=== PATIENT | male | born 2000 | race Caucasian/White ===

== ENCOUNTER 2022-07-02 13:23 | Observation (INO) | payer BC, SELFPAY ==
[2022-07-02] VITALS (14 sets, daily range): BP systolic 94–128; BP diastolic 52–85; PULSE 69–90; RESP 12–16; TEMP 36–36.9; O2SAT 96–100; BMI 18.7; BMI 18.4
[2022-07-02 14:16] LABS: Bedside Glucose 455 mg/dL (74-106)
--- NOTE | 2022-07-02 14:21 | EDS_ITS ---
HPI <TERRELL Villalba - Last Filed: 07/02/22 15:34> History of Present Illness Chief Complaint: Hyperglycemia Narrative Narrative: 21-year-old male with history of type 1 diabetes, anxiety, depression, ADHD who is now currently homeless presents to the emergency department for elevated blood sugar, abdominal pain, nausea and vomiting. Patient states that for several years he is not taking care of his blood sugar properly, he states that he only thing of 1 thing at a time and usually does not take care of his blood sugars. He denies any fevers or chills, denies any blood in his stool or his vomit. He has had admissions for DKA in the past, patient denies any chest pain or shortness of breath. [facility] <TERRELL Villalba - Last Filed: 07/02/22 15:34> [facility] Medical History (Updated 07/02/22 @ 15:34 by TERRELL Villalba) MCAD deficiency Type 1 diabetes Allergy/AdvReac Type Severity Reaction Status Date / Time No Known Allergies Allergy Verified 07/02/22 13:28 Surgical History (Updated 07/02/22 @ 13:55 by Rusty Brown RN) History of hernia surgery Social History Smoking Status: Current every day smoker tobacco type: e-cigarettes ROS <TERRELL Villalba - Last Filed: 07/02/22 15:34> ROS ED ROS Narrative Constitutional: Negative for fever, chills, weight loss, weakness Eyes: Negative for vision loss, vision change, double vision ENT: Negative for any sore throat, ear pain, congestion Cardiovascular: Negative for any chest pain, tightness, palpitations Respiratory: Negative for any cough, sputum production, hemoptysis, dyspnea, dyspnea on exertion, orthopnea Gastrointestinal: Negative for any diarrhea, constipation, blood in stool, blood in vomit. Positive for abdominal pain, nausea, vomiting, elevated blood sugar : Negative for any dysuria, retention, blood in urine. Positive for urinary frequency Muscle skeletal: Negative for any muscle joint pain, stiffness, myalgias, arthralgias, neck pain, back pain Neurological: Negative for any headache, syncope, numbness or tingling, dizziness Skin: Negative for any rashes, lumps, itching, abrasions, lacerations Psychiatric: Negative for any depression, anxiety, stress, suicidal ideation, homicidal ideation Hematologic: Negative for any easy bruising, excessive bruising, easy bleeding Allergies: Negative for any eczema, hives, rash EXAM <TERRELL Villalba - Last Filed: 07/02/22 15:34> Physical Exam Narrative Exam Narrative: Vital signs reviewed. Patient's blood sugar was in the mid 400s on initial glucose test. HEET: Head normocephalic atraumatic, TMs clear bilaterally. Posterior pharynx is clear, moist mucous membranes. Nares clear bilaterally. Slight smell of ketones in the patient's breath Neck: Supple with no lymphadenopathy or tenderness. No signs of meningismus, negative jolt sign. Cardiac: Regular rate and rhythm no murmurs gallops or rubs, equal peripheral pulses bilaterally. Respiratory: Lungs clear to auscultation bilaterally. No chest tenderness. Abdomen: Soft, nontender, nondistended. No abdominal bruit or pulsatile masses. No hepatosplenomegaly Extremities: No peripheral edema, no signs of gross trauma or deformity. Active full range of motion of all extremities. Neuro: Cranial nerves II through XII intact, no focal neurological deficits. Skin: Clean dry and intact with no rash, purpura, petechiae, vesicles or pustules. Backs/flank: No CVA tenderness, no midline spinal tenderness, no deformity. Psych: Normal mood and affect. No SI, HI or acute psychosis. Const Vital Signs: 07/02/22 13:24 07/02/22 13:53 Temperature 96.8 F L 96.8 F L Temperature Source Temporal Temporal Pulse Rate 84 84 Respiratory Rate 16 16 Blood Pressure 122/84 H 122/84 H Blood Pressure Mean 96 96 Pulse Ox 100 100 Oxygen Delivery Method Room Air Room Air Positive well nourished and well developed General Appearance ED: well developed <Dr. Maikol Hines, DO - Last Filed: 07/02/22 15:28> Physical Exam Const Vital Signs: 07/02/22 13:24 07/02/22 13:53 Temperature 96.8 F L 96.8 F L Temperature Source Temporal Temporal Pulse Rate 84 84 Respiratory Rate 16 16 Blood Pressure 122/84 H 122/84 H Blood Pressure Mean 96 96 Pulse Ox 100 100 Oxygen Delivery Method Room Air Room Air MDM <TERRELL Villalba - Last Filed: 07/02/22 15:34> MDM Lab Data Labs: Laboratory Results - last 24 hr 07/02/22 07/02/22 07/02/22 13:52 14:30 14:30 WBC 10.7 RBC 5.02 Hgb 14.9 Hct 44.9 MCV 89.4 MCH 29.7 MCHC 33.2 RDW Std Deviation 42.1 RDW Coeff of Violeta 12.8 Plt Count 307 MPV 9.0 Immature Gran % (Auto) 0.400 Neut % (Auto) 80.0 H Lymph % (Auto) 14.8 L [place] % (Auto) 3.5 Eos % (Auto) 0.9 Baso % (Auto) 0.4 Absolute Neuts (auto) 8.6 H Absolute Lymphs (auto) 1.59 Nucleated RBC % 0 Sodium 132 L Potassium 4.6 Chloride 99 Carbon Dioxide 15.0 L Anion Gap 18 H BUN 15 Creatinine 0.98 Estim Creat Clear Calc 95.68 Est GFR (MDRD) Af Amer 126 Est GFR (MDRD) Non-Af 104 BUN/Creatinine Ratio 15.3 Glucose 263 H Calcium 9.6 Total Bilirubin 1.00 AST 121 H ALT 243 H Alkaline Phosphatase 121 H Total Protein 7.7 Albumin 4.0 Globulin 3.7 Albumin/Globulin Ratio 1.1 Lipase 42 L Urine Color Urine Clarity Urine pH Ur Specific [place] Urine Protein Urine Glucose (UA) Urine Ketones Urine Occult Blood Urine Nitrite Urine Bilirubin Urine Urobilinogen Ur Leukocyte Esterase Acetone Level POC Glucose 455 H* 07/02/22 07/02/22 14:30 14:30 WBC RBC Hgb Hct MCV MCH MCHC RDW Std Deviation RDW Coeff of Violeta Plt Count MPV Immature Gran % (Auto) Neut % (Auto) Lymph % (Auto) [place] % (Auto) Eos % (Auto) Baso % (Auto) Absolute Neuts (auto) Absolute Lymphs (auto) Nucleated RBC % Sodium Potassium Chloride Carbon Dioxide Anion Gap BUN Creatinine Estim Creat Clear Calc Est GFR (MDRD) Af Amer Est GFR (MDRD) Non-Af BUN/Creatinine Ratio Glucose Calcium Total Bilirubin AST ALT Alkaline Phosphatase Total Protein Albumin Globulin Albumin/Globulin Ratio Lipase Urine Color Straw Urine Clarity Clear Urine pH 6.0 Ur Specific [place] 1.020 Urine Protein Negative Urine Glucose (UA) 1000 H Urine Ketones 150 A* Urine Occult Blood Negative Urine Nitrite Negative Urine Bilirubin Negative Urine Urobilinogen Normal Ur Leukocyte Esterase Negative Acetone Level SMALL H POC Glucose ABG Data ABG results: ABG 07/02/22 14:52 Specimen Type INESSA VBG pH 7.37 VBG pO2 35 VBG HCO3 19 L VBG Total CO2 21 L VBG O2 Sat (Calc) 66 VBG Base Excess -6 L POC Mix VBG pCO2 Pt Tmp 34.0 L Treatment and Re-Evaluation Narrative: Patient appears well, patient appears nontoxic, vital signs are stable. Patient presents the emergency department for uncontrolled blood sugars. Patient is currently homeless, does not have any of his medication, does not check his blood sugar regularly. Patient did receive a DKA work-up.Patient was given IV fluids. Patient's CBC was unremarkable, patient's chemistries show hyponatremia, blood glucose of 263, elevated liver enzymes with elevated AST of 121, ALT of 243 with alkaline phos 121. Patient's acetone level is small, patient's anion gap is 18 VBG was unremarkable. Patient's does meet criteria for diabetic ketoacidosis. Patient was given another liter of normal saline, started on D5 half-normal saline, as well as a insulin drip. Patient be admi tted to the hospital for observation under ICU. Patient is stable. <Dr. Maikol Hines, DO - Last Filed: 07/02/22 15:28> [facility] Narrative Medical decision making narrative: I have personally performed a face to face assessment of the patient and have reviewed the JITENDRA Note. I performed a substantive portion of the visit including all aspects of the following. My otero findings include: History: Patient presents with elevated blood sugars that were noticed today. Patient admits to some mild abdominal pain. Patient also admits to some urinary frequency. Patient denies any nausea or vomiting. Patient denies any chest pain or shortness of breath. Patient is insulin-dependent diabetic. Exam: Vital signs are stable. Patient is afebrile. Patient is in no acute distress. Oral mucosa is pink and moist. Neck is supple. Trachea is midline. There is no JVD. Heart was regular rate and rhythm. Lungs are clear and equal bilaterally. Abdomen is soft. Bowel sounds are normal. There is minimal tenderness. There is no rebound or guarding noted. Cranial nerves II through XII are intact. There are no focal motor or sensory deficits. Medical Decision Making: Patient was given IV fluids, Zofran, and Toradol. CBC was within normal limits. Comprehensive metabolic profile showed an elevated glucose of 263, anion gap was elevated at 18, CO2 was low at 15, sodium was slightly low at 132. Urinalysis shows ketones of 150. Serum acetone was small. Patient started on insulin drip. Patient was started on D5 half-normal saline. Case was discussed with the hospitalist. She will admit the patient to ICU. Patient understood and was agreeable with the plan. All questions were answered. Lab Data Attestation: I reviewed the patient's lab results. Labs: Laboratory Results - last 24 hr 07/02/22 07/02/22 07/02/22 13:52 14:30 14:30 WBC 10.7 RBC 5.02 Hgb 14.9 Hct 44.9 MCV 89.4 MCH 29.7 MCHC 33.2 RDW Std Deviation 42.1 RDW Coeff of Violeta 12.8 Plt Count 307 MPV 9.0 Immature Gran % (Auto) 0.400 Neut % (Auto) 80.0 H Lymph % (Auto) 14.8 L [place] % (Auto) 3.5 Eos % (Auto) 0.9 Baso % (Auto) 0.4 Absolute Neuts (auto) 8.6 H Absolute Lymphs (auto) 1.59 Nucleated RBC % 0 Sodium 132 L Potassium 4.6 Chloride 99 Carbon Dioxide 15.0 L Anion Gap 18 H BUN 15 Creatinine 0.98 Estim Creat Clear Calc 95.68 Est GFR (MDRD) Af Amer 126 Est GFR (MDRD) Non-Af 104 BUN/Creatinine Ratio 15.3 Glucose 263 H Calcium 9.6 Total Bilirubin 1.00 AST 121 H ALT 243 H Alkaline Phosphatase 121 H Total Protein 7.7 Albumin 4.0 Globulin 3.7 Albumin/Globulin Ratio 1.1 Lipase 42 L Urine Color Urine Clarity Urine pH Ur Specific [place] Urine Protein Urine Glucose (UA) Urine Ketones Urine Occult Blood Urine Nitrite Urine Bilirubin Urine Urobilinogen Ur Leukocyte Esterase Acetone Level POC Glucose 455 H* 07/02/22 07/02/22 14:30 14:30 WBC RBC Hgb Hct MCV MCH MCHC RDW Std Deviation RDW Coeff of Violeta Plt Count MPV Immature Gran % (Auto) Neut % (Auto) Lymph % (Auto) [place] % (Auto) Eos % (Auto) Baso % (Auto) Absolute Neuts (auto) Absolute Lymphs (auto) Nucleated RBC % Sodium Potassium Chloride Carbon Dioxide Anion Gap BUN Creatinine Estim Creat Clear Calc Est GFR (MDRD) Af Amer Est GFR (MDRD) Non-Af BUN/Creatinine Ratio Glucose Calcium Total Bilirubin AST ALT Alkaline Phosphatase Total Protein Albumin Globulin Albumin/Globulin Ratio Lipase Urine Color Straw Urine Clarity Clear Urine pH 6.0 Ur Specific [place] 1.020 Urine Protein Negative Urine Glucose (UA) 1000 H Urine Ketones 150 A* Urine Occult Blood Negative Urine Nitrite Negative Urine Bilirubin Negative Urine Urobilinogen Normal Ur Leukocyte Esterase Negative Acetone Level SMALL H POC Glucose ABG Data ABG results: ABG 07/02/22 14:52 Specimen Type INESSA VBG pH 7.37 VBG pO2 35 VBG HCO3 19 L VBG Total CO2 21 L VBG O2 Sat (Calc) 66 VBG Base Excess -6 L POC Mix VBG pCO2 Pt Tmp 34.0 L <Dr. Maikol Hines, DO - Last Filed: 07/02/22 15:28> Critical Care Time Critical Care Time: Yes Critical care time (excluding procedures): 30-74 minutes (32), Including time spent:, Discussing w/Patient &/or Family/Outsole Leveler, Discussing w/Consultants, Arranging Admission or Transfer and Performing Direct Patient Care at Bedside Discharge Plan Dx/Rx/DC Orders Clinical Impression: Diabetic ketoacidosis, Hyperglycemia, H/O medication noncompliance Disposition Disposition: [facility]
[2022-07-02 14:42] LABS: Absolute Lymphocyte Count 1.59 X10^3/uL (0.83-4.51); Absolute Neutrophil Count 8.6 X10^3/uL (2.0-7.7); Basophil# 0.04 X10^3/uL; Basophil% 0.4 % (0-1); Eosinophils% 0.9 % (0-5); Hematocrit 44.9 % (40-54); Hemoglobin 14.9 g/dL (13.0-16.5); Lymphocyte # 1.59 X10^3/ul (0.83-4.51); Lymphocyte % 14.8 % (19-41); Mean Corp Hgb Conc 33.2 g/dL (32-36); Mean Corpuscular Hgb 29.7 pg (27.0-32.0); Mean Corpuscular Volume 89.4 fL (80-94); Monocyte# 0.38 X10^3/uL; Monocyte% 3.5 % (0-10); NRBC Flagged by Analyzer 0 % (0-5); Neutrophil # 8.59 X10^3/uL (2.7-7.7); Platelet Count 307 K/mm3 (150-450); RBC Distribution Width CV 12.8 % (11.6-14.6); RBC Distribution Width SD 42.1 fl (35.1-43.9); Red Blood Count 5.02 M/mm3 (4.6-6.2); White Blood Count 10.7 K/mm3 (4.4-11.0)
[2022-07-02] MEDS: Ondansetron 4 MG/2 ML Vial IV (14:47)
[2022-07-02] MEDS: Ketorolac 15 MG/ML Vial IV (14:47)
[2022-07-02] MEDS: 0.9% Normal Saline 1,000 ML 1000 ML IV (14:48)
[2022-07-02 14:51] LABS: Bacteria 0 SEEN /hpf (None Seen); Mucous, Urine 0 SEEN /hpf (<or=2+); Red Blood Cells-Urine 0 SEEN /hpf (0-5); Squamous Epithelial Cells - UA 0 SEEN /hpf (0-5); White Blood Cells 0 SEEN /hpf (0-5)
[2022-07-02 15:00] LABS: ALB/GLOB Ratio 1.1 RATIO (0.9-2.4); AST(SGOT) 121 U/L (15-37); Alanine Aminotransfer ALT/SGPT 243 U/L (16-61); Alkaline Phosphatase 121 U/L (45-117); Anion Gap 18 (5-15); BUN 15 mg/dL (7-18); BUN/Creat Ratio 15.3 RATIO (10-20); Calcium,Total 9.6 mg/dL (8.5-10.1); Chloride 99 mmol/L (98-107); Creatinine, Serum 0.98 mg/dL (0.70-1.30); EST Glomerular Filtration Rate 104 mL/min (>60); Est Glom Filt Rate - Afr Amer 126 mL/min (>60); Estimated Creatinine Clearance 95.68 ml/min; Globulin 3.7 g/dL (2.2-4.2); Glucose 263 mg/dL (74-106); Lipase 42 U/L (73-393); Potassium 4.6 mmol/L (3.5-5.1); Protein, Total 7.7 g/dL (6.4-8.2); Sodium Level 132 mmol/L (136-145)
[2022-07-02 15:01] LABS: Blood Gas Specimen Type VEN; VBG BASE EXCESS -6 mmol/L (-1.0-3.5); VBG Bicarbonate 19 mmol/L (22-26); VBG PO2 35 mmHg (25-40); VBG SO2 66 % (50-70); VBG TCO2 21 mmol/L (23-33); VBG pH 7.37 (7.32-7.42)
[2022-07-02 15:01] LABS: Color, Urine Straw (Yellow); Glucose, Dipstick 1000 mg/dl (Normal); Leukocyte Esterase-Dipstick Negative /ul (Negative); Nitrite-Dipstick Negative (Negative); Occult Blood-Urine Negative /ul (Negative); Protein-Dipstick Negative (Negative); Urine Bilirubin Dipstick Negative (Negative); Urine Clarity Clear (Clear); Urine Urobilinogen Normal (Normal)
[2022-07-02 15:06] LABS: Ketone-Dipstick 150 mg/dl (Negative)
--- NOTE | 2022-07-02 15:14 | PCM.HP.STD ---
HPI - General General Date of Admission: 07/02/22 Date of Service: 07/02/22 Chief Complaint: Abdominal pain, nausea, emesis, no recent evaluation of his BS, history of DM Type I, homeless. 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 ED on 07/02/22 with history of 24 hours of progressively worsening fatigue, malaise, nausea without emesis, abdominal cramping, polyuria and polydipsia with elevated BS prompting ED evaluation. He notes having similar shorter duration episodes x 5 this month with elevated BS. He has been moving around a lot and currently staying with his father who has recently remarried. He notes he does take his insulin but has a poor diet. He does not have a PCP. He is currently not employed but him and his fiancee are both noting intention to stay local and get jobs. Work-up in the ED included T96.8, heart rate 84, BP 122/84, respiratory rate 16, 100% on room air, CBC with WC 10.7, hemoglobin 14.9, platelets 307 with left shift, VBG with bicarb 19, CO2 21, pH 7.3, CMP with sodium 132, CO2 15, and a gap 18, BUN/creatinine 15/0.98, glucose 263, total bilirubin 1.0, AST/ALT 121/243, alk phos 121, lipase 42, urinalysis with evidence of dehydration with specific IV 1.020, negative protein, glucose 1000, ketones 150, negative nitrite, negative leukocyte Estrace, small acetone. In the ED patient ministered 1 L normal saline. Discussed with ED staff and requested additional 1 L be administered and patient be initiated on insulin drip. [facility] Medical History (Updated 07/02/22 @ 16:[address] Rosalia Webb MD) History of cigarette smoking MCAD deficiency Nicotine vapor product user Type 1 diabetes Allergy/AdvReac Type Severity Reaction Status Date / Time No Known Allergies Allergy Verified 07/02/22 13:28 Family History (Updated 07/02/22 @ 16:[address] Rosalia Webb MD) Mother Anxiety and depression Father Anxiety and depression Surgical History (Updated 07/02/22 @ 16:[address] Rosalia Webb MD) S/P left inguinal hernia repair Social History (Updated 07/02/22 @ 16:[address] Rosalia Webb MD) household members: other details: Currently living with his father with also financee, reporting moving alot. Smoking Status: Current every day smoker tobacco type: e-cigarettes Smokeless tobacco user: other Electronic Cigarette Use: with nicotine how long ago did patient quit smoking: Used cigarette tobacco 14-16 yrs old, 1/2 ppd until transitioned to vaping. 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 ROS ROS Narrative Admission Review of Systems: CONSTITUTIONAL: No weight loss, fever, chills, + weakness or fatigue. HEENT: Eyes: No visual loss, blurred vision, double vision or yellow sclerae. Ears, Nose, Throat: No hearing loss, sneezing, congestion, runny nose or sore throat. SKIN: No rash or itching, lesions, wounds. CARDIOVASCULAR: No chest pain, chest pressure or chest discomfort, palpitations, edema, orthopnea, syncopal events. RESPIRATORY: No shortness of breath, cough or sputum, wheezing, hemoptysis. GASTROINTESTINAL: + anorexia, nausea, abdominal cramping, occasional, No diarrhea, melena, BRBPR. GENITOURINARY: + Frequency, No dysuria, urgency or retention. NEUROLOGICAL: No headache, dizziness, syncope, paralysis, ataxia, numbness or tingling in the extremities, focal weakness, change in bowel or bladder control, seizure. MUSCULOSKELETAL: + muscle, back pain, joint pain or stiffness. HEMATOLOGIC: No anemia, bleeding or bruising. LYMPHATICS: No enlarged nodes. No history of splenectomy. PSYCHIATRIC: + history of depression or anxiety. ENDOCRINOLOGIC: No reports of sweating, cold or heat intolerance. + polyuria or polydipsia. ALLERGIES: No history of asthma, hives, eczema or rhinitis. Vital Signs Vital Signs Vital Signs: 07/02/22 13:24 07/02/22 13:53 Temperature 96.8 F L 96.8 F L Temperature Source Temporal Temporal Pulse Rate 84 84 Respiratory Rate 16 16 Blood Pressure 122/84 H 122/84 H Blood Pressure Mean 96 96 Pulse Ox 100 100 Oxygen Delivery Method Room Air Room Air Weight Weight: 123 lb Body Mass Index (BMI) 18.7 Physical Exam Narrative Physical Examination: General: Awake, alert, oriented x 3 and cooperative, laying in the ED bed, fatigued, notes abdominal cramping and nausea somewhat improved, somewhat tearful following discussions. Skin: Normal color, normal turgor, no icterus, no cyanosis. HEENT: AT/NC, EOMI, PERRLA, dry MM, no carotid bruits or JVD noted. Lungs: Mildly diminished, greater bases, appropriate effort, no rales, ronchi or wheezing. Heart: Currently regular rate and rhythm; no gallop, rub audible. Abdomen: Soft, mild generalized discomfort with palpation but no rebound or guarding, ND, hyperactive BS, no HSM. Extremities: No cyanosis, clubbing, or edema. Neurological: Patient awake, alert, oriented as noted, cognitive function intact; pupils equally reactive to light and accommodation, cranial nerves II-XII grossly normal, moving all 4 extremities, no focal deficits, strength mildly to moderately global decrease secondary to acute presentation. Psychiatric: Affect appears fatigued, mildly ill-appearing, tearful with some discussions, does have underlying depression and anxiety likely. Results Lab / Micro Data Result Diagrams: 07/02/22 14:30 07/02/22 14:30 Labs: Laboratory Results - last 24 hr 07/02/22 13:52: POC Glucose 455 H* 07/02/22 14:30: WBC 10.7, RBC 5.02, Hgb 14.9, Hct 44.9, MCV 89.4, MCH 29.7, MCHC 33.2, RDW Std Deviation 42.1, RDW Coeff of Violeta 12.8, Plt Count 307, MPV 9.0, Immature Gran % (Auto) 0.400, Neut % (Auto) 80.0 H, Lymph % (Auto) 14.8 L, [place] % (Auto) 3.5, Eos % (Auto) 0.9, Baso % (Auto) 0.4, Absolute Neuts (auto) 8.6 H, Absolute Lymphs (auto) 1.59, Nucleated RBC % 0 07/02/22 14:30: Sodium 132 L, Potassium 4.6, Chloride 99, Carbon Dioxide 15.0 L, Anion Gap 18 H, BUN 15, Creatinine 0.98, Estim Creat Clear Calc 95.68, Est GFR (MDRD) Af Amer 126, Est GFR (MDRD) Non-Af 104, BUN/Creatinine Ratio 15.3, Glucose 263 H, Calcium 9.6, Total Bilirubin 1.00, AST 121 H, ALT 243 H, Alkaline Phosphatase 121 H, Total Protein 7.7, Albumin 4.0, Globulin 3.7, Albumin/Globulin Ratio 1.1, Lipase 42 L 07/02/22 14:30: Acetone Level SMALL H 07/02/22 14:30: Urine Color Straw, Urine Clarity Clear, Urine pH 6.0, Ur Specific [place] 1.020, Urine Protein Negative, Urine Glucose (UA) 1000 H, Urine Ketones 150 A*, Urine Occult Blood Negative, Urine Nitrite Negative, Urine Bilirubin Negative, Urine Urobilinogen Normal, Ur Leukocyte Esterase Negative ABG Data ABG results: ABG 07/02/22 14:52 Specimen Type INESSA VBG pH 7.37 VBG pO2 35 VBG HCO3 19 L VBG Total CO2 21 L VBG O2 Sat (Calc) 66 VBG Base Excess -6 L POC Mix VBG pCO2 Pt Tmp 34.0 L Assessment & Plan Assessment/Plan (1) Diabetic ketoacidosis: PLAN: Plan The patient is a 21 y/o M w/ PMHx: MCAD deficiency, Diabetes mellitus type I, Tobacco use (Cigarette->Vaping), Prior Hx Substance abuse (Vivance, Acid, 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 ED on 07/02/22 with history of 24 hours of progressively worsening fatigue, malaise, nausea without emesis, abdominal cramping, polyuria and polydipsia with elevated BS prompting ED evaluation. #1. DKA w/ Diabetes mellitus type I: In the ED and started on an insulin drip and administered 2L NS. Will admit to the ICU, continue on insulin drip, check serial K+, glucose w/ IVF changes pending these levels, serial chemistry, obtain mag, phos daily w/ repletion as needed, transition to home SC regimen when gap closed w/ overlap on drip with likely alterations pending HgBA1c, nutrition consultation. Encouraged diet and insulin regimen compliance. Patient in the ED given PCP list and requested he decide on follow-up care in order to establish and have good follow-up. #2. MCAD Deficiency with elevated LFTs, likely chronic: Admission CMP w/ T bili 1.0, AST/LT 121/243, alk phos 121, likely chronic and secondary to underlying MCAD disease. Currently patient does appear stable. To be cautious will also obtain ammonia level to have a baseline. Strongly encouraged aggressive outpatient follow-up with PCP establishment to closely monitor. To be cautious will obtain hepatitis panel given substance abuse although primarily seems as it has been ingested and will also obtain liver ultrasound for baseline. #3. Former cigarette tobacco use, transition to nicotine vaping: Encouraged continued cigarette tobacco cessation but also advised strongly against nicotine vaping, nicotine replacement offered. #4. History of polysubstance abuse, primarily ingested psychedelics: Strongly encouraged avoidance of substance abuse, UDS as requested and pending. Likely liver function elevation secondary to #2 however to be cautious hepatitis panel has been requested. #5. DVT prophylaxis: SCDs, heparin. Charges/Coding Visit Charges OBSV E&M: 99448 Initial observation care L3
[2022-07-02 15:47] LABS: Magnesium 2.2 mg/dL (1.6-2.6)
--- NOTE | 2022-07-02 15:52 | CM.ED ---
DULCE MARIA and met with patient and reviewed the importance of having a PCP. Patient was given [facility] Healthcare Provider Directory and advised to secure an provider MOJGAN. No other issues or concerned voice. DULCE MARIA remains available if needs arise Rosario LUEVANO
[2022-07-02] MEDS: 0.9% Normal Saline 1,000 ML 999 ML IV (15:56)
[2022-07-02 15:57] LABS: Hemoglobin A1c 9.1 % (3.8-5.6)
--- NOTE | 2022-07-02 16:10 | ED.RN ---
Spoke with Dr Webb regarding fluids, pt's current blood sugar, IV insulin drip. Dr Webb would like to hold off on insulin drip & d5 fluids and finish the ns 2nd liter and pt to get up to ICU for the rest of the orders.
--- NOTE | 2022-07-02 16:21 | NURSING ---
ICU OBS WHITE DKA
[2022-07-02 16:25] LABS: Bedside Glucose 127 mg/dL (74-106)
--- NOTE | 2022-07-02 16:42 | NURSING ---
CV ICU 201
--- NOTE | 2022-07-02 16:48 | ED.RN ---
Report called to Irlanda in ICU. Aware of orders from Dr Webb.
--- NOTE | 2022-07-02 17:04 | US_ITS ---
STUDY: ABDOMINAL ULTRASOUND - RIGHT UPPER QUADRANT REASON FOR VISIT: Male, 21 years old Elevated LFTs TECHNIQUE: Ultrasound evaluation of the right upper quadrant was performed with real-time and static lockhart-scale imaging. TECHNICAL QUALITY: Adequate. COMPARISON: None. FINDINGS: LIVER: Length 20.3 cm. Increased echogenicity. Main portal vein patent. GALLBLADDER Size: Distended. Stones: None. Wall thickness: Not thickened. 1 mm. Pericholecystic fluid: None. Sonographic Aguero sign: Negative. EXTRAHEPATIC BILE DUCTS: Common bile duct 2.5 mm not dilated. PANCREAS: Unremarkable. RIGHT KIDNEY: No hydronephrosis. ASCITES: None. US/Liver IMPRESSION: Hepatomegaly with fatty infiltration. Electronically Signed: Ilene Cheema MD at 2:27 EDT ,
[2022-07-02] MEDS: Dext 5%-0.45% NS 1,000 ML 150 ML IV (17:34)
[2022-07-02 17:35] LABS: Bedside Glucose 115 mg/dL (74-106)
[2022-07-02] MEDS: 0.9% Saline Lock 10 ML Syringe IV (17:35)
[2022-07-02 17:36] LABS: Amphetamine Urine VISTA NEGATIVE (<1000 ng/mL); Barbiturate Urine VISTA NEGATIVE (< 200 ng/mL); Benzodiazepine Urine VISTA NEGATIVE (< 200 ng/mL); Cocaine Urine VISTA NEGATIVE (< 300 ng/mL); Ecstacy Urine VISTA NEGATIVE (< 500 ng/mL); Methadone Urine VISTA NEGATIVE (< 300 ng/mL); PCP Urine VISTA NEGATIVE (< 25 ng/mL); THC Urine VISTA POSITIVE (< 50 ng/mL); Vista UDS pH Range 5
[2022-07-02 18:11] LABS: Anion Gap 11 (5-15); BUN 13 mg/dL (7-18); BUN/Creat Ratio 17.3 RATIO (10-20); Calcium,Total 8.5 mg/dL (8.5-10.1); Chloride 106 mmol/L (98-107); Creatinine, Serum 0.75 mg/dL (0.70-1.30); EST Glomerular Filtration Rate 141 mL/min (>60); Est Glom Filt Rate - Afr Amer 171 mL/min (>60); Estimated Creatinine Clearance 123.24 ml/min; Glucose 117 mg/dL (74-106); Potassium 3.8 mmol/L (3.5-5.1); Sodium Level 138 mmol/L (136-145)
[2022-07-02] MEDS: Famotidine 20 MG Tablet PO (18:50)
--- NOTE | 2022-07-02 19:33 | CPS ---
cont. pulse oximeter on via nursing
--- NOTE | 2022-07-02 20:00 | NURSING ---
Pt states he feels so much better and would like to be discharged. Notified Dr. Webb who insisted that he stay til morning. Message relayed to pt, informed pt of the importance of checking his labwork and making sure he doesn't go back into DKA. Pt verbalized understanding, but said he would still like to leave. Notified [facility] hospitalist Dr. Watson of pt leaving AMA. AMA paperwork provided to pt. Pt read and signed AMA papers, verbalizing understanding. Copy given to pt. IV removed.
--- NOTE | 2022-07-03 06:47 | DS.PCM_ITS ---
Providers Date of Admission: 07/02/22 Date of Discharge: 07/02/22 Primary Care Physician: No Primary Care Phys Reason For Visit: DKA Diagnosis Discharge Diagnosis (1) Diabetic ketoacidosis: Status: Acute Code(s): E11.10 - Type 2 diabetes mellitus with ketoacidosis without coma Plan The patient is a 21 y/o M w/ PMHx: MCAD deficiency, Diabetes mellitus type I, Tobacco use (Cigarette->Vaping), Prior Hx Substance abuse (Vivance, Acid, Mushrooms but has been clean x 1-2 years) who presents to the [facility] ED on 07/02/22 with history of 24 hours of progressively worsening fatigue, malaise, nausea without emesis, abdominal cramping, polyuria and polydipsia with elevated BS prompting ED evaluation. #1. DKA w/ Diabetes mellitus type I: In the ED and started on an insulin drip and administered 2L NS. Will admit to the ICU, continue on insulin drip, check serial K+, glucose w/ IVF changes pending these levels, serial chemistry, obtain mag, phos daily w/ repletion as needed, transition to home SC regimen when gap closed w/ overlap on drip with likely alterations pending HgBA1c, nutrition consultation. Encouraged diet and insulin regimen compliance. Patient in the ED given PCP list and requested he decide on follow-up care in order to establish and have good follow-up. #2. MCAD Deficiency with elevated LFTs, likely chronic: Admission CMP w/ T bili 1.0, AST/LT 121/243, alk phos 121, likely chronic and secondary to underlying MCAD disease. Currently patient does appear stable. To be cautious will also obtain ammonia level to have a baseline. Strongly encouraged aggressive outpatient follow-up with PCP establishment to closely monitor. To be cautious will obtain hepatitis panel given substance abuse although primarily seems as it has been ingested and will also obtain liver ultrasound for baseline. #3. Former cigarette tobacco use, transition to nicotine vaping: Encouraged continued cigarette tobacco cessation but also advised strongly against nicotine vaping, nicotine replacement offered. #4. History of polysubstance abuse, primarily ingested psychedelics: Strongly encouraged avoidance of substance abuse, UDS as requested and pending. Likely liver function elevation secondary to #2 however to be cautious hepatitis panel has been requested. #5. DVT prophylaxis: SCDs, heparin. Medications at Discharge Home Medications insulin aspart U-100 100 unit/mL (3 mL) subcutaneous pen (Novolog Flexpen U-100 Insulin aspart) 15 unit subcut ACHS DM 07/02/22 insulin glargine 100 unit/mL (3 mL) subcutaneous pen (Lantus Solostar U-100 Insulin) 22 unit subcut DAILY DM 07/02/22 Hospital Course Operations None Procedures None Summary of Care Provided Minutes Spent on Discharge: 25 Hospital Course: The patient is a 21 y/o M w/ PMHx: MCAD deficiency, Diabetes mellitus type I, Tobacco use (Cigarette->Vaping), Prior Hx Substance abuse (Vivance, Acid, Mu shrooms but has been clean x 1-2 years) who presented to the [facility] ED on 07/02/22 with history of 24 hours of progressively worsening fatigue, malaise, nausea without emesis, abdominal cramping, polyuria and polydipsia with elevated BS prompting ED evaluation. He notes having similar shorter duration episodes x 5 this month with elevated BS. He has been moving around a lot and currently staying with his father who has recently remarried. He notes he does take his insulin but has a poor diet. He does not have a PCP. He is currently not employed but him and his fiancee are both noting intention to stay local and get jobs. Work-up in the ED included T96.8, heart rate 84, BP 122/84, respiratory rate 16, 100% on room air, CBC with WC 10.7, hemoglobin 14.9, platelets 307 with left shift, VBG with bicarb 19, CO2 21, pH 7.3, CMP with sodium 132, CO2 15, and a gap 18, BUN/creatinine 15/0.98, glucose 263, total bilirubin 1.0, AST/ALT 121/243, alk phos 121, lipase 42, urinalysis with evidence of dehydration with specific IV 1.020, negative protein, glucose 1000, ketones 150, negative nitrite, negative leukocyte Estrace, small acetone.? In the ED patient ministered 1 L normal saline.? Discussed with ED staff and requested additional 1 L be administered and patient be initiated on insulin drip. Patient was admitted to the ICU, he completed the additional IVFs and plan was to initiate on insulin drip; however, repeat check BMP improved with closed gap thus started crossover with his home SC regimen with planned repeat BMP and if remained close to start diet and further alter IVFs. HgbA1c obtained and noted to be elevated 9.1%. Despite strong encouragement secondary to feeling improved, patient left AMA 07/02/22 evening prior even to his secondary repeat BMP. Weight / BMI Weight Weight: 121 lb 4.068 oz Body Mass Index (BMI) 18.4 ABG / Lab / Microbiology Data Result Diagrams: 07/02/22 14:30 07/02/22 17:15 Laboratory: Laboratory Results - last 24 hr 07/02/22 13:52: POC Glucose 455 H* 07/02/22 14:30: WBC 10.7, RBC 5.02, Hgb 14.9, Hct 44.9, MCV 89.4, MCH 29.7, MCHC 33.2, RDW Std Deviation 42.1, RDW Coeff of Violeta 12.8, Plt Count 307, MPV 9.0, Immature Gran % (Auto) 0.400, Neut % (Auto) 80.0 H, Lymph % (Auto) 14.8 L, [place] % (Auto) 3.5, Eos % (Auto) 0.9, Baso % (Auto) 0.4, Absolute Neuts (auto) 8.6 H, Absolute Lymphs (auto) 1.59, Nucleated RBC % 0 07/02/22 14:30: Sodium 132 L, Potassium 4.6, Chloride 99, Carbon Dioxide 15.0 L, Anion Gap 18 H, BUN 15, Creatinine 0.98, Estim Creat Clear Calc 95.68, Est GFR (MDRD) Af Amer 126, Est GFR (MDRD) Non-Af 104, BUN/Creatinine Ratio 15.3, Glucose 263 H, Calcium 9.6, Total Bilirubin 1.00, AST 121 H, ALT 243 H, Alkaline Phosphatase 121 H, Total Protein 7.7, Albumin 4.0, Globulin 3.7, Albumin/Globulin Ratio 1.1, Lipase 42 L 07/02/22 14:30: Acetone Level SMALL H 07/02/22 14:30: Urine Color Straw, Urine Clarity Clear, Urine pH 6.0, Ur Specific [place] 1.020, Urine Protein Negative, Urine Glucose (UA) 1000 H, Urine Ketones 150 A*, Urine Occult Blood Negative, Urine Nitrite Negative, Urine Bilirubin Negative, Urine Urobilinogen Normal, Ur Leukocyte Esterase Negative, Urine RBC 0 SEEN, Urine WBC 0 SEEN, Ur Squamous Epith Cells 0 SEEN, Urine Bacteria 0 SEEN, Urine Mucus 0 SEEN 07/02/22 14:30: Phosphorus 4.0, Magnesium 2.2 07/02/22 14:30: Hemoglobin A1c 9.1 H 07/02/22 14:30: Urine Opiates Screen NEGATIVE, Urine Methadone Screen NEGATIVE, Ur Barbiturates Screen NEGATIVE, Ur Phencyclidine Scrn NEGATIVE, Ur Amphetamines Screen NEGATIVE, MDMA (Ecstasy) Screen NEGATIVE, U Benzodiazepines Scrn NEGATIVE, Urine Cocaine Screen NEGATIVE, U Cannabinoids Screen POSITIVE H, Ur Drug Screen Comment 07/02/22 16:04: POC Glucose 127 H 07/02/22 17:14: POC Glucose 115 H 07/02/22 17:15: Ammonia 29.0 07/02/22 17:15: Sodium 138, Potassium 3.8, Chloride 106, Carbon Dioxide 21.0, Anion Gap 11, BUN 13, Creatinine 0.75, Estim Creat Clear Calc 123.24, Est GFR (MDRD) Af Amer 171, Est GFR (MDRD) Non-Af 141, BUN/Creatinine Ratio 17.3, Glucose 117 H, Calcium 8.5 ABG: ABG 07/02/22 14:52 Specimen Type INESSA VBG pH 7.37 VBG pO2 35 VBG HCO3 19 L VBG Total CO2 21 L VBG O2 Sat (Calc) 66 VBG Base Excess -6 L POC Mix VBG pCO2 Pt Tmp 34.0 L Radiography Diagnostic Testing: Radiology Impression Liver Ultrasound 07/02/22 17:04 IMPRESSION: Hepatomegaly with fatty infiltration. Electronically Signed: Ilene Cheema MD at 2:27 EDT , Meaningful Use Info Meaningful Use Diagnoses (Choose all that apply): None applicable Discharge Plan Admission Admit Date/Time: 07/02/22 15:18 Primary Reason for Your Visit: DKA, Poorly controlled Diabetes mellitus type I Attending Provider: Rosalia Webb Primary Care Provider: Care Physician,Na Primary Discharge Orders/Prescriptions Prescriptions: No Action insulin aspart U-100 [Novolog Flexpen U-100 Insulin] 100 unit/mL (3 mL) Insulin Pen 15 unit SUBCUT ACHS Label Comments: PT STATES IT IS A VIAL NOT SURE OF THE EXACT UNITS. HAS NOT HAD FILLED IN A WHILE HAD SOME VIALS AT HOME AND NEEDS A NEW RX. insulin glargine [Lantus Solostar U-100 Insulin] 100 unit/mL (3 mL) insulin pen 22 unit SUBCUT DAILY Label Comments: ADMINISTER 18 UNITS ONLY DAILY AT THE SAME TIME EACH DAY. DOSE CHANGES FREQUENTLY. Referrals / Follow Up: Care Physician,No Primary [Primary Care Provider] - NOT,DEFINED [Non-Staff] - Disposition Disposition (needs filled in before D/C Order can be placed): Against Medical Advice
== END 2022-07-02 20:03 | disposition left against medical advice (07) ==
LOC: ED 15:28 → ICU 16:45
PROVIDERS: Nurse Practitioner; Admitting Provider Family Medicine; Emergency Provider Emergency Medicine; Visit Provider Family Medicine
DX: E10.10 Type 1 diabetes mellitus with ketoacidosis without coma (principal); Z79.4 Long term (current) use of insulin; Z59.00 Homelessness unspecified; R35.0 Frequency of micturition; R11.2 Nausea with vomiting, unspecified; E86.0 Dehydration; F17.290 Nicotine dependence, other tobacco product, uncomplicated
CPT/HCPCS: 76705; 80048; 80053; 80307; 81001; 82009; 82140; 82803; 82962; 83036; 83690; 83735; 84100; 85025; 96361; 96374; 96375; 99218; 99283; 99406; J7030; A4216; G0378; J2405; J7799

== ENCOUNTER 2023-08-16 16:36 | Observation (INO) | payer BC, SELFPAY ==
[2023-08-16] VITALS (12 sets, daily range): BP systolic 111–134; BP diastolic 75–94; PULSE 62–110; RESP 14–20; TEMP 36.5–36.9; O2SAT 100; BMI 17.1; BMI 17.9
--- NOTE | 2023-08-16 17:08 | EX.ED.DYSGE1 ---
HPI History of Present Illness Chief Complaint: Cold Sx Informant: patient Associated Symptoms Associated Symptoms ED: cough Narrative Narrative: 3 to 4 days of worsening illness, fevers subjective, myalgias with pains in the legs and low back mostly, headaches, nausea, vomiting, a little bit of loose nonbloody diarrhea, no chest pain or abdominal pain but having a mild cough and some occasional shortness of breath. Significant malaise. He states after getting sick, all of his roommates now have it. PFSH PFSH Medical History Anxiety Depression H/O medication noncompliance History of cigarette smoking MCAD deficiency Nicotine vapor product user Type 1 diabetes Home Medications insulin aspart U-100 100 unit/mL (3 mL) subcutaneous pen (Novolog FlexPen U-100 Insulin aspart) 15 unit subcut ACHS DM 07/02/22 [History Last Taken 07/02/22 12:00] insulin glargine 100 unit/mL (3 mL) subcutaneous pen (Lantus Solostar U-100 Insulin) 22 unit subcut DAILY DM 07/02/22 [History Last Taken 07/02/22] Allergy/AdvReac Type Severity Reaction Status Date / Time No Known Allergies Allergy Verified 08/16/23 16:42 Family History (Updated 07/02/22 @ 16:[address] Rosalia Webb MD) Mother Anxiety and depression Father Anxiety and depression Surgical History S/P left inguinal hernia repair Social History household members: other details: Currently living with his father with also financee, reporting moving alot. Smoking Status: Current every day smoker tobacco type: e-cigarettes Smokeless tobacco user: other Electronic Cigarette Use: with nicotine how long ago did patient quit smoking: Used cigarette tobacco 14-16 yrs old, 1/2 ppd until transitioned to vaping. 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 ROS ROS ED Constitutional Constitutional ED: Reports body ache(s), chills, fatigue, fever(s), headache(s), malaise and subjective Eyes Eyes: Denies change in vision or diplopia ENT ENT ED: Denies ear pain, rhinorrhea or sore throat Cardiovascular Cardiovascular: Denies chest pain or palpitations Respiratory/Chest Respiratory/Chest: Reports cough and dyspnea; Denies sputum Gastrointestinal Gastrointestinal: Reports diarrhea, nausea and vomiting; Denies abdominal pain Genitourinary Genitourinary ED: Reports urinary frequency; Denies dysuria or hematuria Musculoskeletal Musculoskeletal: Reports back pain and myalgias; Denies neck pain Integumentary Denies abscess or rash Neurologic Neurologic: Reports headache(s); Denies paresthesias or weakness Psychiatric Psychiatric: Denies anxiety or suicidal thoughts EXAM Physical Exam Const Vital Signs: 08/16/23 16:40 08/16/23 17:24 08/16/23 17:40 Temperature 97.7 F L Temperature Source Oral Pulse Rate 62 81 Respiratory Rate 20 H 16 Respiratory Effort Normal Non-Labored Respiratory Pattern Normal Blood Pressure 117/85 H 134/79 H Blood Pressure Mean 95 97 Pulse Ox 100 100 Oxygen Delivery Method Room Air Room Air Positive well nourished and well developed Constitutional Narrative: Malaised-appearing, no distress General Appearance ED: well developed and NAD HEENT Reports moist mucous membranes normocephalic and atraumatic Eyes PERRL and EOMs intact bilaterally Neck full ROM and supple Chest Wall inspection of chest normal Resp normal respiratory effort and clear to auscultation bilaterally Effort and Inspection: Negative for retractions Cardio regular rate, regular rhythm and no murmurs Rate: Negative for tachycardic GI non-tender and non-distended Auscultation: normoactive bowel sounds Palpation: soft Back/Spine no CVA tenderness General Back: other FROM Extremity normal to inspection and no calf tenderness General Extremety ED: Negative for edema, pulses abnormal or tenderness General Extremity: Negative for edema or pulses abnormal Neuro oriented x3, CN's II-XII intact bilaterally and no sensory deficits noted Sensorium / Orientation: awake and alert Motor Exam: strength 5/5 throughout Psych Mood & Affect: anxious Skin no rashes or lesions noted and no wounds MDM MDM MDM Narrative Medical decision making narrative: Suspect possible DKA based on his symptoms, but he could also have gastroenteritis viral, pneumonia, worked him up for all of this. Work-up is consistent with DKA, chest x-ray 2 views of my interpretation negative for pneumonia radiology in agreement. His blood sugar is only 210 on the metabolic screen, so we will start him on insulin drip in addition to D5 half normal at 125 and admitted to the hospital. We will also administer IV potassium prior to the insulin. History & Record Review Additional record(s) reviewed:: Prior labs Lab Data Attestation: I reviewed the patient's lab results. Labs: Laboratory Results - last 24 hr 08/16/23 08/16/23 17:20 17:38 WBC 4.0 L RBC 4.11 L Hgb 12.2 L Hct 37.2 L MCV 90.5 MCH 29.7 MCHC 32.8 RDW Std Deviation 43.0 RDW Coeff of Violeta 12.9 Plt Count 228 MPV 8.8 Immature Gran % (Auto) 1.500 H Neut % (Auto) 51.9 Lymph % (Auto) 34.4 [place] % (Auto) 11.4 H Eos % (Auto) 0.3 Baso % (Auto) 0.5 Absolute Neuts (auto) 2.1 Absolute Lymphs (auto) 1.36 Nucleated RBC % 0 Sodium 134 L Potassium 3.3 L Chloride 101 Carbon Dioxide 16.0 L Anion Gap 17 H BUN 9 Creatinine 0.97 Est GFR (MDRD) Af Amer 126 Est GFR (MDRD) Non-Af 104 BUN/Creatinine Ratio 9.2 L Glucose 210 H Calcium 7.9 L Urine Color Yellow Urine Clarity Clear Urine pH 5.0 Ur Specific [place] 1.025 Urine Protein 15 H Urine Glucose (UA) 1000 H Urine Ketones 150 A* Urine Occult Blood Negative Urine Nitrite Negative Urine Bilirubin Negative Urine Urobilinogen Normal Ur Leukocyte Esterase Negative Urine RBC 0 SEEN Urine WBC 0 SEEN Ur Squamous Epith Cells 0 SEEN Urine Bacteria 0 SEEN Urine Mucus 0 SEEN Acetone Level LARGE H ABG Data ABG results: ABG 08/16/23 18:01 Specimen Type INESSA Sample Site Not entered VBG pH 7.37 VBG pO2 42 H VBG HCO3 14 L VBG Total CO2 15 L VBG O2 Sat (Calc) 78 H VBG Base Excess -11 L POC Mix VBG pCO2 Pt Tmp 24.3 L O2 Delivery Device Not entered Radiography Diagnostic Testing: Clinical Impression(s) from Imaging Studies Chest X-Ray 08/16/23 17:48 IMPRESSION: Normal x-ray examination of the chest. Electronically Signed: Adriana Yadav MD at 18:03 EDT , Management Discussion w/another healthcare provider: Hospitalist Critical Care Time Critical Care Time: Yes Critical care time (excluding procedures): 30-74 minutes (33 min), Including time spent:, Discussing w/Patient &/or Family/Citrus Picker, Discussing w/Consultants, Arranging Admission or Transfer and Performing Direct Patient Care at Bedside Discharge Plan Dx/Rx/DC Orders Clinical Impression: Nausea vomiting and diarrhea, DKA (diabetic ketoacidosis), Hypokalemia Disposition Disposition: Acute Care Hospital [facility]
[2023-08-16] MEDS: 0.9% Normal Saline (1000mL) 1,000 ML 1000 ML IV (17:26)
[2023-08-16] MEDS: Ketorolac 30 MG/ML Syringe IV (17:26)
[2023-08-16] MEDS: Metoclopramide 10 MG/2 ML Vial 5 MG IV (17:27)
[2023-08-16 17:48] LABS: Absolute Lymphocyte Count 1.36 X10^3/uL (0.83-4.51); Absolute Neutrophil Count 2.1 X10^3/uL (2.0-7.7); Basophil# 0.02 X10^3/uL; Basophil% 0.5 % (0-1); Eosinophil# 0.01 X10^3/uL; Eosinophils% 0.3 % (0-5); Hematocrit 37.2 % (40-54); Hemoglobin 12.2 g/dL (13.0-16.5); Lymphocyte # 1.36 X10^3/ul (0.83-4.51); Lymphocyte % 34.4 % (19-41); Mean Corp Hgb Conc 32.8 g/dL (32-36); Mean Corpuscular Hgb 29.7 pg (27.0-32.0); Mean Corpuscular Volume 90.5 fL (80-94); Mean Platelet Vol. 8.8 fl (6.2-12.0); Monocyte# 0.45 X10^3/uL; Monocyte% 11.4 % (0-10); NRBC Flagged by Analyzer 0 % (0-5); Neutrophil # 2.05 X10^3/uL (2.7-7.7); Neutrophil % 51.9 % (47-70); POSITIVE MORPHOLOGY YES; Platelet Count 228 K/mm3 (150-450); RBC Distribution Width CV 12.9 % (11.6-14.6); Red Blood Count 4.11 M/mm3 (4.6-6.2)
--- NOTE | 2023-08-16 17:48 | RAD_ITS ---
STUDY: X-RAY CHEST REASON FOR EXAM: Male, 22 years old. Cough sob TECHNIQUE: PA and lateral views of the chest. COMPARISON: None. FINDINGS: The lungs are clear and expanded. There is no demonstrated pleural abnormality. Normal size heart. Normal mediastinum and jossue. Normal visualized pulmonary arteries. Normal visualized aortic arch and descending thoracic aorta. Normal visualized thoracic spine. Normal visualized ribs, clavicles, and shoulders. There is no demonstrated abnormality of the visualized soft tissue structures of the upper abdomen. RAD/Chest PA and Lateral IMPRESSION: Normal x-ray examination of the chest. Electronically Signed: Adriana Yadav MD at 18:03 EDT ,
[2023-08-16 17:56] LABS: Differential Indicated SCAN CRITERIA MET
[2023-08-16 17:58] LABS: Anion Gap 17 (5-15); BUN 9 mg/dL (7-18); BUN/Creat Ratio 9.2 RATIO (10-20); Calcium,Total 7.9 mg/dL (8.5-10.1); Chloride 101 mmol/L (98-107); Creatinine, Serum 0.97 mg/dL (0.70-1.30); EST Glomerular Filtration Rate 104 mL/min (>60); Est Glom Filt Rate - Afr Amer 126 mL/min (>60); Glucose 210 mg/dL (74-106); Potassium 3.3 mmol/L (3.5-5.1); Sodium Level 134 mmol/L (136-145)
[2023-08-16 18:01] LABS: Bacteria 0 SEEN /hpf (None Seen); Mucous, Urine 0 SEEN /hpf (<or=2+); Red Blood Cells-Urine 0 SEEN /hpf (0-5); Squamous Epithelial Cells - UA 0 SEEN /hpf (0-5); White Blood Cells 0 SEEN /hpf (0-5)
[2023-08-16 18:04] LABS: Color, Urine Yellow (Yellow); Glucose, Dipstick 1000 mg/dl (Normal); Leukocyte Esterase-Dipstick Negative /ul (Negative); Nitrite-Dipstick Negative (Negative); Occult Blood-Urine Negative /ul (Negative); Protein-Dipstick 15 mg/dl (Negative); Specific Gravity, Urine 1.025 (1.002-1.030); Urine Bilirubin Dipstick Negative (Negative); Urine Clarity Clear (Clear); Urine Urobilinogen Normal (Normal)
[2023-08-16 18:04] LABS: Blood Gas Specimen Type VEN; O2 Delivery Device Not entered; SITE Not entered; VBG BASE EXCESS -11 mmol/L (-1.0-3.5); VBG Bicarbonate 14 mmol/L (22-26); VBG PO2 42 mmHg (25-40); VBG SO2 78 % (50-70); VBG TCO2 15 mmol/L (23-33); VBG pCO2 24.3 mmHg (41-51); VBG pH 7.37 (7.32-7.42)
[2023-08-16 18:17] LABS: Ketone-Dipstick 150 mg/dl (Negative)
--- NOTE | 2023-08-16 18:40 | PCM.HP.STD ---
HPI - General General Date of Admission: 08/16/23 Date of Service: 08/16/23 Chief Complaint: Nausea and vomiting HPI Narrative MACHELLE CALIX, is a 22 M who presented to the emergency department at [facility] on 08/16/2023 complaining of multiple somatic complaints including recent fevers, myalgias, headache, nausea, vomiting, and mild diarrhea. Patient denies any chest pain or abdominal pain but did report that he is now having a mild cough. He had significant malaise however he reported he started feeling better on Tuesday overall but then developed nausea and vomiting yesterday. All of his roommates are currently ill as well. He is a type I diabetic and sounds consistent with his insulin dosing. When asked him what his basal insulin dose was he was unable to tell me which was his basal insulin. He clearly needs some extensive education on diabetes and overall management. He was unable to tell me the last time he took his glargine and states he intermittently does not take it because he forgets. He also takes 15 units before meals of NovoLog however it sounds like he is inconsistent with this as well. Vital signs on presentation show a temperature of 97.7, heart rate 62, blood pressure 117/85, respiratory rate was 20 and oxygen saturations 100% on room air. His CBC shows mild leukopenia and anemia with a hemoglobin of 12.2. His differential shows a monocytosis. Chemistry panel shows mild hyponatremia with a sodium of 134, hypokalemia with potassium of 3.3, carbon dioxide of 16 and an anion gap of 17. Serum creatinine is normal. His blood glucose is 210. His UA shows large glucose and ketones at 150 and serum ketones show large acetone. A VBG was obtained and his pH was 7.37. All laboratory data points to mild DKA given his history. Chest x-ray was overall unremarkable. A COVID-19 rapid was performed and was negative. [facility] Medical History Anxiety Depression H/O medication noncompliance History of cigarette smoking MCAD deficiency Nicotine vapor product user Type 1 diabetes Home Medications insulin aspart U-100 100 unit/mL (3 mL) subcutaneous pen (Novolog FlexPen U-100 Insulin aspart) 15 unit subcut .BEFORE MEALS DM 07/02/22 [History Last Taken 07/02/22 12:00] insulin glargine 100 unit/mL (3 mL) subcutaneous pen (Lantus Solostar U-100 Insulin) 22 unit subcut .HS DM 07/02/22 [History Last Taken 07/02/22] dextroamphetamine-amphetamine ER 30 mg 24hr capsule,extend release 30 mg PO DAILY ASK PCP 08/16/23 [History Last Taken Unknown] Allergy/AdvReac Type Severity Reaction Status Date / Time No Known Allergies Allergy Verified 08/16/23 16:42 Family History Mother Anxiety and depression Father Anxiety and depression Surgical History S/P left inguinal hernia repair Social History household members: other details: Currently living with his father with also financee, reporting moving alot. Smoking Status: Current every day smoker tobacco type: e-cigarettes Smokeless tobacco user: other Electronic Cigarette Use: with nicotine how long ago did patient quit smoking: Used cigarette tobacco 16-16 yrs old, 1/2 ppd until transitioned to vaping. 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 ROS Constitutional Constitutional: Reports anorexia, chills, fatigue, fever(s), malaise and weakness; Denies change in weight, night sweats or other Eyes Eyes: Reports blurry vision; Denies change in eye color, change in vision, discharge from eye(s), double vision, erythema, eye pain, loss of vision or other ENT HEENT: Denies abnormal hearing, dysphagia, ear pain, epistaxis, headache(s), hearing loss, nasal congestion, nasal discharge, post nasal drip, sinus pressure, sore throat or other Cardiovascular Cardiovascular: Denies chest pain, claudication, dyspnea on exertion, edema, lightheadedness, orthopnea, palpitations, paroxysmal nocturnal dyspnea, rapid heart rate, syncope or other Respiratory/Chest Respiratory/Chest: Reports cough; Denies dyspnea, excessive phlegm production, hemoptysis, productive cough, shortness of breath at rest, shortness of breath with exertion, wheezing or other Gastrointestinal Gastrointestinal: Reports loose stools, nausea and vomiting; Denies abdominal pain, coffee ground emesis, constipation, diarrhea, dyspepsia, hematemesis, hematochezia, melena or other Genitourinary Genitourinary: Denies burning urination, difficulty urinating, dysuria, hematuria, nocturia, urinary frequency, urinary hesitancy, urinary incontinence, urinary urgency or other Musculoskeletal Musculoskeletal: Reports myalgias; Denies arthralgias, back pain, joint pain, joint stiffness, joint swelling, neck pain or other Neurologic Neurologic: Denies abnormal gait, abnormal speech, confusion, disequilibrium, dizziness, focal weakness, headache(s), numbness, paresthesias, seizure-like activity, seizures, syncope, tingling, tremor(s) or other Psychiatric Psychiatric: Reports anxiety and depression; Denies homicidal ideation, suicidal ideation or other Endocrine Endocrinology: Reports polydipsia; Denies change in body appearance, cold intolerance, excessive sweating, heat intolerance, polyuria or other Hematologic/Lymphatic Hematologic/Lymphatic: Denies anemia, easy bleeding, easy bruising, lymphadenopathy or other Allergic/Immunologic Allergic/Immunologic: Denies rhinitis, hives, eczemia, asthma or other Vital Signs Vital Signs Vital Signs: 08/16/23 16:40 08/16/23 17:24 08/16/23 17:40 Temperature 97.7 F L Temperature Source Oral Pulse Rate 62 81 Respiratory Rate 20 H 16 Respiratory Effort Normal Non-Labored Respiratory Pattern Normal Blood Pressure 117/85 H 134/79 H Blood Pressure Mean 95 97 Pulse Ox 100 100 Oxygen Delivery Method Room Air Room Air Weight Weight: 51.3 kg Body Mass Index (BMI) 17.1 Physical Exam Const alert, oriented x3, no apparent distress and well nourished Constitutional Narrative: Young, thin, white male, sitting up in bed, nursing at bedside, patient appears comfortable and nontoxic General Appearance: cooperative HEENT normocephalic, head/scalp atraumatic, hearing grossly normal bilaterally and moist oral mucous membranes HEENT Narrative: Mallampati 2, no thrush, dentition is good Eyes PERRL, EOMs intact bilaterally and conjunctivae normal Eyes Narrative: No scleral icterus Neck no lymphadenopathy and supple Neck Narrative: Trachea midline, no thyroid enlargement Resp normal respiratory effort, no retractions, no use of accessory muscles and clear to auscultation bilaterally Auscultation: Negative for rales, rhonchi or wheezes Cardio regular rate, regular rhythm, S1 normal heart sound, S2 normal heart sound, no murmurs, no rub, no gallops and no clicks GI normal to inspection, nondistended, normoactive bowel sounds and soft to palpation GI Narrative: Very minimal diffuse tenderness Extremity no clubbing, cyanosis or edema Extremity Narrative: Pedal pulses are 2+ Neuro oriented x3, moves all extremities and no focal motor deficits Speech: speech normal Psych affect normal Psych Narrative: Eye contact is good, patient interacts appropriately Results Lab / Micro Data 08/16/23 17:20 08/16/23 17:20 Labs: Laboratory Results - last 24 hr 08/16/23 17:20: WBC 4.0 L, RBC 4.11 L, Hgb 12.2 L, Hct 37.2 L, MCV 90.5, MCH 29.7, MCHC 32.8, RDW Std Deviation 43.0, RDW Coeff of Violeta 12.9, Plt Count 228, MPV 8.8, Immature Gran % (Auto) 1.500 H, Neut % (Auto) 51.9, Lymph % (Auto) 34.4, [place] % (Auto) 11.4 H, Eos % (Auto) 0.3, Baso % (Auto) 0.5, Absolute Neuts (auto) 2.1, Absolute Lymphs (auto) 1.36, Nucleated RBC % 0, Sodium 134 L, Potassium 3.3 L, Chloride 101, Carbon Dioxide 16.0 L, Anion Gap 17 H, BUN 9, Creatinine 0.97, Est GFR (MDRD) Af Amer 126, Est GFR (MDRD) Non-Af 104, BUN/Creatinine Ratio 9.2 L, Glucose 210 H, Calcium 7.9 L, Acetone Level LARGE H 08/16/23 17:38: Urine Color Yellow, Urine Clarity Clear, Urine pH 5.0, Ur Specific [place] 1.025, Urine Protein 15 H, Urine Glucose (UA) 1000 H, Urine Ketones 150 A*, Urine Occult Blood Negative, Urine Nitrite Negative, Urine Bilirubin Negative, Urine Urobilinogen Normal, Ur Leukocyte Esterase Negative, Urine RBC 0 SEEN, Urine WBC 0 SEEN, Ur Squamous Epith Cells 0 SEEN, Urine Bacteria 0 SEEN, Urine Mucus 0 SEEN Micro: Microbiology 08/16/23 17:20 Nasal Secretion SARS-CoV-2 & FLU Antigen (Rapid) - Final ABG Data ABG results: ABG 08/16/23 18:01 Specimen Type INESSA Sample Site Not entered VBG pH 7.37 VBG pO2 42 H VBG HCO3 14 L VBG Total CO2 15 L VBG O2 Sat (Calc) 78 H VBG Base Excess -11 L POC Mix VBG pCO2 Pt Tmp 24.3 L O2 Delivery Device Not entered Radiology Impression Chest X-Ray 08/16/23 17:48 IMPRESSION: Normal x-ray examination of the chest. Electronically Signed: Adriana Yadav MD at 18:03 EDT , Assessment & Plan Assessment/Plan (1) DKA (diabetic ketoacidosis): (2) Hypokalemia: (3) Nausea vomiting and diarrhea: (4) Acute viral syndrome: PLAN: Plan DKA-mild -Likely the etiology for his nausea and vomiting -Start insulin drip -IV fluids -DKA protocol initiated -Check serial BMPs -Check stat magnesium and phosphorus -Plan to transition off insulin drip once ketones have cleared and anion gap closes Hypokalemia -IV potassium ordered -Check serial BMPs as I do anticipate with insulin supplementation his potassium should drop further -Check magnesium and phosphorus level Acute viral syndrome -Check respiratory viral panel -COVID-19 rapid is negative -Likely etiology for his monocytosis and mild leukopenia -Trend CBC -Supportive care DM-1 -dietitian consultation for education -Patient has significant limited knowledge on his disease process and needs further education with regards to taking his insulin when he is ill -Check hemoglobin A1c ADHD -Continue home medication Nicotine abuse -Patient vapes at baseline -Denies need for nicotine replacement therapy -Monitor for withdrawal symptoms History of substance abuse -Patient states it is remote and no longer an issue DVT prophylaxis -Lovenox subcu CODE STATUS Full code Charges/Coding Visit Charges Inpatient E&M: 92529 Init Hosp L3
[2023-08-16] MEDS: Dext 5%-0.45% NS 1,000 ML 125 ML IV (18:41)
[2023-08-16] MEDS: Insulin Lispro 100 UNIT in 0.9% Normal Saline (100mL Bag) 99 ML 5.1 UNIT CONT INF (18:44)
[2023-08-16 18:49] LABS: Bedside Glucose 123 mg/dL (74-106)
[2023-08-16] MEDS: Potassium Chloride 10mEq/100mL 10 MEQ/100 ML IV.SOLN. 100 MEQ IV BOLUS (18:53)
--- NOTE | 2023-08-16 19:10 | ED.RN ---
ATTEMPTED TO CALL REPORT TO ICU.
[2023-08-16 19:11] LABS: Differential Comment SCANNED
[2023-08-16 19:58] LABS: Bedside Glucose 100 mg/dL (74-106)
[2023-08-16] MEDS: Insulin Lispro 100 UNIT in 0.9% Normal Saline (100mL Bag) 99 ML CONT INF (20:20)
[2023-08-16 20:35] LABS: Anion Gap 11 (5-15); BUN 10 mg/dL (7-18); BUN/Creat Ratio 10.3 RATIO (10-20); Chloride 104 mmol/L (98-107); Creatinine, Serum 0.97 mg/dL (0.70-1.30); EST Glomerular Filtration Rate 104 mL/min (>60); Est Glom Filt Rate - Afr Amer 126 mL/min (>60); Estimated Creatinine Clearance 89.35 ml/min; Glucose 83 mg/dL (74-106); Hemoglobin A1c 8.3 % (3.8-5.6); Potassium 3.4 mmol/L (3.5-5.1); Sodium Level 135 mmol/L (136-145)
[2023-08-16] MEDS: 0.9% Normal Saline (1000mL) 1,000 ML 999 ML IV (20:39)
[2023-08-16] MEDS: 0.9% Normal Saline (1000mL) 1,000 ML 500 ML IV (21:20)
[2023-08-16] MEDS: Dext 5%-0.45% NS 1,000 ML 150 ML IV (21:20)
[2023-08-16] MEDS: Dextrose 50%-Water 25 GM/50 ML DISP.SYRIN IV (21:26)
[2023-08-16 21:56] LABS: Magnesium 2.4 mg/dL (1.6-2.6)
[2023-08-16] MEDS: 0.9% Normal Saline (1000mL) 1,000 ML 250 ML IV (23:27)
[2023-08-16 23:42] LABS: Anion Gap 14 (5-15); BUN 7 mg/dL (7-18); BUN/Creat Ratio 8.4 RATIO (10-20); Calcium,Total 7.4 mg/dL (8.5-10.1); Chloride 107 mmol/L (98-107); Creatinine, Serum 0.84 mg/dL (0.70-1.30); EST Glomerular Filtration Rate 124 mL/min (>60); Est Glom Filt Rate - Afr Amer 150 mL/min (>60); Estimated Creatinine Clearance 103.17 ml/min; Glucose 196 mg/dL (74-106); Potassium 3.6 mmol/L (3.5-5.1); Sodium Level 137 mmol/L (136-145)
[2023-08-17] VITALS (11 sets, daily range): BP systolic 99–120; BP diastolic 51–80; PULSE 78–121; RESP 13–20; TEMP 36.3–36.4; O2SAT 98–100; BMI 19.1
[2023-08-17] MEDS: Insulin Glargine-YFGN 100 UNIT/ML Pen 22 UNIT SC (01:09)
[2023-08-17] MEDS: Ondansetron 4 MG/2 ML Vial IV (01:14)
[2023-08-17 02:26] LABS: Bedside Glucose 263 mg/dL (74-106)
[2023-08-17 02:26] LABS: Bedside Glucose 150 mg/dL (74-106)
[2023-08-17 02:26] LABS: Bedside Glucose 71 mg/dL (74-106)
[2023-08-17 02:26] LABS: Bedside Glucose 159 mg/dL (74-106)
[2023-08-17 02:26] LABS: Bedside Glucose 59 mg/dL (74-106)
[2023-08-17 02:26] LABS: Bedside Glucose 196 mg/dL (74-106)
[2023-08-17 02:26] LABS: Bedside Glucose 286 mg/dL (74-106)
[2023-08-17] MEDS: Insulin Lispro 100 UNIT/ML INSULN.PEN SC ×2 (02:27→08:21)
[2023-08-17] MEDS: 0.9% Normal Saline (1000mL) 1,000 ML 250 ML IV (03:30)
[2023-08-17] MEDS: CLARIFY ORDER 1 EACH NOTE (03:31)
[2023-08-17] MEDS: 0.9% Normal Saline (1000mL) 1,000 ML 125 ML IV (03:37)
[2023-08-17 03:44] LABS: Bedside Glucose 253 mg/dL (74-106)
[2023-08-17 04:29] LABS: Absolute Lymphocyte Count 1.69 X10^3/uL (0.83-4.51); Basophil# 0.03 X10^3/uL; Basophil% 0.6 % (0-1); Eosinophil# 0.01 X10^3/uL; Eosinophils% 0.2 % (0-5); Hematocrit 33.3 % (40-54); Hemoglobin 10.8 g/dL (13.0-16.5); Lymphocyte # 1.69 X10^3/ul (0.83-4.51); Mean Corp Hgb Conc 32.4 g/dL (32-36); Mean Corpuscular Hgb 29.7 pg (27.0-32.0); Mean Corpuscular Volume 91.5 fL (80-94); Mean Platelet Vol. 8.5 fl (6.2-12.0); Monocyte# 0.45 X10^3/uL; Monocyte% 8.5 % (0-10); NRBC Flagged by Analyzer 0 % (0-5); Neutrophil # 3.04 X10^3/uL (2.7-7.7); Neutrophil % 57.6 % (47-70); POSITIVE MORPHOLOGY YES; Platelet Count 170 K/mm3 (150-450); RBC Distribution Width CV 13.1 % (11.6-14.6); RBC Distribution Width SD 43.8 fl (35.1-43.9); Red Blood Count 3.64 M/mm3 (4.6-6.2); White Blood Count 5.3 K/mm3 (4.4-11.0)
[2023-08-17 04:42] LABS: Differential Indicated SCAN CRITERIA MET
[2023-08-17 04:54] LABS: ALB/GLOB Ratio 0.9 RATIO (0.9-2.4); AST(SGOT) 336 U/L (15-37); Alanine Aminotransfer ALT/SGPT 385 U/L (16-61); Albumin, Serum 2.6 g/dL (3.2-5.0); Alkaline Phosphatase 135 U/L (45-117); Anion Gap 13 (5-15); BUN 8 mg/dL (7-18); BUN/Creat Ratio 8.7 RATIO (10-20); Calcium,Total 7.4 mg/dL (8.5-10.1); Chloride 108 mmol/L (98-107); Creatinine, Serum 0.92 mg/dL (0.70-1.30); EST Glomerular Filtration Rate 111 mL/min (>60); Est Glom Filt Rate - Afr Amer 134 mL/min (>60); Globulin 2.9 g/dL (2.2-4.2); Glucose 237 mg/dL (74-106); Magnesium 1.8 mg/dL (1.6-2.6); Phosphorus 2.4 mg/dL (2.5-4.9); Potassium 3.9 mmol/L (3.5-5.1); Protein, Total 5.5 g/dL (6.4-8.2); Sodium Level 137 mmol/L (136-145); Thyroid Stim Hormone (TSH) 0.41 uIU/mL (0.358-3.74)
[2023-08-17 05:04] LABS: Atypical Lymphocyte 1+ %; Differential Comment SCANNED
[2023-08-17] MEDS: Morphine 2 MG/ML Syringe IV (07:08)
--- NOTE | 2023-08-17 07:08 | PN.HOSP_ITS ---
Subjective Subjective Has some nausea. Has not eaten yet. Objective Data Objective Data Vital Signs: Vital Signs Temp Pulse Resp BP Pulse Ox O2 Del Method 36.4 C L 112 H 18 119/80 100 Room Air 08/17/23 00:00 08/17/23 07:00 08/17/23 07:00 08/17/23 07:00 08/17/23 07:00 08/17/23 07:00 Oxygen Delivery Method Room Air Weight: 55.3 kg Body Mass Index (BMI) 19.1 Intake & Output: Intake and Output for Last 24 Hours 08/15/23 08/16/23 08/17/23 23:59 23:59 23:59 Intake Total 3440.69 / 3440.69 1704.17 / 1704.17 Output Total 0 / 0 0 / 0 Balance 3440.69 / 3440.69 1704.17 / 1704.17 Lab / Micro Data 08/17/23 04:20 08/17/23 04:20 Labs: Laboratory Results - last 24 hr 08/16/23 17:20: WBC 4.0 L, RBC 4.11 L, Hgb 12.2 L, Hct 37.2 L, MCV 90.5, MCH 29.7, MCHC 32.8, RDW Std Deviation 43.0, RDW Coeff of Violeta 12.9, Plt Count 228, MPV 8.8, Immature Gran % (Auto) 1.500 H, Neut % (Auto) 51.9, Lymph % (Auto) 34.4, [place] % (Auto) 11.4 H, Eos % (Auto) 0.3, Baso % (Auto) 0.5, Absolute Neuts (auto) 2.1, Absolute Lymphs (auto) 1.36, Nucleated RBC % 0, Differential Comment SCANNED, Sodium 134 L, Potassium 3.3 L, Chloride 101, Carbon Dioxide 16.0 L, Anion Gap 17 H, BUN 9, Creatinine 0.97, Est GFR (MDRD) Af Amer 126, Est GFR (MDRD) Non-Af 104, BUN/Creatinine Ratio 9.2 L, Glucose 210 H, Calcium 7.9 L, Acetone Level LARGE H 08/16/23 17:38: Urine Color Yellow, Urine Clarity Clear, Urine pH 5.0, Ur Specific [place] 1.025, Urine Protein 15 H, Urine Glucose (UA) 1000 H, Urine Ketones 150 A*, Urine Occult Blood Negative, Urine Nitrite Negative, Urine Bilirubin Negative, Urine Urobilinogen Normal, Ur Leukocyte Esterase Negative, Urine RBC 0 SEEN, Urine WBC 0 SEEN, Ur Squamous Epith Cells 0 SEEN, Urine Bacteria 0 SEEN, Urine Mucus 0 SEEN 08/16/23 18:32: POC Glucose 123 H 08/16/23 19:39: POC Glucose 100 08/16/23 20:05: Sodium 135 L, Potassium 3.4 L, Chloride 104, Carbon Dioxide 20.0 L, Anion Gap 11, BUN 10, Creatinine 0.97, Estim Creat Clear Calc 89.35, Est GFR (MDRD) Af Amer 126, Est GFR (MDRD) Non-Af 104, BUN/Creatinine Ratio 10.3, Glucose 83, Hemoglobin A1c 8.3 H, Calcium 8.0 L, Magnesium 2.4 08/16/23 20:19: POC Glucose 71 L 08/16/23 21:22: POC Glucose 59 L 08/16/23 21:48: POC Glucose 159 H 08/16/23 22:12: POC Glucose 150 H 08/16/23 23:05: Sodium 137, Potassium 3.6, Chloride 107, Carbon Dioxide 16.0 L, Anion Gap 14, BUN 7, Creatinine 0.84, Estim Creat Clear Calc 103.17, Est GFR (MDRD) Af Amer 150, Est GFR (MDRD) Non-Af 124, BUN/Creatinine Ratio 8.4 L, Glucose 196 H, Calcium 7.4 L, POC Glucose 196 H 08/17/23 01:07: POC Glucose 263 H 08/17/23 02:07: POC Glucose 286 H 08/17/23 03:25: POC Glucose 253 H 08/17/23 04:20: WBC 5.3, RBC 3.64 L, Hgb 10.8 L, Hct 33.3 L, MCV 91.5, MCH 29.7, MCHC 32.4, RDW Std Deviation 43.8, RDW Coeff of Violeta 13.1, Plt Count 170, MPV 8.5, Immature Gran % (Auto) 1.100 H, Neut % (Auto) 57.6, Lymph % (Auto) 32.0, [place] % (Auto) 8.5, Eos % (Auto) 0.2, Baso % (Auto) 0.6, Absolute Neuts (auto) 3.0, Absolute Lymphs (auto) 1.69, Nucleated RBC % 0, Differential Comment SCANNED, Atypical Lymphocytes 1+, Sodium 137, Potassium 3.9, Chloride 108 H, Carbon Dioxide 16.0 L, Anion Gap 13, BUN 8, Creatinine 0.92, Estim Creat Clear Calc 94.20, Est GFR (MDRD) Af Amer 134, Est GFR (MDRD) Non-Af 111, BUN/Creatinine Ratio 8.7 L, Glucose 237 H, Calcium 7.4 L, Phosphorus 2.4 L, Magnesium 1.8, Total Bilirubin 0.60, AST 336 H, ALT 385 H, Alkaline Phosphatase 135 H, Total Protein 5.5 L, Albumin 2.6 L, Globulin 2.9, Albumin/Globulin Ratio 0.9, TSH 0.41 Micro: Microbiology 08/16/23 22:10 Mucosa - Nose Respiratory Panel (PCR) - Final 08/16/23 17:20 Nasal Secretion SARS-CoV-2 & FLU Antigen (Rapid) - Final ABG Data ABG results: ABG 08/16/23 18:01 Specimen Type INESSA Sample Site Not entered VBG pH 7.37 VBG pO2 42 H VBG HCO3 14 L VBG Total CO2 15 L VBG O2 Sat (Calc) 78 H VBG Base Excess -11 L POC Mix VBG pCO2 Pt Tmp 24.3 L O2 Delivery Device Not entered Radiography Diagnostic Testing: Radiology Impression Chest X-Ray 08/16/23 17:48 IMPRESSION: Normal x-ray examination of the chest. Electronically Signed: Adriana Yadav MD at 18:03 EDT Reading Location ID and State: [facility] / [place] Tel , Service support , Physical Exam Const alert and no apparent distress Neuro Sensorium / Orientation: awake and alert Psych affect normal Assessment & Plan Assessment/Plan (1) DKA (diabetic ketoacidosis): QUALIFIERS: Diabetes mellitus type: type 1 Diabetes mellitus complication detail: without coma Qualified Code(s): E10.10 - Type 1 diabetes mellitus with ketoacidosis without coma PLAN: Likely the etiology for his nausea and vomiting Insulin gtt completed. Back on glargine and prandial insulin and SSI IV fluids DKA protocol initiated Check serial BMPs Check stat magnesium and phosphorus Plan to transition off insulin drip once ketones have cleared and anion gap closes (2) Hypokalemia: PLAN: IV potassium ordered Check serial BMPs as I do anticipate with insulin supplementation his potassium should drop further Check magnesium and phosphorus level PLAN: Plan Chronic conditions: * [id number] consultation for education-Patient has significant limited knowledge on his disease process and needs further education with regards to taking his insulin when he is ill-A1c 8.3 * ADHD-Continue home medication * Nicotine abuse-Patient vapes at baseline-Denies need for nicotine replacement therapy-Monitor for withdrawal symptoms * History of substance abuse-Patient states it is remote and no longer an issue DVT prophylaxis-Lovenox subcu CODE STATUS Full code Charges/Coding Visit Charges Inpatient E&M: 05614 Subs Hosp L2
[2023-08-17] MEDS: 0.9% Normal Saline (1000mL) 1,000 ML 75 ML IV ×2 (07:09→13:23)
[2023-08-17 07:52] LABS: Bedside Glucose 345 mg/dL (74-106)
[2023-08-17] MEDS: Enoxaparin 40 MG/0.4 ML Syringe SC (08:20)
[2023-08-17] MEDS: proCHLORPERazine 10 MG/2 ML Vial 5 MG IV (08:20)
[2023-08-17] MEDS: Insulin Lispro 100 UNIT/ML INSULN.PEN 10 UNIT SC ×2 (08:21→13:02)
--- NOTE | 2023-08-17 10:15 | CASEMGMT ---
RN CM NOTE: RN CM to room to complete initial RN CM assessment. Pt sleeping soundly. RN CM to attempt at a later time. Nanda LOPEZN RN CM
[2023-08-17 12:15] LABS: Bedside Glucose 102 mg/dL (74-106)
--- NOTE | 2023-08-17 15:41 | DS.PCM_ITS ---
Providers Date of Admission: 08/16/23 Primary Care Physician: No Primary Care Phys Reason For Visit: DKA Diagnosis Discharge Diagnosis (1) DKA (diabetic ketoacidosis): Status: Acute Code(s): E11.10 - Type 2 diabetes mellitus with ketoacidosis without coma Qualifiers: Diabetes mellitus type: type 1 Diabetes mellitus complication detail: without coma Qualified Code(s): E10.10 - Type 1 diabetes mellitus with ketoacidosis without coma Plan: Likely the etiology for his nausea and vomiting Insulin gtt completed. Back on glargine and prandial insulin and SSI IV fluids DKA protocol initiated Check serial BMPs Check stat magnesium and phosphorus Plan to transition off insulin drip once ketones have cleared and anion gap closes (2) Hypokalemia: Status: Acute Code(s): E87.6 - Hypokalemia Plan: IV potassium ordered Check serial BMPs as I do anticipate with insulin supplementation his potassium should drop further Check magnesium and phosphorus level Plan Chronic conditions: * [id number]-[id number] consultation for education-Patient has significant limited knowledge on his disease process and needs further education with regards to taking his insulin when he is ill-A1c 8.3 * ADHD-Continue home medication * Nicotine abuse-Patient vapes at baseline-Denies need for nicotine replacement therapy-Monitor for withdrawal symptoms * History of substance abuse-Patient states it is remote and no longer an issue DVT prophylaxis-Lovenox subcu CODE STATUS Full code Medications at Discharge Home Medications insulin glargine 100 unit/mL (3 mL) subcutaneous pen (Lantus Solostar U-100 Insulin) 22 unit subcut .HS DM 07/02/22 dextroamphetamine-amphetamine ER 30 mg 24hr capsule,extend release 30 mg PO DAILY ASK PCP 08/16/23 insulin aspart U-100 100 unit/mL (3 mL) subcutaneous pen (Novolog FlexPen U-100 Insulin aspart) 15 unit (0.15 mL) subcut .BEFORE MEALS DM #15 mL 08/17/23 Hospital Course Operations None Procedures None Summary of Care Provided Minutes Spent on Discharge: 32 Hospital Course: Patient presents with nausea and vomiting. Patient been having the symptoms for few days and because he was not eating, did not take his insulin. He presented with diabetic ketoacidosis. Patient started IV fluids as well as an insulin drip and his DKA did resolve and patient was transitioned back to his basal and prandial insulin. Patient advised to, cut back his insulin if he has incidence where he is not able to eat or drink as he does not produce any insulin in the future or at the minimum to reach out to his primary care provider about recommendations. Patient will be seeing social science manager on 25 August. Hopefully after that he can reach out to them if he does have further issues in the future. Patient states that he is good on all his home medications with the exception of his NovoLog which he will need a prescription for. Patient has been eating and drinking since his arrival and will be discharged home. Medical Records Data Medical Nutrition Assessment Dietitian: Malnutrition Criteria Met Start: 08/17/23 13:44 Freq: Status: Active Protocol: Document 08/17/23 13:44 AG (Rec: 08/17/23 13:44 AG [id number]) Nutrition Malnutrition Evidence of Malnutrition Exists Yes Malnutrition (severe): Acute Illness/Injury Evidenced By Suboptimal Energy Intake ( Severe),Weight Loss (Severe) Clinical Problem Acute Disease or Injury Related Malnutrition Etiology severe, acute malnutrition related to inadequate energy intake w/ acute illness Signs/Symptoms as evidenced by estimated PO intake meeting <50% of estimated energy needs x 5 days, unintentional 3.1#/2.5% wt loss < 1 week Status Active Problem Recommendation Dietitian Recommendations/Changes will adjust diet to CHO Controlled (no calorie restriction) given evidence of malnutrition; will monitor PO intake and add ONS as needed if PO intake is poor at meals Weight / BMI Weight Weight: 55.3 kg Body Mass Index (BMI) 19.1 ABG / Lab / Microbiology Data 08/17/23 04:20 08/17/23 04:20 Laboratory: Laboratory Results - last 24 hr 08/16/23 17:20: WBC 4.0 L, RBC 4.11 L, Hgb 12.2 L, Hct 37.2 L, MCV 90.5, MCH 29.7, MCHC 32.8, RDW Std Deviation 43.0, RDW Coeff of Violeta 12.9, Plt Count 228, MPV 8.8, Immature Gran % (Auto) 1.500 H, Neut % (Auto) 51.9, Lymph % (Auto) 34.4, Bollinger % (Auto) 11.4 H, Eos % (Auto) 0.3, Baso % (Auto) 0.5, Absolute Neuts (auto) 2.1, Absolute Lymphs (auto) 1.36, Nucleated RBC % 0, Differential Comment SCANNED, Sodium 134 L, Potassium 3.3 L, Chloride 101, Carbon Dioxide 16.0 L, Anion Gap 17 H, BUN 9, Creatinine 0.97, Est GFR (MDRD) Af Amer 126, Est GFR (MDRD) Non-Af 104, BUN/Creatinine Ratio 9.2 L, Glucose 210 H, Calcium 7.9 L, Acetone Level LARGE H 08/16/23 17:38: Urine Color Yellow, Urine Clarity Clear, Urine pH 5.0, Ur Specific Hewitt 1.025, Urine Protein 15 H, Urine Glucose (UA) 1000 H, Urine Ketones 150 A*, Urine Occult Blood Negative, Urine Nitrite Negative, Urine Bilirubin Negative, Urine Urobilinogen Normal, Ur Leukocyte Esterase Negative, Urine RBC 0 SEEN, Urine WBC 0 SEEN, Ur Squamous Epith Cells 0 SEEN, Urine Bacteria 0 SEEN, Urine Mucus 0 SEEN 08/16/23 18:32: POC Glucose 123 H 08/16/23 19:39: POC Glucose 100 08/16/23 20:05: Sodium 135 L, Potassium 3.4 L, Chloride 104, Carbon Dioxide 20.0 L, Anion Gap 11, BUN 10, Creatinine 0.97, Estim Creat Clear Calc 89.35, Est GFR (MDRD) Af Amer 126, Est GFR (MDRD) Non-Af 104, BUN/Creatinine Ratio 10.3, Glucose 83, Hemoglobin A1c 8.3 H, Calcium 8.0 L, Magnesium 2.4 08/16/23 20:19: POC Glucose 71 L 08/16/23 21:22: POC Glucose 59 L 08/16/23 21:48: POC Glucose 159 H 08/16/23 22:12: POC Glucose 150 H 08/16/23 23:05: Sodium 137, Potassium 3.6, Chloride 107, Carbon Dioxide 16.0 L, Anion Gap 14, BUN 7, Creatinine 0.84, Estim Creat Clear Calc 103.17, Est GFR (MDRD) Af Amer 150, Est GFR (MDRD) Non-Af 124, BUN/Creatinine Ratio 8.4 L, Glucose 196 H, Calcium 7.4 L, POC Glucose 196 H 08/17/23 01:07: POC Glucose 263 H 08/17/23 02:07: POC Glucose 286 H 08/17/23 03:25: POC Glucose 253 H 08/17/23 04:20: WBC 5.3, RBC 3.64 L, Hgb 10.8 L, Hct 33.3 L, MCV 91.5, MCH 29.7, MCHC 32.4, RDW Std Deviation 43.8, RDW Coeff of Violeta 13.1, Plt Count 170, MPV 8.5, Immature Gran % (Auto) 1.100 H, Neut % (Auto) 57.6, Lymph % (Auto) 32.0, Bollinger % (Auto) 8.5, Eos % (Auto) 0.2, Baso % (Auto) 0.6, Absolute Neuts (auto) 3.0, Absolute Lymphs (auto) 1.69, Nucleated RBC % 0, Differential Comment SCANNED, Atypical Lymphocytes 1+, Sodium 137, Potassium 3.9, Chloride 108 H, Carbon Dioxide 16.0 L, Anion Gap 13, BUN 8, Creatinine 0.92, Estim Creat Clear Calc 94.20, Est GFR (MDRD) Af Amer 134, Est GFR (MDRD) Non-Af 111, BUN/Creati nine Ratio 8.7 L, Glucose 237 H, Calcium 7.4 L, Phosphorus 2.4 L, Magnesium 1.8, Total Bilirubin 0.60, AST 336 H, ALT 385 H, Alkaline Phosphatase 135 H, Total Protein 5.5 L, Albumin 2.6 L, Globulin 2.9, Albumin/Globulin Ratio 0.9, TSH 0.41 08/17/23 07:33: POC Glucose 345 H 08/17/23 11:56: POC Glucose 102 Microbiology: Microbiology 08/16/23 22:10 Mucosa - Nose Respiratory Panel (PCR) - Final 08/16/23 17:20 Nasal Secretion SARS-CoV-2 & FLU Antigen (Rapid) - Final ABG: ABG 08/16/23 18:01 Specimen Type INESSA Sample Site Not entered VBG pH 7.37 VBG pO2 42 H VBG HCO3 14 L VBG Total CO2 15 L VBG O2 Sat (Calc) 78 H VBG Base Excess -11 L POC Mix VBG pCO2 Pt Tmp 24.3 L O2 Delivery Device Not entered Radiography Diagnostic Testing: Radiology Impression Chest X-Ray 08/16/23 17:48 IMPRESSION: Normal x-ray examination of the chest. Electronically Signed: Adriana Yadav MD at 18:03 EDT , D/C Instructions Discharge Diet: 2000 Calorie Control Diet Meaningful Use Info Meaningful Use Diagnoses (Choose all that apply): None applicable Discharge Plan Admission Admit Date/Time: 08/16/23 18:33 Primary Reason for Your Visit: DKA Attending Provider: Maikol Serna Primary Care Provider: Care Physician,No Primary Consulting Providers: Rosemarie Anders Instructions Patient Instructions: Diabetes Food Shop Meals Prep, Diabetes: Sick-Day Plan, Diabetes Low Blood Sugar Ch Additional Instructions / Restrictions: If you are feeling sick, cut your insulin dose in half and continue to administer that. It is very important that you do continue her insulin despite not eating. Discharge Orders/Prescriptions Prescriptions: Continued insulin glargine [Lantus Solostar U-100 Insulin] 100 unit/mL (3 mL) insulin pen 22 unit SUBCUT .HS dextroamphetamine-amphetamine 30 mg capsule,extended release 24hr 30 mg PO DAILY Patient Comments: take 1 capsule by mouth once daily insulin aspart U-100 [Novolog FlexPen U-100 Insulin] 100 unit/mL (3 mL) Insulin Pen 15 unit SUBCUT .BEFORE MEALS Qty: 15 0RF Referrals / Follow Up: [facility] [Provider Group] - 08/25/23 10:45 am Care Physician,No Primary [Primary Care Provider] - Disposition Disposition (needs filled in before D/C Order can be placed): Home, Self Care Charges/Coding Visit Charges Inpatient E&M: 62098 Disch Hosp >30min
--- NOTE | 2023-08-17 16:00 | CASEMGMT ---
RN?CM?SLIP PRESSER?CM?to room to meet with patient for initial transition planning/care coordination?assessment.?RN?CM?introduced self and role at [facility].? Pt voices understanding and consents to?assessment?at this time.? Pt resting in bed in no distress at this time.? Pt is A/O at this time and answers all questions appropriately.?? Care providers, pharmacy, and demographics verified/updated at this time. PCP: CARISSA Varghese Specialists: Pt has initial appt w/Dr Peck scheduled for 08/25 [facility] Insurance: [employer] through his mom's job. Pt states he also has [employer] through his dad's job. This is not listed in [employer]. Pt made aware. He states he does not have the insurance card to have info placed in his chart, but that he can get it from his dad. He was made aware to have someone call [facility] to provide this info. Pt states he also has [facility] and states this is a program that cover DM expenses. Prescription Benefit:?Yes Living Will/HPOA:? Pt does not currently have LW/HCPOA and interested in completed HCPOA, stating he would want his sig other, Layla, to be his HCPOA. Pt is discharging today. He was made aware SW would be unable to meet with him today before discharging. He states he would not want to stay any longer anyways, as he is anxious to get home. He was made aware he can complete this as an OP and instructed on who to call to schedule appt. He voices understanding. LNOK: Mother and father are both living. One lives near [facility] and the other lives in [place]. The only contact listed is his sig other, Layla, and pt is aware and states to just have her listed. He states she would know how to reach his parents, if needed. Living Arrangements: Lives w/Layla and his 8-month-old dtr lives w/them. Layla's friend also lives w/them and her friend's 2 children live there. They live in a 2nd-story apt w/8-10 steps to enter. Pt states he is independent and manages his own medications. Transportation: pt states his dad or a friend will take him home @ discharge and someone will be available to pick his rx's up at the pharmacy. DME:States has the following DME:?functioning glucometer w/supplies. Pt states he has a CGM system also, but he does not use it d/t it is painful and he does not like it. He states he has all medications, insulins, and supplies needed. Pt states no need for further DME at this time.? HHC: No hx of HHC. Discussed CCN, Pt Link, and Diabetic clinic. Pt is not interested in any of these programs and declines needing/wanting any DM education or further information. Pt states the dopster has been in to see him. He states he feels he manages his diabetes well and feels he has a good understanding of his medications. Pt accepted CCN contact info, should he change his mind in the future. Pt wishes to return home and states has no concerns with going home. Pt voices no further concerns/needs at this time.? Advised pt to ask for?CM?if any further questions/concerns/needs arise.? Voices understanding. PLAN:??Home Nanda LOPEZN?RN?CM
[2023-08-17 16:38] LABS: Bedside Glucose 131 mg/dL (74-106)
--- NOTE | 2023-08-24 11:15 | CASEMGMT ---
RN JOSE FRANCISCO Follow-up: This RN CM received a prior auth request from [employer] for pt's Aspart insulin. Call placed to [facility] and spoke with Patricia who states they are unable to adjust to a covered insulin in their system despite the inclusion of substitutions allowed on the original script. Pt's insurance prefers HumaLog insulin. Dr. Serna now off service. Attempted to contact pt but voicemail box was full and unable to leave a message. Pt noted to have an appointment with [facility] on 08/25 at 1045. Call placed and message left with their nurse requesting for this to be addressed during this appointment. Contact number for this RN CM left for return call and discussion. Shari Henriquez RN CM
--- NOTE | 2023-08-24 13:33 | CASEMGMT ---
ANMOL CM: Return call received from Tisha with [facility]. Per Tisha, they will follow-up with pt at his appointment tomorrow and ensure pt has his insulin. Shari Henriquez RN CM
== END 2023-08-17 17:15 | disposition home or self-care (01) ==
LOC: ED 18:11 → ICU 08-17 07:05
PROVIDERS: Admitting Provider Internal Medicine; Emergency Provider Emergency Medicine; PCP Internal Medicine
DX: E10.10 Type 1 diabetes mellitus with ketoacidosis without coma (principal); E43 Unspecified severe protein-calorie malnutrition; Z79.4 Long term (current) use of insulin; E87.6 Hypokalemia; F17.290 Nicotine dependence, other tobacco product, uncomplicated; F90.9 Attention-deficit hyperactivity disorder, unspecified type; Z79.899 Other long term (current) drug therapy; Z68.1 Body mass index [BMI] 19.9 or less, adult
CPT/HCPCS: 71046; 80048; 80053; 81001; 82009; 82803; 82962; 83036; 83735; 84100; 84443; 85025; 87428; 87633; 94762; 96361; 96365; 96366; 96368; 96372; 96375; 97802; 99221; 99285; J7030; A4216; G0378; J2405; J7799

== ENCOUNTER 2023-08-21 02:45 | Emergency (ER) | payer BC, SELFPAY ==
[2023-08-21 02:46] VITALS: BP 115/78; PULSE 87; RESP 16; TEMP 36.6; O2SAT 99; BMI 18.8
--- NOTE | 2023-08-21 02:56 | ED.VIS.DENTA ---
HPI History of Present Illness Chief Complaint: Dental Detail of Chief Complaint: Dental pain because of grinding his teeth and he believes he cut his tongue Informant: patient Onset/Context/Timing Onset: Days Context: Sudden Onset Timing: Continuous Quality: Pain left side of the tongue and dental pain Location: Left-sided tongue and multiple teeth Current Severity: Mild Maximum Severity: Moderate Worsened by: Eating or drinking acidic fluids or spicy food Relieved by: NSAIDs and Topicals Associated Symptoms Assocated Symptom - Dental: Negative for fever, jaw swelling, face swelling, cold sensitivity or hot sensitivity Narrative Narrative: Patient is a 22-year-old male with type 1 diabetes who presents because of dental pain. He denies fever or chills. He believes he cut the side of his tongue because there is a lesion noted. He denies drooling. Denies change in voice. He denies difficulty opening or closing his mouth. He states he is taken Tylenol with no improvement. He denies history medic fever, heart murmur or mitral valve prolapse. He denies neck swelling or pain. He denies auditory symptoms Prior similar symptoms: No Recent Illness/Hospitalization: No PFSH PFSH Medical History Anxiety Depression H/O medication noncompliance History of cigarette smoking MCAD deficiency Nicotine vapor product user Type 1 diabetes Home Medications insulin glargine 100 unit/mL (3 mL) subcutaneous pen (Lantus Solostar U-100 Insulin) 22 unit subcut .HS DM 07/02/22 [History Last Taken 07/02/22] dextroamphetamine-amphetamine ER 30 mg 24hr capsule,extend release 30 mg PO DAILY ASK PCP 08/16/23 [History Last Taken Unknown] insulin aspart U-100 100 unit/mL (3 mL) subcutaneous pen (Novolog FlexPen U-100 Insulin aspart) 15 unit (0.15 mL) subcut .BEFORE MEALS DM #15 mL 08/17/23 [Rx Last Taken Unknown] Allergy/AdvReac Type Severity Reaction Status Date / Time No Known Allergies Allergy Verified 08/21/23 02:46 Family History Mother Anxiety and depression Father Anxiety and depression Surgical History S/P left inguinal hernia repair Social History household members: other details: Currently living with his father with also financee, reporting moving alot. Smoking Status: Current every day smoker tobacco type: e-cigarettes Smokeless tobacco user: other Electronic Cigarette Use: with nicotine how long ago did patient quit smoking: Used cigarette tobacco 14-16 yrs old, 1/2 ppd until transitioned to vaping. 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 ROS ROS ED Constitutional Constitutional ED: Denies chills, fever(s), subjective, sweats or weight loss Eyes Eyes: Denies blurry vision or change in vision ENT ENT ED: Reports other Details: Pain and lesion noted to left side also complains of dental pain ; Denies ear pain, rhinorrhea or sore throat Cardiovascular Cardiovascular: Denies chest pain or palpitations Respiratory/Chest Respiratory/Chest: Denies cough, dyspnea or dyspnea on exertion Gastrointestinal Gastrointestinal: Denies nausea or vomiting Musculoskeletal Musculoskeletal: Denies neck pain Integumentary Denies rash Neurologic Neurologic: Denies headache(s) EXAM Physical Exam Const Vital Signs: 08/21/23 02:46 Temperature 98 F Temperature Source Temporal Pulse Rate 87 Respiratory Rate 16 Blood Pressure 115/78 Blood Pressure Mean 90 Pulse Ox 99 Positive well nourished and well developed; Negative for cachectic or unkempt General Appearance ED: well developed and NAD; Negative for unkempt, cachectic or pallor Nutritional Appearance: Negative for cachectic HEENT HEENT Narrative: Is atraumatic and normocephalic. Ears are normal. Nares are patent. There is no discharge noted. Posterior pharynx out erythema or exudate. Uvula is midline. There is no deviation of the tongue with protrusion. Patient has an aphthous ulcer left side of his tongue. Patient may have superficial caries involving the enamel. There is no trismus. There is no preauricular lymphadenopathy. There is no submental or submandibular lymphadenopathy. Mouth ED: Yes lips normal, No tongue normal, Yes salivary gland normal and No mouth trauma Mouth: lips normal, No tongue normal, salivary gland normal and No mouth trauma Teeth and Gingiva: caries; Negative for gingiva abnormal, poor dentition or teeth discoloration Eyes PERRL and EOMs intact bilaterally General Eye ED: Negative for pale conjunctiva or scleral icterus Neck no lymphadenopathy, supple and no JVD General: normal visual inspection; Negative for tenderness or submandibular swelling Resp normal respiratory effort, no retractions and clear to auscultation bilaterally Cardio regular rate, regular rhythm, S1 normal heart sound, S2 normal heart sound and no murmurs Extremity normal to inspection and no joint enlargement Neuro oriented x3, CN's II-XII intact bilaterally and moves all extremities Sensorium / Orientation: alert Psych Appearance: Negative for unkempt Mood & Affect: anxious Skin no rashes or lesions noted and no wounds General Skin Exam: Negative for pallor MDM MDM MDM Narrative Medical decision making narrative: Patient was told to use follow-up with a dentist to have dental x-rays. He states that the lesion on his tongue is an aphthous ulcer. He may have superficial cavities involving the enamel. Treatment is symptomatic. He was given a dental sheet Discharge Plan Triage Chief Complaint: Dental ED Provider: Dre Todd Dx/Rx/DC Orders Clinical Impression: Grinding of teeth, Aphthous ulcer, History of diabetes mellitus Instructions: ED Canker Sore, ED Dental Pain Prescriptions: No Action insulin glargine [Lantus Solostar U-100 Insulin] 100 unit/mL (3 mL) insulin pen 22 unit SUBCUT .HS dextroamphetamine-amphetamine 30 mg capsule,extended release 24hr 30 mg PO DAILY Patient Comments: take 1 capsule by mouth once daily insulin aspart U-100 [Novolog FlexPen U-100 Insulin] 100 unit/mL (3 mL) Insulin Pen 15 unit SUBCUT .BEFORE MEALS Qty: 15 0RF Primary Care Provider: Chaya Varghese NP Referrals: Chaya Varghese NP, [facility]CH[employer]ISING [facility] [Primary Care Provider] - Dentist,Your [STAFF PHYSICIAN] - 5-7 Days Activity Restrictions/Additional Instructions: We will need to contact the dentist to have dental films obtained to determine the exact cause of your dental pain.
== END 2023-08-21 03:07 | disposition home or self-care (01) ==
PROVIDERS: Emergency Provider Emergency Medicine; PCP Internal Medicine; Visit Provider Emergency Medicine
DX: K12.0 Recurrent oral aphthae (principal); Z79.4 Long term (current) use of insulin; E10.9 Type 1 diabetes mellitus without complications; F17.290 Nicotine dependence, other tobacco product, uncomplicated
CPT/HCPCS: 99282

== ENCOUNTER 2023-10-23 23:13 | Observation (INO) | payer BC, OTHER, SELFPAY ==
[2023-10-23 23:14] VITALS: BP 125/93; PULSE 111; RESP 18; TEMP 36.8; O2SAT 99; BMI 18.7
--- NOTE | 2023-10-23 23:31 | EDS_ITS ---
HPI History of Present Illness Chief Complaint: Hyperglycemia Informant: patient Narrative Narrative: 22-year-old diabetic male presenting to the emergency room with elevated blood sugars and vomiting. Patient states that yesterday he had 2 episodes of emesis. No his blood sugars were going elevated. He states that he has continued to take his insulin despite decreased p.o. intake. Today he has had more emesis his blood sugars are continue to be high. He notes decreased urination. He notes muscle cramps in the legs. No fevers. No cough runny nose sore throat. He is not currently taking any other medications. He states that he was diagnosed with fatty liver was supposed to follow-up with that but has not. He does not know if that has any bearing on today's visit. No diarrhea. PFSH PFSH Medical History Anxiety Depression H/O medication noncompliance History of cigarette smoking MCAD deficiency Nicotine vapor product user Type 1 diabetes Home Medications insulin glargine 100 unit/mL (3 mL) subcutaneous pen (Lantus Solostar U-100 Insulin) 22 unit subcut .HS DM 07/02/22 [History Last Taken 07/02/22] dextroamphetamine-amphetamine ER 30 mg 24hr capsule,extend release 30 mg PO DAILY ASK PCP 08/16/23 [History Last Taken Unknown] insulin aspart U-100 100 unit/mL (3 mL) subcutaneous pen (Novolog FlexPen U-100 Insulin aspart) 15 unit (0.15 mL) subcut .BEFORE MEALS DM #15 mL 08/17/23 [Rx Last Taken Unknown] blood-glucose sensor (FreeStyle [place] 3 Sensor device) #2 ea 08/25/23 [Rx Last Taken Unknown] Allergy/AdvReac Type Severity Reaction Status Date / Time No Known Allergies Allergy Verified 10/23/23 23:17 Family History Mother Anxiety and depression Father Anxiety and depression Surgical History S/P left inguinal hernia repair Social History household members: other details: Currently living with his father with also financee, reporting moving alot. Smoking Status: Current every day smoker tobacco type: e-cigarettes Smokeless tobacco user: other Electronic Cigarette Use: with nicotine how long ago did patient quit smoking: Used cigarette tobacco 14-16 yrs old, 1/2 ppd until transitioned to vaping. 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 ROS ROS ED Constitutional Constitutional ED: Reports chills; Denies fever(s) or weight loss Eyes Eyes: Denies change in vision or diplopia ENT ENT ED: Denies ear pain, rhinorrhea or sore throat Cardiovascular Cardiovascular: Denies chest pain, orthopnea, palpitations or racing heartbeat Respiratory/Chest Respiratory/Chest: Denies cough, dyspnea or orthopnea Gastrointestinal Gastrointestinal: Reports nausea and vomiting; Denies abdominal pain or diarrhea Genitourinary Genitourinary ED: Reports other Details: Decreased urination ; Denies dysuria, hematuria or urinary frequency Musculoskeletal Musculoskeletal: Reports other Details: Leg cramps ; Denies arthralgias or myalgias Integumentary Denies abscess or rash Neurologic Neurologic: Denies headache(s) or weakness Psychiatric Psychiatric: Denies anxiety, depression, suicidal ideation or suicidal thoughts Endocrine Endocrinology: Denies polydipsia, polyphagia or polyuria Allergic/Immunologic Allergic/Immunologic ED: Denies mouth swelling, tongue swelling or urticaria EXAM Physical Exam Const Vital Signs: 10/23/23 23:14 10/24/23 00:01 10/24/23 00:46 Temperature 98.3 F Temperature Source Temporal Pulse Rate 111 H 93 Respiratory Rate 18 15 Respiratory Effort Non-Labored Respiratory Pattern Normal Blood Pressure 125/93 H 128/78 H Blood Pressure Mean 103 94 Pulse Ox 99 100 Oxygen Delivery Method Room Air Room Air Positive well nourished and well developed General Appearance ED: well developed HEENT Reports normocephalic, head/scalp atraumatic and moist mucous membranes Eyes PERRL and EOMs intact bilaterally Neck no lymphadenopathy, supple and no JVD Resp normal respiratory effort and clear to auscultation bilaterally Cardio regular rate, regular rhythm and no murmurs Rate: tachycardic GI normal to inspection, nondistended, normoactive bowel sounds and non-tender Palpation: soft Back/Spine no CVA tenderness and normal ROM Extremity normal to inspection General Extremety ED: Negative for edema General Extremity: Negative for edema Neuro oriented x3 and CN's II-XII intact bilaterally Sensorium / Orientation: alert Motor Exam: strength 5/5 throughout Psych mental status grossly normal Mood & Affect: Negative for depressed or tearful Skin no rashes or lesions noted and no wounds MDM MDM MDM Narrative Medical decision making narrative: IV was established and patient began receiving 2 L normal saline. CO2 of 21 anion gap of 19. Moderate acetone noted. Urinalysis with no overt infection. White count 9.8. Does have elevation in his transaminases and alk phos. He has had elevations in the past and as mentioned in the history was diagnosed with fatty liver disease and is in need of follow-up. Lipase is at 15. VB G does not demonstrate acidosis. I will speak with with the hospitalist regarding admission and insulin therapy. History & Record Review Discussion w/independent historian: Patient Additional record(s) reviewed:: Prior inpatient record, Prior ED visit and Prior labs Lab Data Attestation: I reviewed the patient's lab results. Labs: Laboratory Results - last 24 hr 10/23/23 10/23/23 10/23/23 23:34 23:42 23:48 WBC 9.8 RBC 5.38 Hgb 16.0 Hct 48.8 MCV 90.7 MCH 29.7 MCHC 32.8 RDW Std Deviation 42.3 RDW Coeff of Violeta 12.8 Plt Count 417 MPV 8.8 Immature Gran % (Auto) 0.400 Neut % (Auto) 75.5 H Lymph % (Auto) 18.2 L [place] % (Auto) 5.2 Eos % (Auto) 0.3 Baso % (Auto) 0.4 Absolute Neuts (auto) 7.4 Absolute Lymphs (auto) 1.78 Nucleated RBC % 0 Sodium 131 L Potassium 4.4 Chloride 91 L Carbon Dioxide 21.0 Anion Gap 19 H BUN 11 Creatinine 1.36 H Estim Creat Clear Calc 68.48 Est GFR (MDRD) Af Amer 85 Est GFR (MDRD) Non-Af 70 BUN/Creatinine Ratio 8.1 L Glucose 254 H Calcium 9.8 Total Bilirubin 1.10 H Direct Bilirubin 0.26 AST 214 H ALT 272 H Alkaline Phosphatase 143 H Total Protein 8.9 H Albumin 4.6 Globulin 4.3 H Lipase 15 Urine Color Urine Clarity Urine pH Ur Specific [place] Urine Protein Urine Glucose (UA) Urine Ketones Urine Occult Blood Urine Nitrite Urine Bilirubin Urine Urobilinogen Ur Leukocyte Esterase Urine RBC Urine WBC Ur Squamous Epith Cells Urine Bacteria Urine Mucus Acetone Level MODERATE H POC Glucose 225 H 10/23/23 23:50 WBC RBC Hgb Hct MCV MCH MCHC RDW Std Deviation RDW Coeff of Violeta Plt Count MPV Immature Gran % (Auto) Neut % (Auto) Lymph % (Auto) [place] % (Auto) Eos % (Auto) Baso % (Auto) Absolute Neuts (auto) Absolute Lymphs (auto) Nucleated RBC % Sodium Potassium Chloride Carbon Dioxide Anion Gap BUN Creatinine Estim Creat Clear Calc Est GFR (MDRD) Af Amer Est GFR (MDRD) Non-Af BUN/Creatinine Ratio Glucose Calcium Total Bilirubin Direct Bilirubin AST ALT Alkaline Phosphatase Total Protein Albumin Globulin Lipase Urine Color Yellow Urine Clarity Clear Urine pH 5.0 Ur Specific [place] 1.020 Urine Protein 30 H Urine Glucose (UA) 1000 H Urine Ketones 150 A* Urine Occult Blood Negative Urine Nitrite Negative Urine Bilirubin Negative Urine Urobilinogen Normal Ur Leukocyte Esterase Negative Urine RBC 0 SEEN Urine WBC 0 SEEN Ur Squamous Epith Cells 0 SEEN Urine Bacteria 0 SEEN Urine Mucus 0 SEEN Acetone Level POC Glucose ABG Data ABG results: ABG 10/23/23 23:54 Specimen Type INESSA Sample Site Not entered VBG pH 7.41 VBG pO2 37 VBG HCO3 19 L VBG Total CO2 20 L VBG O2 Sat (Calc) 72 H VBG Base Excess -6 L POC Mix VBG pCO2 Pt Tmp 30.3 L O2 Delivery Device Room Air Discharge Plan Triage Chief Complaint: Hyperglycemia ED Provider: René Pena Dx/Rx/DC Orders Clinical Impression: DKA (diabetic ketoacidosis), Type 1 diabetes, Elevated liver enzymes Prescriptions: No Action (DME) FreeStyle [place] 3 Sensor Device See Rx Instructions .Route Qty: 2 5RF Rx Instructions: 1 sensor 14 days insulin glargine [Lantus Solostar U-100 Insulin] 100 unit/mL (3 mL) insulin pe n 22 unit SUBCUT .HS dextroamphetamine-amphetamine 30 mg capsule,extended release 24hr 30 mg PO DAILY Patient Comments: take 1 capsule by mouth once daily insulin aspart U-100 [Novolog FlexPen U-100 Insulin] 100 unit/mL (3 mL) Insulin Pen 15 unit SUBCUT .BEFORE MEALS Qty: 15 0RF Primary Care Provider: Chaya Varghese NP Referrals: Chaya Varghese NP, [employer]-[facility] [Primary Care Provider] - Disposition Disposition: Acute Care [facility]
[2023-10-23] MEDS: 0.9% Normal Saline (1000mL) 1,000 ML 1000 ML IV (23:41)
[2023-10-23 23:51] LABS: Bedside Glucose 225 mg/dL (74-106)
[2023-10-23 23:57] LABS: Bacteria 0 SEEN /hpf (None Seen); Mucous, Urine 0 SEEN /hpf (<or=2+); Red Blood Cells-Urine 0 SEEN /hpf (0-5); Squamous Epithelial Cells - UA 0 SEEN /hpf (0-5); White Blood Cells 0 SEEN /hpf (0-5)
[2023-10-23 23:57] LABS: Blood Gas Specimen Type VEN; O2 Delivery Device Room Air; SITE Not entered; VBG BASE EXCESS -6 mmol/L (-1.0-3.5); VBG Bicarbonate 19 mmol/L (22-26); VBG PO2 37 mmHg (25-40); VBG SO2 72 % (50-70); VBG TCO2 20 mmol/L (23-33); VBG pCO2 30.3 mmHg (41-51); VBG pH 7.41 (7.32-7.42)
[2023-10-23 23:58] LABS: Absolute Lymphocyte Count 1.78 X10^3/uL (0.83-4.51); Absolute Neutrophil Count 7.4 X10^3/uL (2.0-7.7); Basophil# 0.04 X10^3/uL; Basophil% 0.4 % (0-1); Eosinophil# 0.03 X10^3/uL; Eosinophils% 0.3 % (0-5); Hematocrit 48.8 % (40-54); Lymphocyte # 1.78 X10^3/ul (0.83-4.51); Lymphocyte % 18.2 % (19-41); Mean Corp Hgb Conc 32.8 g/dL (32-36); Mean Corpuscular Hgb 29.7 pg (27.0-32.0); Mean Corpuscular Volume 90.7 fL (80-94); Mean Platelet Vol. 8.8 fl (6.2-12.0); Monocyte# 0.51 X10^3/uL; Monocyte% 5.2 % (0-10); NRBC Flagged by Analyzer 0 % (0-5); Neutrophil # 7.38 X10^3/uL (2.7-7.7); Neutrophil % 75.5 % (47-70); Platelet Count 417 K/mm3 (150-450); RBC Distribution Width CV 12.8 % (11.6-14.6); RBC Distribution Width SD 42.3 fl (35.1-43.9); Red Blood Count 5.38 M/mm3 (4.6-6.2); White Blood Count 9.8 K/mm3 (4.4-11.0)
[2023-10-24] VITALS (12 sets, daily range): BP systolic 108–136; BP diastolic 57–95; PULSE 88–110; RESP 11–22; TEMP 36.4–36.6; O2SAT 97–100; BMI 19.0
[2023-10-24 00:02] LABS: Color, Urine Yellow (Yellow); Glucose, Dipstick 1000 mg/dl (Normal); Leukocyte Esterase-Dipstick Negative /ul (Negative); Nitrite-Dipstick Negative (Negative); Occult Blood-Urine Negative /ul (Negative); Protein-Dipstick 30 mg/dl (Negative); Urine Bilirubin Dipstick Negative (Negative); Urine Clarity Clear (Clear); Urine Urobilinogen Normal (Normal)
[2023-10-24 00:15] LABS: Ketone-Dipstick 150 mg/dl (Negative)
[2023-10-24 00:18] LABS: AST(SGOT) 214 U/L (15-37); Alanine Aminotransfer ALT/SGPT 272 U/L (16-61); Albumin, Serum 4.6 g/dL (3.2-5.0); Alkaline Phosphatase 143 U/L (45-117); Anion Gap 19 (5-15); BUN 11 mg/dL (7-18); BUN/Creat Ratio 8.1 RATIO (10-20); Bilirubin, Direct 0.26 mg/dL (0.00-0.30); Calcium,Total 9.8 mg/dL (8.5-10.1); Chloride 91 mmol/L (98-107); Creatinine, Serum 1.36 mg/dL (0.70-1.30); EST Glomerular Filtration Rate 70 mL/min (>60); Est Glom Filt Rate - Afr Amer 85 mL/min (>60); Estimated Creatinine Clearance 68.48 ml/min; Globulin 4.3 g/dL (2.2-4.2); Glucose 254 mg/dL (74-106); Lipase 15 U/L (13-75); Potassium 4.4 mmol/L (3.5-5.1); Protein, Total 8.9 g/dL (6.4-8.2); Sodium Level 131 mmol/L (136-145)
[2023-10-24] MEDS: 0.9% Normal Saline (1000mL) 1,000 ML 1000 ML IV (00:41)
--- NOTE | 2023-10-24 01:08 | HP.PCM.HOS_ITS ---
HPI - General General Date of Admission: 10/24/23 Date of Service: 10/24/23 Chief Complaint: Nausea and vomiting HPI Narrative MACHELLE CALIX, is a 22 M who presents with intractable nausea and vomiting. Symptoms began on the third and persisted. Presented to the emergency room where his blood sugar was only 254 but his anion gap was positive, urinalysis showed 1000 mg/dL glucose, positive urine ketones and toxicology positive for acetone. Patient was in diabetic ketoacidosis. Patient had similar events this past fall but when he felt sick he did not take his insulin. This time he states he has been taking his insulin as instructed. When asked to what his blood sugars were normally running he said that they are good. [facility] Medical History Anxiety Depression H/O medication noncompliance History of cigarette smoking MCAD deficiency Nicotine vapor product user Type 1 diabetes Home Medications insulin glargine 100 unit/mL (3 mL) subcutaneous pen (Lantus Solostar U-100 Insulin) 22 unit subcut .HS DM 07/02/22 [History Last Taken 07/02/22] dextroamphetamine-amphetamine ER 30 mg 24hr capsule,extend release 30 mg PO DAILY ASK PCP 08/16/23 [History Last Taken Unknown] insulin aspart U-100 100 unit/mL (3 mL) subcutaneous pen (Novolog FlexPen U-100 Insulin aspart) 15 unit (0.15 mL) subcut .BEFORE MEALS DM #15 mL 08/17/23 [Rx Last Taken Unknown] blood-glucose sensor (FreeStyle [place] 3 Sensor device) #2 ea 08/25/23 [Rx Last Taken Unknown] Allergy/AdvReac Type Severity Reaction Status Date / Time No Known Allergies Allergy Verified 10/23/23 23:17 Family History Mother Anxiety and depression Father Anxiety and depression Surgical History S/P left inguinal hernia repair Social History household members: other details: Currently living with his father with also financee, reporting moving alot. Smoking Status: Current every day smoker tobacco type: e-cigarettes Smokeless tobacco user: other Electronic Cigarette Use: with nicotine how long ago did patient quit smoking: Used cigarette tobacco 14-16 yrs old, 1/2 ppd until transitioned to vaping. 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 ROS ROS Narrative All review of systems were negative except as mentioned above in the history of present illness and the other review of systems. Vital Signs Vital Signs Vital Signs: 10/23/23 23:14 10/24/23 00:01 10/24/23 00:46 Temperature 36.8 C Temperature Source Temporal Pulse Rate 111 H 93 Respiratory Rate 18 15 Respiratory Effort Non-Labored Respiratory Pattern Normal Blood Pressure 125/93 H 128/78 H Blood Pressure Mean 103 94 Pulse Ox 99 100 Oxygen Delivery Method Room Air Room Air 10/24/23 01:01 Temperature 36.6 C Temperature Source Pulse Rate 103 H Respiratory Rate 13 Respiratory Effort Respiratory Pattern Blood Pressure 126/81 H Blood Pressure Mean 96 Pulse Ox 99 Oxygen Delivery Method Weight Weight: 55.877 kg Body Mass Index (BMI) 18.7 Physical Exam Narrative - Physical Exam General: Alert, Oriented x3, Cooperative HEENT: Atraumatic, PERRLA, EOMI, Normocephalic Oral: Moist Mucosa, No Gingival or Mucosal Lesions/ Ulcerations Neck: Supple, No JVD, Negative Carotid Bruits Lungs: Clear to auscultation, Normal air movement Cardiovascular: Regular rate, Normal S1, Normal S2, No murmurs Abdomen: Bowel Sounds Present, Soft, slight umbilical tender, Non-Distended, No Hepato-splenomegaly Extremities: No clubbing, No cyanosis, No edema, Capillary Refill Less than 3 Seconds Skin: No rashes, No breakdown Musculoskeletal: No Tenderness to Palpation of Joints or Extremities Neurological: Neuro grossly intact Psych/Mental Status: Normal Affect, Appropriate Results Lab / Micro Data Attestation: I reviewed the patient's lab results. 10/23/23 23:48 10/23/23 23:48 Labs: Laboratory Results - last 24 hr 10/23/23 23:34: POC Glucose 225 H 10/23/23 23:42: Acetone Level MODERATE H 10/23/23 23:48: WBC 9.8, RBC 5.38, Hgb 16.0, Hct 48.8, MCV 90.7, MCH 29.7, MCHC 32.8, RDW Std Deviation 42.3, RDW Coeff of Violeta 12.8, Plt Count 417, MPV 8.8, Immature Gran % (Auto) 0.400, Neut % (Auto) 75.5 H, Lymph % (Auto) 18.2 L, [place] % (Auto) 5.2, Eos % (Auto) 0.3, Baso % (Auto) 0.4, Absolute Neuts (auto) 7.4, Absolute Lymphs (auto) 1.78, Nucleated RBC % 0, Sodium 131 L, Potassium 4.4, Chloride 91 L, Carbon Dioxide 21.0, Anion Gap 19 H, BUN 11, Creatinine 1.36 H, Estim Creat Clear Calc 68.48, Est GFR (MDRD) Af Amer 85, Est GFR (MDRD) Non-Af 70, BUN/Creatinine Ratio 8.1 L, Glucose 254 H, Calcium 9.8, Total Bilirubin 1.10 H, Direct Bilirubin 0.26, AST 214 H, ALT 272 H, Alkaline Phosphatase 143 H, Total Protein 8.9 H, Albumin 4.6, Globulin 4.3 H, Lipase 15 10/23/23 23:50: Urine Color Yellow, Urine Clarity Clear, Urine pH 5.0, Ur Specific [place] 1.020, Urine Protein 30 H, Urine Glucose (UA) 1000 H, Urine Ketones 150 A*, Urine Occult Blood Negative, Urine Nitrite Negative, Urine Bilirubin Negative, Urine Urobilinogen Normal, Ur Leukocyte Esterase Negative, Urine RBC 0 SEEN, Urine WBC 0 SEEN, Ur Squamous Epith Cells 0 SEEN, Urine Bacteria 0 SEEN, Urine Mucus 0 SEEN Micro: Microbiology 10/23/23 23:40 Nasal Secretion SARS-CoV-2 Antigen (Rapid) - Final ABG Data ABG results: ABG 10/23/23 23:54 Specimen Type INESSA Sample Site Not entered VBG pH 7.41 VBG pO2 37 VBG HCO3 19 L VBG Total CO2 20 L VBG O2 Sat (Calc) 72 H VBG Base Excess -6 L POC Mix VBG pCO2 Pt Tmp 30.3 L O2 Delivery Device Room Air Assessment & Plan Assessment/Plan (1) DKA (diabetic ketoacidosis): PLAN: Blood sugar is not that high but he does have positive ketones in his urine and does have positive moderate acetones. Patient has been started on insulin drip in the emergency room we will continue that on the floor. Additionally with his blood sugars not being terribly high, he is also been started on D5 infusion. Will continue with additional IV fluids and monitor. I do not dissipate the patient required insulin drip very long. Once patient is out of DKA then we can resume his prandial and insulin glargine. PLAN: Plan History of fatty liver. Patient's LFTs are abnormal. These been abnormal at least since 2021. Patient is going to have another outpatient ultrasound. It was noted that he had fatty liver back in 2021. Patient would benefit from seeing gastroenterology as outpatient. VTE prophylaxis: Lovenox weight heparin. Disposition: Dissipate patient be able to be discharged possibly today. However the patient, with DKA, absolutely needs to be hospitalized and be brought under admission status is without intensive therapy he is at risk for severe morbidity and mortality. Charges/Coding Visit Charges Inpatient E&M: 20509 Init Hosp L3
[2023-10-24] MEDS: Dextrose 5%/0.9% NaCl 1,000 ML 125 ML IV (01:09)
[2023-10-24] MEDS: Insulin Lispro 100 UNIT in 0.9% Normal Saline (100mL Bag) 99 ML 5.6 UNIT CONT INF (01:14)
[2023-10-24 01:15] LABS: Bedside Glucose 104 mg/dL (74-106)
[2023-10-24] MEDS: Dextrose 50%-Water 25 GM/50 ML DISP.SYRIN IV (04:02)
[2023-10-24] MEDS: 0.9% Saline Lock 10 ML Syringe IV ×2 (04:03→06:39)
[2023-10-24 05:28] LABS: Anion Gap 11 (5-15); BUN 8 mg/dL (7-18); BUN/Creat Ratio 9.1 RATIO (10-20); Calcium,Total 8.3 mg/dL (8.5-10.1); Chloride 105 mmol/L (98-107); Creatinine, Serum 0.88 mg/dL (0.70-1.30); EST Glomerular Filtration Rate 117 mL/min (>60); Est Glom Filt Rate - Afr Amer 142 mL/min (>60); Estimated Creatinine Clearance 107.77 ml/min; Glucose 66 mg/dL (74-106); Potassium 3.2 mmol/L (3.5-5.1); Sodium Level 139 mmol/L (136-145)
--- NOTE | 2023-10-24 05:50 | PCM.HOSP.N ---
Hospitalist Note Gap is subsequently closed. Patient's blood sugars have been low and has been on D5. I suspect the patient did not really have severe DKA because he was actually taking his insulin in the midst of all this. Will resume glargine as well as prandial insulin and advance diet. Continue with the D5 drip for few more hours and observe.
[2023-10-24] MEDS: Insulin Glargine-YFGN 100 UNIT/ML Pen 22 UNIT SC (06:34)
[2023-10-24 06:53] LABS: Bedside Glucose 95 mg/dL (74-106)
[2023-10-24 06:53] LABS: Bedside Glucose 175 mg/dL (74-106)
[2023-10-24 06:53] LABS: Bedside Glucose 54 mg/dL (74-106)
[2023-10-24 06:53] LABS: Bedside Glucose 136 mg/dL (74-106)
[2023-10-24 06:53] LABS: Bedside Glucose 102 mg/dL (74-106)
[2023-10-24 06:58] LABS: Bedside Glucose 293 mg/dL (74-106)
--- NOTE | 2023-10-24 06:58 | PCM.HOSP.N ---
Hospitalist Note Patient is a 22-year-old male who presented with intractable nausea and vomiting and a known history of type 1 diabetes. Upon presentation he was found to have an elevated blood sugar 254 and an elevated anion gap. Urinalysis showed thousand glucose and was positive for ketones. Serum was also positive for acetone. He was found to be in DKA. Patient indicates he has been taking his insulin as instructed but is unable to tell a specific blood sugars on presentation and just reported that they were good. He was admitted to the ICU and placed on insulin drip, IV fluids, and aggressive replacement of electrolytes. At about 6:00 this morning his gap was closed and his subcu insulin was started as well as his prandial insulin and his diet was advanced.
--- NOTE | 2023-10-24 09:18 | DS.PCM_ITS ---
Providers Date of Admission: 10/24/23 Date of Discharge: 10/24/23 Primary Care Physician: TERRELL Cortez Reason For Visit: DKA Diagnosis Discharge Diagnosis (1) DKA (diabetic ketoacidosis): Status: Acute Code(s): E11.10 - Type 2 diabetes mellitus with ketoacidosis without coma Medications at Discharge Home Medications blood-glucose sensor (FreeStyle [place] 3 Sensor device) #2 ea 08/25/23 insulin aspart U-100 100 unit/mL (3 mL) subcutaneous pen (Novolog FlexPen U-100 Insulin aspart) 8 unit subcut .BEFORE MEALS DM 10/24/23 insulin glargine 100 unit/mL (3 mL) subcutaneous pen (Lantus Solostar U-100 Insulin) 18 unit (0.18 mL) subcut .HS DM #15 mL 10/24/23 Hospital Course Operations None Summary of Care Provided Hospital Course: Mr. Lo is a 22-year-old male who presented to the emergency department at [facility] late last evening on 10/23/2023 complaining of intractable nausea and vomiting. He has a known history of type 1 diabetes. Up on presentation, he was found to have an elevated blood sugar 254 and an elevated anion gap. Urinalysis showed thousand glucose and was positive for ketones. Serum was also positive for acetone. He was found to be in DKA, however suspect it was mild DKA as he resolved quite quickly. Patient indicated on presentation that he had been taking his insulin as instructed but was unable to tell a specific blood sugars on presentation and just reported that they were good. He had a recent visit with endocrinology on 08/25/2023 at which time his basal insulin was reduced from 22 units to 18 units and his prandial insulin once maintained at 8 units twice daily. He was admitted to the ICU and placed on insulin drip, IV fluids, and aggressive replacement of electrolytes. At about 6:00 a.m. on 10/24/2023 his gap was closed and his subcu insulin was started as well as his prandial insulin and his diet was advanced. The patient was feeling much improved and was hungry. We allowed him to eat and gave him subcu insulin and discontinued DKA protocol. He tolerated all of this well and we were able to discharge him home in stable condition. He does have chronically elevated liver enzymes for which a ultrasound of his abdomen was performed on 2021 and showed hepatomegaly with fatty liver. Given these findings, it may be metabolic however I did refer him to see Dr. Calderón from gastroenterology and asked him to call to make an appointment to be seen within the next 3 to 4 months. I suggest that he call either later today or on Tuesday to make this appointment. 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 I have also asked him to follow-up with his primary care physician within the next 2-4. Patient was able to be discharged home in stable condition on 10/24/2023. He denied the need for any prescriptions for his insulin. Patient improved more quickly than anticipated and I suspect his DKA on presentation was fairly mild as his anion gap was only 19. Discharge diagnoses: Diabetic ketoacidosis Hypokalemia-treated -MAGALY-resolved DM-1 Transaminitis with hepatosteatosis noted on ultrasound from 2021 ADHD Nicotine abuse History of substance abuse Physical Exam Const alert, oriented x3, no apparent distress and no limitations Constitutional Narrative: Thin, young, white male, sitting up in bed ordering breakfast, nursing at bed side, patient appears comfortable nontoxic General Appearance: cooperative, comfortable, well kempt and well developed Orientation / Consciousness: awake, oriented to person, oriented to place and oriented to time Exam Limitations: no limitations Nutritional Appearance: thin HEENT normocephalic, head/scalp atraumatic, hearing grossly normal bilaterally and moist oral mucous membranes HEENT Narrative: Mallampati 1, no thrush Eyes PERRL, EOMs intact bilaterally and conjunctivae normal Neck no lymphadenopathy and supple Neck Narrative: Trachea midline, no thyroid enlargement Resp normal respiratory effort, no retractions, no use of accessory muscles and clear to auscultation bilaterally Auscultation: Negative for rales, rhonchi or wheezes Cardio regular rate, regular rhythm, S1 normal heart sound, S2 normal heart sound, no murmurs, no rub, no gallops and no clicks GI normal to inspection, nondistended, normoactive bowel sounds, soft to palpation and non-tender Extremity no clubbing, cyanosis or edema Extremity Narrative: Pedal pulses are 2+ Skin no rashes or lesions noted, no wounds, skin turgor normal and no jaundice Neuro oriented x3, CN's II-XII intact bilaterally, moves all extremities and no focal motor deficits Speech: speech normal Psych affect normal Psych Narrative: Very pleasant, eye contact is good, patient interacts appropriately Weight / BMI Weight Weight: 56.9 kg Body Mass Index (BMI) 19.0 ABG / Lab / Microbiology Data 10/23/23 23:48 10/24/23 03:46 Laboratory: Laboratory Results - last 24 hr 10/23/23 23:34: POC Glucose 225 H 10/23/23 23:42: Acetone Level MODERATE H 10/23/23 23:48: WBC 9.8, RBC 5.38, Hgb 16.0, Hct 48.8, MCV 90.7, MCH 29.7, MCHC 32.8, RDW Std Deviation 42.3, RDW Coeff of Violeta 12.8, Plt Count 417, MPV 8.8, Immature Gran % (Auto) 0.400, Neut % (Auto) 75.5 H, Lymph % (Auto) 18.2 L, Nance % (Auto) 5.2, Eos % (Auto) 0.3, Baso % (Auto) 0.4, Absolute Neuts (auto) 7.4, Absolute Lymphs (auto) 1.78, Nucleated RBC % 0, Sodium 131 L, Potassium 4.4, Chloride 91 L, Carbon Dioxide 21.0, Anion Gap 19 H, BUN 11, Creatinine 1.36 H, Estim Creat Clear Calc 68.48, Est GFR (MDRD) Af Amer 85, Est GFR (MDRD) Non-Af 70, BUN/Creatinine Ratio 8.1 L, Glucose 254 H, Calcium 9.8, Total Bilirubin 1.10 H, Direct Bilirubin 0.26, AST 214 H, ALT 272 H, Alkaline Phosphatase 143 H, Total Protein 8.9 H, Albumin 4.6, Globulin 4.3 H, Lipase 15 10/23/23 23:50: Urine Color Yellow, Urine Clarity Clear, Urine pH 5.0, Ur Specific [place] 1.020, Urine Protein 30 H, Urine Glucose (UA) 1000 H, Urine Ketones 150 A*, Urine Occult Blood Negative, Urine Nitrite Negative, Urine Bilirubin Negative, Urine Urobilinogen Normal, Ur Leukocyte Esterase Negative, Urine RBC 0 SEEN, Urine WBC 0 SEEN, Ur Squamous Epith Cells 0 SEEN, Urine Bacteria 0 SEEN, Urine Mucus 0 SEEN 10/24/23 00:56: POC Glucose 104 10/24/23 02:05: POC Glucose 102 10/24/23 02:58: POC Glucose 95 10/24/23 03:46: Sodium 139, Potassium 3.2 L, Chloride 105, Carbon Dioxide 23.0, Anion Gap 11, BUN 8, Creatinine 0.88, Estim Creat Clear Calc 107.77, Est GFR (MDRD) Af Amer 142, Est GFR (MDRD) Non-Af 117, BUN/Creatinine Ratio 9.1 L, Glucose 66 L, Calcium 8.3 L 10/24/23 03:54: POC Glucose 54 L 10/24/23 04:20: POC Glucose 136 H 10/24/23 05:39: POC Glucose 175 H 10/24/23 06:37: POC Glucose 293 H Microbiology: Microbiology 10/23/23 23:40 Nasal Secretion SARS-CoV-2 Antigen (Rapid) - Final ABG: ABG 10/23/23 23:54 Specimen Type INESSA Sample Site Not entered VBG pH 7.41 VBG pO2 37 VBG HCO3 19 L VBG Total CO2 20 L VBG O2 Sat (Calc) 72 H VBG Base Excess -6 L POC Mix VBG pCO2 Pt Tmp 30.3 L O2 Delivery Device Room Air D/C Instructions Discharge Diet: 2400 Calorie Control Diet Discharge Activity: Return to Normal Activity Return to work on: 10/25/23 Meaningful Use Info Meaningful Use Diagnoses (Choose all that apply): None applicable Discharge Plan Admission Admit Date/Time: 10/24/23 00:52 Primary Reason for Your Visit: Diabetic ketoacidosis Attending Provider: Rosemarie Anders Primary Care Provider: Chaya Varghese ASSOCIATE FINANCIAL ADVISOR Consulting Providers: Maikol Serna Discharge Orders/Prescriptions Prescriptions: Continued (DME) FreeStyle [place] 3 Sensor Device See Rx Instructions .Route Qty: 2 5RF Rx Instructions: 1 sensor 14 days insulin aspart U-100 [Novolog FlexPen U-100 Insulin] 100 unit/mL (3 mL) Insulin Pen 8 unit SUBCUT .BEFORE MEALS Patient Comments: pt reports he takes 8-13 units three times a day. Changed insulin glargine [Lantus Solostar U-100 Insulin] 100 unit/mL (3 mL) insulin pen 18 unit SUBCUT .HS Qty: 15 0RF Referrals / Follow Up: Sesar Calderón DO [Med Staff - Active Staff] - Within 3 Months (Call either later today or tomorrow to set up an appointment to be seen within the next 3 to 4 months for elevated liver enzymes) Kyle Peck MD [Med Staff - Courtesy Staff] - Within 1 Month (Hospital follow-up for DKA) Chaya Varghese ASSOCIATE FINANCIAL ADVISOR, ASSOCIATE FINANCIAL ADVISOR-C [Primary Care Provider] - Within 1 Month Disposition Disposition (needs filled in before D/C Order can be placed): Home, Self Care Charges/Coding Visit Charges Inpatient E&M: 26934 Disch Hosp >30min
[2023-10-24] MEDS: Potassium Chloride Oral Tablet 20 MEQ 40 MEQ PO (09:59)
[2023-10-24] MEDS: Insulin Lispro 100 UNIT/ML INSULN.PEN 8 UNIT SC ×2 (10:02→12:53)
[2023-10-24 10:18] LABS: Bedside Glucose 158 mg/dL (74-106)
[2023-10-24 10:19] LABS: Hemoglobin A1c 8.9 % (3.8-5.6)
--- NOTE | 2023-10-24 11:15 | CASEMGMT ---
RN?CM?BREAK UP WORKER?CM?to room to meet with patient for initial transition planning/care coordination?assessment.?RN?CM?introduced self and role at [facility].? Pt voices understanding and consents to?assessment?at this time.? Pt resting in bed in no distress at this time.? Pt is A/O at this time and answers all questions appropriately.?? Care providers, pharmacy, and demographics verified/updated at this time. PCP: CARISSA Varghese Specialists: Dr Peck-endocrinology Preferred Pharmacy:[facility] Insurance: [place] through his mom's job. [employer] through his dad's job. [place] of Disability Prescription Benefit:?Yes LNOK: Mother and father are both living. Mom lives near [facility] and father lives in [place]. Layla, sig other. Living Arrangements: Lives w/[facility] and his 91-pr[address]-mbd dtr lives w/[facility]. They live in a 2nd-story apt w/8-10 steps to enter. Pt states he is independent and manages his own medications. Transportation: family. He states he does not have a ride home today. Call placed to [facility] call center and pt scheduled a ride home @ 2:30 PM. RN, Mavis, aware. DME:States has the following DME:?functioning glucometer w/supplies. He states he checks his BS's 1-3 x's a day and states, I don't check it as often as I should, but I'm trying to do better. Pt states he has a CGM system also, but he does not use it d/t it is painful and he does not like it. He states Dr Peck's office is working on getting him a different kind to see if it is more comfortable. He states he has all medications, insulins, and supplies needed. Pt states no need for further DME at this time.? HHC: No hx of [facility]. Discussed CCN and pt is agreeable. Order placed. Call placed to Isauro @ [facility] and she was made aware of referral. Pt wishes to return home and states has no concerns with going home. Pt voices no further concerns/needs at this time.? Advised pt to ask for?CM?if any further questions/concerns/needs arise.? Voices understanding. PLAN:??Home w/CCN referral. DGialuis BSN?RN?CM
[2023-10-24 13:42] LABS: Bedside Glucose 153 mg/dL (74-106)
--- NOTE | 2023-11-01 10:43 | CCN.REFER ---
UNABLE TO REACH PATIENT. VM LEFT FOR PATIENT AND ER CONTAC W/ NO RETURN CALLS. WILL CONTINUE TO ATTEMPT TO REACH.
--- NOTE | 2023-11-07 10:53 | CCN.REFER ---
NOT RETURNING CCN CALLS AFTER MULTIPLE ATTEMPTS TO REACH PATIENT
== END 2023-10-24 14:25 | disposition home or self-care (01) | DRG 639 ==
LOC: ED 10-24 00:48 → ICU 10-24 06:50
PROVIDERS: Emergency Provider Emergency Medicine; PCP Internal Medicine; Visit Provider Internal Medicine
DX: E10.10 Type 1 diabetes mellitus with ketoacidosis without coma (principal); Z79.4 Long term (current) use of insulin; E87.6 Hypokalemia; K76.0 Fatty (change of) liver, not elsewhere classified; F17.290 Nicotine dependence, other tobacco product, uncomplicated; R74.01 Elevation of levels of liver transaminase levels; F90.9 Attention-deficit hyperactivity disorder, unspecified type
CPT/HCPCS: 80048; 80076; 81001; 82009; 82803; 82962; 83036; 83690; 85025; 87811; 96361; 96365; 96366; 97802; 99221; 99285; J7030; A4216; G0378

== ENCOUNTER 2023-11-09 17:03 | Observation (INO) | payer BC, OTHER, SELFPAY ==
[2023-11-09] VITALS (10 sets, daily range): BP systolic 115–140; BP diastolic 59–87; PULSE 79–108; RESP 12–18; TEMP 36.3–36.9; O2SAT 97–100; BMI 19.5
--- NOTE | 2023-11-09 17:14 | ED.VIS.GI ---
HPI HPI - GI History of Present Illness Chief Complaint: Nausea/Vomiting Informant: patient Abdominal Pain/Flank Pain Onset: Today Context: Gradual Onset Timing: Continuous Quality: Burning and - (Tightness) Location: Diffuse Worsened by: Nothing Relieved by: - (Drinking water) Nausea/Vomiting/Emesis GI Symptom: Positive for Nausea and Vomiting Onset: Today Quality: Positive for Nonbilious; Negative for Blood streaks, Coffee ground or Hematemesis Diarrhea/Melena/Hematochezia GI Symptom: Negative for Diarrhea, Melena or Hematochezia Associated Symptoms Associated Symptoms: Negative for Dysuria, Frequency or Hematuria Narrative Narrative: Patient presents with abdominal pain, nausea, and vomiting that began today. Patient states it began rather suddenly. Patient states it has been constant today. Patient describes the pain as tightness and burning. Patient states his pain is diffuse across his entire abdomen. Patient states he gets better when he is able to drink water. Patient admits to some nausea and vomiting. Patient denies any hematemesis or coffee-ground emesis. Patient denies any diarrhea, melena, or hematochezia. Patient denies any dysuria, frequency, or hematuria. Patient is type I diabetic and states he feels thirsty all the time. [facility] Medical History Anxiety Depression Elevated liver enzymes H/O medication noncompliance History of cigarette smoking MCAD deficiency Nicotine vapor product user Type 1 diabetes Home Medications blood-glucose sensor (FreeStyle [place] 3 Sensor device) #2 ea 08/25/23 [Rx Last Taken Unknown] insulin aspart U-100 100 unit/mL (3 mL) subcutaneous pen (Novolog FlexPen U-100 Insulin aspart) 8 unit subcut .BEFORE MEALS DM 10/24/23 [History Last Taken 11/09/23] insulin glargine 100 unit/mL (3 mL) subcutaneous pen (Lantus Solostar U-100 Insulin) 18 unit (0.18 mL) subcut .HS DM #15 mL 10/24/23 [Rx Last Taken 11/08/23] Allergy/AdvReac Type Severity Reaction Status Date / Time No Known Allergies Allergy Verified 11/09/23 17:18 Family History Mother Anxiety and depression Father Anxiety and depression Surgical History S/P left inguinal hernia repair Social History household members: other details: Currently living with his father with also financee, reporting moving alot. Smoking Status: Current every day smoker tobacco type: e-cigarettes Smokeless tobacco user: other Electronic Cigarette Use: with nicotine how long ago did patient quit smoking: Used cigarette tobacco 14-16 yrs old, 1/2 ppd until transitioned to vaping. 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 ROS ROS ED Constitutional Constitutional ED: Denies chills or fever(s) Eyes Eyes: Denies blurry vision or change in vision ENT ENT ED: Denies rhinorrhea or sore throat Cardiovascular Cardiovascular: Denies chest pain or palpitations Respiratory/Chest Respiratory/Chest: Reports cough; Denies dyspnea Gastrointestinal Gastrointestinal: Reports abdominal pain, nausea and vomiting Genitourinary Genitourinary ED: Denies dysuria or hematuria Musculoskeletal Musculoskeletal: Reports back pain and neck pain Integumentary Denies abscess or rash Neurologic Neurologic: Denies headache(s) or weakness Endocrine Endocrinology: Reports polydipsia Allergic/Immunologic Allergic/Immunologic ED: Denies mouth swelling or urticaria EXAM Physical Exam Const Vital Signs: 11/09/23 17:04 11/09/23 18:27 Temperature 97.3 F L 98.4 F Temperature Source Temporal Pulse Rate 97 89 Respiratory Rate 18 18 Blood Pressure 140/87 H 115/72 Blood Pressure Mean 104 86 Pulse Ox 97 97 Oxygen Delivery Method Room Air Positive well nourished and well developed General Appearance ED: well developed and NAD Neck supple and no JVD Resp normal respiratory effort and clear to auscultation bilaterally Cardio regular rhythm Rate: tachycardic GI non-distended Palpation: soft and tender epigastric, LLQ, RLQ, LUQ, RUQ, periumbilical and suprapubic; Negative for guarding or rebound tenderness present Neuro CN's II-XII intact bilaterally, moves all extremities and no sensory deficits noted Sensorium / Orientation: alert Motor Exam: strength 5/5 throughout Psych mental status grossly normal MDM MDM MDM Narrative Medical decision making narrative: Differential diagnosis includes DKA, hyperglycemia hyperosmolar nonketotic state, dehydration, gastroenteritis, pancreatitis, gastritis, and GERD. CBC will be obtained to assess for leukocytosis and anemia. Comprehensive metabolic profile will be obtained to assess for hepatic function, renal function, and electrolyte abnormality. Lipase will be obtained to assess for pancreatitis. Venous blood gas will be obtained to assess for pH status. Serum acetone will be obtained to assess for ketoacidosis. Urinalysis will be obtained to assess for urinary tract infection glucosuria. Lab Data Attestation: I reviewed the patient's lab results. Lab results narrative: CBC was reviewed. There is a mild leukocytosis of 11.2. The remainder is within normal limits. Comprehensive metabolic profile was reviewed. Glucose was elevated at 615. Sodium was 132 and chloride was 95. CO2 was 15 and anion gap was 22. Total bilirubin was 1.5. AST was 204, ALT was 229, and alkaline phosphatase was 136. Lipase was reviewed and was normal at 19. Serum ketones were reviewed and were moderate. Labs: Laboratory Results - last 24 hr 11/09/23 17:30 WBC 11.2 H RBC 4.93 Hgb 14.4 Hct 45.7 MCV 92.7 MCH 29.2 MCHC 31.5 L RDW Std Deviation 44.3 H RDW Coeff of Violeta 13.0 Plt Count 339 MPV 9.9 Immature Gran % (Auto) 0.600 Neut % (Auto) 82.8 H Lymph % (Auto) 10.7 L [place] % (Auto) 4.3 Eos % (Auto) 1.2 Baso % (Auto) 0.4 Absolute Neuts (auto) 9.3 H Absolute Lymphs (auto) 1.20 Nucleated RBC % 0 Sodium 132 L Potassium 4.9 Chloride 95 L Carbon Dioxide 15.0 L Anion Gap 22 H BUN 15 Creatinine 1.17 Estim Creat Clear Calc 82.91 Est GFR (MDRD) Af Amer 101 Est GFR (MDRD) Non-Af 84 BUN/Creatinine Ratio 12.8 Glucose 615 H* Calcium 9.7 Total Bilirubin 1.50 H AST 204 H ALT 229 H Alkaline Phosphatase 136 H Total Protein 7.5 Albumin 4.1 Globulin 3.4 Albumin/Globulin Ratio 1.2 Lipase 19 Acetone Level MODERATE H Treatment and Re-Evaluation :: Smoking cessation was discussed. Patient was given IV fluids. Patient was started on insulin drip. Case was discussed with the hospitalist for admission. She will admit the patient to ICU. Patient understood and was agreeable with the plan. All questions were answered. Critical Care Time Critical Care Time: Yes Critical care time (excluding procedures): 30-74 minutes (33), Including time spent:, Discussing w/Patient &/or Family/Application Development Director, Discussing w/Consultants, Arranging Admission or Transfer and Performing Direct Patient Care at Bedside Discharge Plan Dx/Rx/DC Orders Clinical Impression: Fatty liver disease, nonalcoholic, Diabetic ketoacidosis, Type 1 diabetes mellitus Disposition Disposition: Acute Care Hospital [facility]
--- OUTSIDE RECORDS SUMMARY | 2023-11-09 17:16 | XMS RPT_ITS | CCD ---
Author Name Unknown Address [address] [facility] [address] [place] [address] Organization [facility] Care Team Providers Care Cutting And Boning Supervisor Name Role Phone Tank De La Torre Unavailable Unavailable Tank De La Torre Unavailable Unavailable Emerson Rosario Unavailable Emerson Rosario Primary Care Provider Hilalry Mojica Primary Care Provider Jesse Santana Primary Care Provider [phone] JESSE SANTANA Primary Care Unavailable JUAN CARLOS AMBROCIO Attending Unavailable JUAN CARLOS AMBROCIO Admitting Unavailable ISABELLA BASURTO Attending Unavaila JESSE Ochoa Primary Care Unavailable ISABELLA BASURTO Admitting Unavaila CELE Ken Attending Unavailable HILLARY MOJICA Primary Care Unavailable HILLARY MOJICA Referring Unavailable Paulette Dawn Attending Unavailable HILLARY MOJICA Primary Care Unavailable CELE ADAMS Attending Unavailable HILLARY MOJICA Primary Care Unavailable Hillary Mojica MD Primary Care Provider [phone] Medications Current Medications Medication Drug Class(es) Dates Sig (Normalized) Sig (Original) blood glucose meter (ONETOUCH VERIO FLEX START) Misc kit (1 source) Start: 01-21-2020 blood glucose meter (ONETOUCH VERIO FLEX START) Misc kit Indications: Uncontrolled type I diabetes mellitus without complication Use as directed to test blood sugar 4-6 times daily and as needed. 2 Each 0 01/21/2020 Active Blood Glucose Monitoring Suppl (Fifty50 Glucose Meter 2.0) w/Device Kit (2 sources) Start: 01-21-2020 Blood Glucose Monitoring Suppl (Fifty50 Glucose Meter 2.0) w/Device Kit Use as directed to test blood sugar 4-6 times daily and as needed. 0 01/21/2020 Active blood-glucose meter kit (1 source) Start: 04-28-2021 blood-glucose meter kit Indications: Type 1 diabetes mellitus with hyperglycemia Use as directed. 1 Each 0 04/28/2021 Active glucagon 3 mg nasal powder (1 source) Antihypoglycemic Agent Start: 08-04-2022 Baqsimi 3 mg/actuation nasal spray (glucagon) Place 1 spray(s) in one nostril once as needed (severe hypoglycemia). 1 Each 3 08/04/2022 Active insulin glargine 100 unt/ml injectable solution (8 sources) Insulin Analog Start: 08-04-2022 inject 1 dose by subcutaneous injection once daily insulin glargine (U-100) 100 unit/mL subcutaneous solution (Lantus U-100 Insulin) Give daily subcutaneously; up to max dose 30 units 10 mL 5 08/04/2022 Active Completed/Discontinued Medications Medication Drug Class(es) Dates Sig (Normalized) Sig (Original) 250 ml glucose 50 mg/ml / sodium chloride 9 mg/ml injection (1 source) Start: 10-10-2020 End: 10-10-2020 dextrose 5 % and sodium chloride 0.9 % infusion insulin lispro 100 unt/ml injectable solution (1 source) Insulin Analog Start: 10-10-2020 End: 10-10-2020 insulin lispro (HumaLOG) injection 9 Units iopamidoL (ISOVUE-370) 76 % injection 75 mL (1 source) Start: 10-10-2020 End: 10-10-2020 iopamidoL (ISOVUE-370) 76 % injection 75 mL 2 ml ondansetron 2 mg/ml injection (2 sources) Serotonin-3 Receptor Antagonist Start: 10-10-2020 End: 10-10-2020 ondansetron (ZOFRAN) injection 4 mg Problems Active Problems Problem Classification Problem Date Documented Date Episodic/Chronic Anxiety disorders (3 sources) Generalized anxiety disorder; Translations: [Generalized anxiety disorder] Onset: 08-08-2020 08-08-2020 Chronic Diabetes mellitus without complication (8 sources) Type 1 diabetes mellitus without complication; Translations: [Type 1 diabetes mellitus] Onset: 09-20-2016 11-30-2018 Chronic Other nutritional; endocrine; and metabolic disorders (3 sources) Medium-chain acyl-coenzyme A dehydrogenase deficiency; 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] Onset: 08-08-2020 08-08-2020 Chronic Other nutritional; endocrine; and metabolic disorders (1 source) Ketosis; Translations: [Ketosis (HCC)] Episodic Unclassified (2 sources) Patient encounter status; Translations: [Well adolescent visit] Unclassified (1 source) Multiple current sexual partners; Translations: [Has multiple sexual partners] Unclassified (1 source) Type 1 diabetes mellitus without complication; Translations: [Uncontrolled type 1 diabetes mellitus without complication] Onset: 09-20-2016 06-06-2019 Past or Other Problems Problem Classification Problem Date Documented Da te Episodic/Chronic Diabetes mellitus without complication (4 sources) Insulin pump present; Translations: [Presence of insulin pump (external) (internal)] Onset: 06-06-2019 Resolved: 11-06-2020 08-08-2020 Episodic Nausea and vomiting (1 source) Nausea and vomiting; Translations: [Non-intractable vomiting with nausea, unspecified vomiting type] Episodic Residual codes; unclassified (2 sources) Altered mental status; Translations: [Altered mental status, unspecified] Onset: 10-10-2020 Resolved: 10-12-2020 10-12-2020 Episodic Results Test Name Value Interpretation Reference Range Facil ity Vital Signs Date Time Vital Sign Value Performing Clinician Facility 11-12-2020 13:54-0500 Body Temperature 98.01 [degF] [facility] 11-12-2020 13:54-0500 Pulse (Heart Rate) 68 /min [facility] 11-12-2020 13:54-0500 Respiratory Rate 18 /min [facility] 10-10-2020 12:00-0500 BP Diastolic 79 mm[Hg] [facility] 10-10-2020 12:00-0500 BP Systolic 121 mm[Hg] [facility] 10-10-2020 12:00-0500 Pulse (Heart Rate) 96 /min [facility] 10-10-2020 12:00-0500 Pulse Oximetry 100 % [facility] 10-10-2020 11:24-0500 Respiratory Rate 16 /min [facility] 10-10-2020 09:44-0500 Respiratory rate 0 /min [facility] 10-10-2020 09:26-0500 BMI (Body Mass Index) 17.9 kg/m2 [facility] 10-10-2020 09:26-0500 Body Temperature 97.7 [degF] [facility] 10-10-2020 09:26-0500 Body weight 54.97 kg [facility] 10-10-2020 09:26-0500 Height 175.3 cm [facility] 08-08-2020 10:05-0400 BMI (Body Mass Index) 17.7 kg/m2 [facility] 08-08-2020 10:05-0400 Body Temperature 97.9 [degF] [facility] 08-08-2020 10:05-0400 Body weight 51.26 kg [facility] 08-08-2020 10:05-0400 BP Diastolic 60 mm[Hg] [facility] 08-08-2020 10:05-0400 BP Systolic 104 mm[Hg] [facility] 08-08-2020 10:05-0400 Height 170.2 cm [facility] 08-08-2020 10:05-0400 Pulse (Heart Rate) 74 /min [facility] 08-08-2020 10:05-0400 Respiratory Rate 16 /min [facility] 04-19-2020 06:38-0400 BP Diastolic 61 mm[Hg[facility] 06:38-0400 BP Systolic 118 mm[Hg] [facility] 04-19-2020 06:38-0400 Pulse (Heart Rate) 74 /min [facility] 04-19-2020 06:38-0400 Pulse Oximetry 100 % [facility] 04-19-2020 06:38-0400 Respiratory Rate 16 /min [facility] 04-19-2020 05:10-0400 Respiratory rate 0 /min [facility] 04-19-2020 04:58-0400 BMI (Body Mass Index) 18.55 kg/m2 Isabella Jeff Iniguez [facility] 04-19-2020 04:58-0400 Body Temperature 98.71 [degF] Isabella Basurto [facility] 04-19-2020 04:58-0400 Body weight 55.34 kg Isabella Basurto [facility] 04-19-2020 04:58-0400 Height 172.7 cm Isabella Basurto [facility] Encounters Encounter Date Encounter Type Care Provider Facility Start: 02-08-2023 Telephone encounter Ethel Tran RN [facility] Procedures Date Procedure Procedure Detail Performing Clinician Start: 10-10-2020 Glucose [Mass/volume ] in Blood [facility] Start: 10-10-2020 Ct abdomen & pelvis w/contrast material Juan Carlos Ambrocio Work Phone: Start: 10-10-2020 CT of head without contrast Juan Carlos Ambrocio Work Phone: Start: 10-10-2020 Ammonia [Mass/volume ] in Plasma Juan Carlos Ambrocio Work Phone: Start: 10-10-2020 COVID-19/INFLUENZA A ,B MOLECULAR Juan Carlos Ambrocio Work Phone: Start: 10-10-2020 Drugs of abuse urine screening test Juan Carlos Ambrocio Work Phone: Start: 10-10-2020 Urinalysis Juan Carlos Kyle l Work Phone: Start: 10-10-2020 Calcium ionized Juan Carlos P atel Work Phone: Start: 10-10-2020 Basic metabolic 1998 panel - Serum or Plasma Juan Carlos Ambrocio Work Phone: Start: 10-10-2020 Beta hydroxybutyrate [Moles/volume] in Serum or Plasma Juan Carlos Ambrocio Work Phone: Start: 10-10-2020 Complete blood count with white cell differential, automated Juan Carlos Ambrocio Work Phone: Start: 10-10-2020 Complete blood count with white cell differential, manual Juan Carlos Ambrocio Work Phone: Start: 10-10-2020 Hepatic function 200 0 panel - Serum or Plasma Juan Carlos Ambrocio Work Phone: Start: 10-10-2020 Lipase [Enzymatic activity/volume] in Serum or Plasma Juan Carlos Ambrocio Work Phone: Start: 10-10-2020 OBTAIN VENOUS BLOOD GASES AND PERFORM Juan Carlos Ambrocio Work Phone: Start: 10-10-2020 Glucose [Mass/volume ] in Blood [facility] Start: 08-08-2020 Iadna chlamydia trac homatis amplified probe tq Tiffanie Alonso Pleitez Work Phone: Start: 08-08-2020 Meningococcus vaccination Tiffanie Pleitez Work Phone: Start: 04-19-2020 Urinalysis Isabella Basurto Work Phone: Start: 04-19-2020 Blood count hemoglobin Isabellarina Basurto Work Phone: Start: 04-19-2020 HUMPHRIES TOP Isabella Basurto Work Phone: Start: 04-19-2020 LIGHT BLUE TOP Isabella Escalante adriano Basurto Work Phone: Start: 04-19-2020 LIGHT GREEN TOP Isabella Neri serae Jeff Iniguez Work Phone: Start: 04-19-2020 RAINBOW DRAW Isabella Basurto Work Phone: Start: 04-19-2020 Beta hydroxybutyrate [Moles/volume] in Serum or Plasma Isabella Basurto Work Phone: Start: 04-19-2020 Complete blood count with white cell differential, automated Isabella Basurto Work Phone: Start: 04-19-2020 Complete blood count with white cell differential, manual Isabella Basurto Work Phone: Start: 04-19-2020 Comprehensive metabo lic 2000 panel - Serum or Plasma Isabella Basurto Work Phone: Start: 04-19-2020 Glucose [Mass/volume ] in Blood [facility] Plan of Treatment Date Care Activity Detail Author Start: 04-28-2026 Lipid panel [facility] Adult Diabetes Lipid Screening [facility] Start: 07-04-2025 DTAP/TDAP/TD VACCINE (7 - Td) DTAP/TDAP/TD VACCINE (7 - Td) [facility] Work Phone: Start: 07-04-2025 Tetanus vaccination Tetanus: Every 10yrs [facility] Start: 07-04-2025 Tetanus, diphtheria and acellular pertussis vaccination DTAP Vaccines (7 - Td) [facility] Start: 08-04-2023 PCC Adult Diabetes Urine Microalbumin [facility] Adult Diabetes Urine Microalbumin [facility] Start: 11-03-2022 Hemoglobin A1c measurement [facility] Adult Diabetes A1c [facility] Start: 07-22-2022 Influenza vaccination INFLUENZA VACCINE (#1) [facility] Start: 07-21-2022 [facility] Adult Diabetes BMP [facility] Adult Diabetes BMP [facility] Start: 04-28-2022 ENDO DIABETES LIPID PLAN ENDO DIABETES LIPID PLAN [facility] Start: 03-13-2021 Vaccination for human papillomavirus HPV VACCINE ADOL (3 - Male 3-dose series) [facility] Start: 02-11-2021 End: 02-11-2021 Clinical Support Encounter 02/11/2021 Clinical Support Encounter [facility] Start: 02-05-2021 Hepatitis A immunization [facility] Start: 2020 Hepatitis C antibody, confirmatory test Hepatitis C Screening [facility] Start: 11-12-2020 End: 11-12-2020 Clinical Support Encounter 11/12/2020 Clinical Support Encounter [facility] Start: 10-03-2020 Meningococcal conjugate vaccination Meningoccocal ACWY Vaccine (1 - 2-dose series) [facility] Start: 09-05-2020 Vaccination for human papillomavirus [facility] Start: 07-22-2020 Influenza vaccination given Sequential Influenza Vaccine (#[facility] Start: 07-22-2019 Influenza vaccination [facility] Start: 2018 COVID-19 Vaccine (1 of 2) COVID-19 Vaccine (1 of 2) [facility] Start: 2018 Meningococcal conjugate vaccination [facility] Work Phone: Start: 07-22-2018 Influenza vaccination INFLUENZA VACCINE (#1) [facility] Work Phone: Start: 2017 HIV screening HIV Screening [facility] Start: 2017 Vaccination for human papillomavirus HPV VACCINE ADOL (1 - Male 3-dose series) [facility] Start: 2016 Endocrinology Transition Assessment Endocrinology Transition Assessment [facility] Start: 2015 HIV screening HIV SCREENING DISCUSSION [facility] Work Phone: Start: 2014 Adolescent depression screening assessment Depression Screening (PHQ9) [facility] Start: 2013 Vaccination for human papillomavirus HPV VACCINE ADOL (1 - Male 3-dose series) [facility] Work Phone: Start: 2012 Albumin DL <= 20 mg/L (U) [Mass/Vol] Urine Microalbumin [facility] Start: 2012 Diabetic foot examination Foot Exam [facility] Start: 2012 MENB (1 of 2 - Risk Bexsero 2-dose series) MENB (1 of 2 - Risk Bexsero 2-dose series) [facility] Start: 2012 Ophthalmic examination and evaluation Ophthalmology Exam [facility] Start: 2011 HPV VACCINES (1 - Male 2-dose series) HPV VACCINES (1 - Male 2-dose series) [facility] Start: 2009 DTaP/Tdap/Td VACCINES (1 - Tdap) DTaP/Tdap/Td VACCINES (1 - Tdap) [facility] Start: 2008 Pneumococcal vaccination PNEUMOCOCCAL VACCINE (1 - PCV) [facility] Start: 2005 History and physical examination, annual for health maintenance Wellness Visit [facility] Start: 2003 Hepatitis A immunization HEP A VACCINE (1 of 2 - 2-dose series) [facility] Work Phone: Start: 2003 MMR VACCINES (1 of 1 - Standard series) MMR VACCINES (1 of 1 - Standard series) [facility] Start: 2003 VARICELLA VACCINES (1 of 2 - 2-dose childhood series) VARICELLA VACCINES (1 of 2 - 2-dose childhood series) [facility] Start: 06-22-2003 COVID-19 Vaccine (#1) COVID-19 Vaccine (#1) [facility] Start: 2002 Diabetic foot examination [facility] Adult Diabetes Foot Exam [facility] Start: 2002 Glaucoma screening [facility] Adult Diabetes Eye Exam [facility] Start: 2002 HbA1c (Bld) [Mass fraction] A1C [facility] Start: 2002 HEPATITIS B VACCINES (1 of 3 - 3-dose series) HEPATITIS B VACCINES (1 of 3 - 3-dose series) [facility] CHLAMYDIA/GONOCOCCUS, DONAVON CHLAMY ALMA/GONOCOCCUS, DONAVON Microbiology Today Has multiple sexual partners 08/08/2020 11:30 AM EDT [facility] CT Abdomen Pelvis Wi th IV Contrast Only CT Abdomen Pelvis With IV Contrast Only Imaging [facility] 10/10/2020 12:55 PM EST [facility] CT of head without contrast CT Head Or Brain Without Contrast Imaging [facility] 10/10/2020 12:55 PM EST [facility] Screening test visua l acuity quantitative bilat PA VISUAL SCREENING TEST, BILAT PA - OFFICE PERFORMED Routine Well adolescent visit Ordered: 08/08/2020 [facility] Immunizations Immunization Date Immunization Notes Care Provider Vita johnson 11-12-2020 HPV, unspecified formulation [facility] Gianni C [facility] 11-12-2020 Human Papillomavirus 9-valent vaccine [facility] 10-12-2020 influenza, injectabl e, quadrivalent, preservative free [facility] Nurse [facility] 10-12-2020 influenza virus vacc ine, unspecified formulation Ethel Tran RN [facility] 08-08-2020 hepatitis A vaccine, pediatric/adolescent dosage, 2 dose schedule [facility] 08-08-2020 Human Papillomavirus 9-valent vaccine [facility] 08-08-2020 meningococcal oligosaccharide (groups A, C, Y and W-135) diphtheria toxoid conjugate vaccine (MCV4O) [facility] 08-08-2020 meningococcal vaccin e of unknown formulation and unknown serogroups [facility] 08-08-2020 hepatitis A vaccine, unspecified formulation; Translations: [HEPATITIS A VACCINE PED/ADOLES 0.5ML IM] [facility] 08-08-2020 hepatitis A and hepatitis B vaccine Juan Carlos Ambrocio [facility] 08-08-2020 HPV, unspecified formulation [facility] 10-04-2017 influenza, seasonal, injectable, preservative free Ethel Tran RN [facility] 10-04-2017 influenza virus vacc ine, unspecified formulation [facility] Work Phone: 11-13-2015 meningococcal oligosaccharide (groups A, C, Y and W-135) diphtheria toxoid conjugate vaccine (MCV4O) [facility] Work Phone: 07-04-2015 tetanus toxoid, redu deisy diphtheria toxoid, and acellular pertussis vaccine, adsorbed [facility] Work Phone: 04-24-2008 diphtheria, tetanus toxoids and acellular pertussis vaccine [facility] Work Phone: 04-24-2008 measles, mumps and rubella virus vaccine [facility] Work Phone: 04-24-2008 poliovirus vaccine, inactivated [facility] Work Phone: 04-24-2008 varicella virus vaccine [facility] Work Phone: 06-30-2004 diphtheria, tetanus toxoids and acellular pertussis vaccine [facility] Work Phone: 06-30-2004 haemophilus influenz ae type b vaccine, conjugate unspecified formulation [facility] Work Phone: 06-30-2004 poliovirus vaccine, inactivated [facility] Work Phone: 12-27-2003 measles, mumps and rubella virus vaccine [facility] Work Phone: 12-27-2003 pneumococcal conjuga te vaccine, 7 valent [facility] Work Phone: 12-27-2003 varicella virus vaccine [facility] Work Phone: 06-25-2003 diphtheria, tetanus toxoids and acellular pertussis vaccine [facility] Work Phone: 06-25-2003 haemophilus influenz ae type b vaccine, conjugate unspecified formulation [facility] Work Phone: 06-25-2003 hepatitis B vaccine, pediatric or pediatric/adolescent dosage [facility] Work Phone: 06-25-2003 pneumococcal conjuga te vaccine, 7 valent [facility] Work Phone: 04-27-2003 hepatitis B vaccine, pediatric or pediatric/adolescent dosage [facility] 04-26-2003 diphtheria, tetanus toxoids and acellular pertussis vaccine [facility] Work Phone: 04-26-2003 haemophilus influenz ae type b vaccine, conjugate unspecified formulation [facility] Work Phone: 04-26-2003 pneumococcal conjuga te vaccine, 7 valent [facility] Work Phone: 04-26-2003 poliovirus vaccine, inactivated [facility] Work Phone: 02-05-2003 diphtheria, tetanus toxoids and acellular pertussis vaccine [facility] Work Phone: 02-05-2003 haemophilus influenz ae type b vaccine, conjugate unspecified formulation [facility] Work Phone: 02-05-2003 hepatitis B vaccine, pediatric or pediatric/adolescent dosage [facility] Work Phone: 02-05-2003 pneumococcal conjuga te vaccine, 7 valent [facility] Work Phone: 02-05-2003 poliovirus vaccine, inactivated [facility] Work Phone: 2002 hepatitis B vaccine, pediatric or pediatric/adolescent dosage [facility] Work Phone: Payers Date Payer Category Payer Unknown [facility] [employer] [id number] 2021-Present [address] [place] [address] Commercial [id number] 2016 Unknown [id number] 2015 Private Health Insurance AETNA AETNA CHOICE POS/POSII/PREMIER CARE/PREMIER CARE PLUS [id number] 2015-Present [id number] 2014 Private Health Insurance [id number] 2014 Private Health Insurance [address] [facility] [id number] 2002-Present [id number] 2002 Unknown [id number] 2002 Unknown [id number] 2002 Unknown [id number] 2002 Unknown [id number] 1971 Unknown [id number] 1971 Unknown [id number] Private Health Insurance [id number] Private Health Insurance AETNA SRC/AETNA AFF HEALTH CH/PPO INDEM [id number] Effective for all dates xxxxxxxxxxxx [id number] Social History Date Type Detail Facility Start: 11-28-2018 End: 10-10-2020 Tobacco smoking status NHIS Never smoker [facility] Work Phone: Start: 2002 Sex Assigned At Not on file O [facility] Work Phone: Start: 11-28-2018 Alcohol intake No [facility] Start: 08-08-2020 End: 07-21-2021 Tobacco use and exposure Never used [facility] Start: 08-08-2020 End: 11-12-2020 Alcohol intake Current non-drinker of alcohol (finding) [facility] Start: 10-10-2020 Alcohol intake Lifetime non-d petr (finding) [facility] Start: 10-10-2020 History SDOH Alcohol Frequency 1 [facility] Exposure to SARS-CoV -2 (event) Not sure [facility] Start: 07-21-2021 [facility]: 08-04-2022 Alcohol intake [facility] Medical Equipment Procedure Code Equipment Code Equipment Origin al Text Equipment Identifier Dates Use as directed to test blood sugar 6 times daily and as needed. [id number] Start: 01-21-2020 Use 4 to 6 times daily and as needed [id number] Start: 03-04-2020 Use as directed for injections up to 6x day [id number] Start: 03-04-2020 Use as directed 6 times daily. [id number] Start: 08-04-2022 Use as directed for injections up to 6x day [id number] Start: 08-04-2022 Monitor urine ketones prn when glucose above 300mg/dl and sick days [id number] Start: 08-04-2022 Use 4-6x/day and prn [id number] Star t: 08-04-2022 Use as directed to test blood sugar 6 times daily and as needed. [id number] Start: 02-03-2021 Use 4 to 6 times daily and as needed [id number] Start: 02-03-2021 Telephone encounter Note 02-08-2023 Telephone Encounter - Cele Adams APN - 02/08/2023 10:35 AM EDT Note Date & Type Note Facility 02-08-2023 Telephone encounter Note Called and spoke to pharmacy on file where rx had been sent from last visit. Per [facility] pharmacy there records show that novolog/aspart rx from 07/2022 was changed to fiasp under this provider's name. No documentation in pt chart that this provider approved change/rx fiasp. Per pharmacy rx were transferred to another pharmacy in [place]. No further action at this time. Per RN note below, requested pt to call back to inquire about f/u; if seen by outside provider or needs [facility] appt, if latter will be scheduled with Dr. Wilson, adult transition clinic. [facility] Note 02-08-2023 Telephone Encounter - Cele Adams APN - 02/08/2023 10:35 AM EDTTelephone Encounter - Ethel Tran RN - 02/08/2023 9:58 AM EDT Note Date & Type Note Facility 02-08-2023 Miscellaneous Notes Formattin g of this note might be different from the original. Called and spoke to pharmacy on file where rx had been sent from last visit. Per [facility] pharmacy there records show that novolog/aspart rx from 07/2022 was changed to fiasp under this provider's name. No documentation in pt chart that this provider approved change/rx fiasp. Per pharmacy rx were transferred to another pharmacy in [place]. No further action at this time. Per RN note below, requested pt to call back to inquire about f/u; if seen by outside provider or needs [facility] appt, if latter will be scheduled with Dr. Wilson, adult transition clinic. Received prior authorization request for Fiasp for patient. Per chart review, patient has not been seen since 07/2022. Outgoing call to patient to discuss if he has transitioned and if not, we will need to get the patient scheduled for a follow-up in transition clinic. Per chart review, we did not prescribe Fiasp for the patient. Outgoing call to pharmacy to see if they have a current script and who wrote the prescription. Spoke with pharmacy who stated the Fiasp prescription was sent on 02/08/2023 by Gladys Adams as well as [employer]. Spoke with Gladys Adams who stated she did not send over the prescriptions and she will follow-up with the pharmacy regarding this. PA request deleted. documented in this encounter [facility] Telephone encounter Note 02-08-2023 Telephone Encounter - Ethel Tran RN - 02/08/2023 9:58 AM EDT Note Date & Type Note Facility 02-08-2023 Telephone encounter Note Received prior authorization request for Fiasp for patient. Per chart review, patient has not been seen since 07/2022. Outgoing call to patient to discuss if he has transitioned and if not, we will need to get the patient scheduled for a follow-up in transition clinic. Per chart review, we did not prescribe Fiasp for the patient. Outgoing call to pharmacy to see if they have a current script and who wrote the prescription. Spoke with pharmacy who stated the Fiasp prescription was sent on 02/08/2023 by Gladys Adams as well as [employer]. Spoke with Gladys Adams who stated she did not send over the prescriptions and she will follow-up with the pharmacy regarding this. PA request deleted. 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 Current Issues/Concerns: Feels that he has anxiety and his Mom has recommended that he be given a prescription for medication. Review of Nutrition: Eats breakfast 2-3 times/week; eats a good variety of fruits, some vegetables,and proteins Dietary Supplements: none Review of Sleep: Sleep 5-10 hours/night Review of Elimination: No constipation Family history of Coronary Artery Disease before the age of 55 or hypercholesterolemia: No Dentist: Dr. Neeru Newton Grade: 12th grade School attended: [employer] Had been attending [employer] but transferred back to [employer] this week School performance: GPA 3.4 School attendance: no problems Activities: Sports :No Music:choir Community (4-H, wearing apparel presser, etc): No Work: Will be working at [employer] Peer interaction: Has 1-2 good friends that he interacts with Family interaction: Lives with Dad, Sister, and Brothers; sees biological Mom rarely Firearms in the home: Yes If yes, locked Yes Sexual Activity: yes: 8 partners, contraception - doesn't use condoms routinely and sex with females; STDs: Possible STD exposure Drug Use: marijuana once or twice/week--it helps me feel happier and focus easier; cigarettes weekly socially with friends Driving: Yes If driving, any traffic violations: No 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 Santana at [facility]; Anxiety-feels pressure from changing schools and pressure at home; He did see a [facility]eterian counselorseveral years ago, but did not feel that it helped SCARED scales completed by Juan and Sal. Dad's total score was 5. Sal's total score was 34 and significant for Panic Disorder, Generalized Anxiety and Significant School Avoidance. Sal denies suicidal or homicidal ideation. He has cut himself in the past but has not in several months. Physical Exam: General: alert, well-appearing, no acute distress Head: normocephalic, atraumatic Eyes: no eyelid swelling, no conjunctival injection or exudate, red reflex present, PERRL, extraocular movements intact Ears: no external swelling or tenderness, canals clear, tympanic membranes normal in appearance andposition Nose: nares patient Mouth/Throat: mucous membranes moist, no focal lesions, no tonsillar enlargement or exudate Neck: nontender, full range of motion, no mass, no focal lymphadenopathy Back: nontender, no deformity, no defect, no scoliosis Chest/Lungs: breath sounds clear and equal bilaterally, no respiratory distress Cardiovascular: regular rate and rhythm, no murmur, brisk capillary refill, femoral pulses intact without delay Abdomen: soft, nontender, nondistended, no hepatosplenomegaly, no mass, normal bowel sounds Genitalia: normal circumcised male: no lesions, discharge, mass, swelling or tenderness; testes descended bilaterally; no hernia, Fred IV Extremities: nontender, no deformity, full range of motion; feet without lesions +2 pedal pulses-noswelling Skin: warm, dry, no rash, no lesions Neurologic: alert, normal tone, no focal deficit, cranial nerves II-XII intact, normal speech, normal gait, symmetric reflexes, no motor deficit, no sensory deficit Impression: Sal Lo is a 19 y.o. male here for a well visit Type I DM poorly controlled Anxiety At risk for sexually transmitted infection due to multiple partners Plan: Discussed the importance of checking his blood sugar 4 times/day-before each meal and at bedtime. Strongly recommend contacting [facility] Endocrinology for an appointment. Also strongly recommend yearly ophthalmology exam UA for GC and CT sent to [facility] Discussed the importance of counseling along with medication management. Since Sal will be graduating from high school in 8 months and no longer a patient in our practice will refer to behavioral health so that his anxiety can be managed by the same provider once he graduates. Referral made to [facility]. Immunizations discussed and ordered: Menveo, Hep A, HPV vaccines I have counseled the caregiver(s) present regarding the benefits and known risks of the vaccines recommended per the [place] [employer] of Pediatrics and Center for Disease Control. Based on this discussion, the following immunizations were ordered: See orders for today's visit. Immunization(s) given as ordered, parent/guardian had the opportunity to ask questions and the patient tolerated the procedure well. Immunization Instructions given: Most immunization reactions are mild including soreness, redness and swelling at the shot site and low-grade fever (less than 101 degrees Farenheit) and DO NOT require a return visit to the doctor. Moderate to severe reactions occur rarely including difficulty breathing, wheezing or hoarseness, hives, paleness, weakness, a fast heart beat and dizziness and DO require prompt follow-up with a doctor. -Always wear seat belt in cars, do not drive impaired or with impaired driver education instructor. -If guns in home, keep locked up, ammunition separate, use trigger locks. -Alcohol, drug and tobacco use, peer pressure, and avoidance discussed. -Wear helmets when using bikes, scooters, skates, ATVs; use protective sports gear. -Get adequate sleep (8-10 hours/night). -Exercise regularly, eat a healthy diet. -You should have a dental visit every 6 months. -Contraception, STDs, and abstinence discussed. -Wear sunscreen, avoid sunburn. -Testicular self exams discussed. Hand out given. -Limit amount of TV/video/computer games to less than 3 hours/day. -Work permit completed, signed, and given to Sal Return to clinic in 2 months for #2 HPV and 6 months for #2 Hep A and #3 HPV. ELIAZAR Carey 08/08/2020 * Abbie Caraballo LPN - 08/08/2020 10:00 AM EDT Sal Lo presents in office for 19 y.o. y.o. 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 Father has concerns with anxiety. documented in this encounter* Aliya Ivory LPN - 11/12/2020 1:40 PM EST Sal oL is a 19 y.o. male present in office with PGF Alexis for 2nd HPV vaccine. No voiced concerns. HPV vaccine given in left arm IM without complication. Pt in office for 25 minutes after injection and rechecked, pt noted rash on b/l palms of hands, denies any SOB or difficulty breathing, denies any itching. No noted rash on arms or wrist. PGF advisedif rash spreads or worsens to give the office a call or if becomes SOB or difficulty breathing takept to ED, PGF voices understanding and agreed. documented in this encounter Assessments Diagnosis Generalized anxiety disorder- Primary Well adolescent visit Routine or child health check Has multiple sexual partners Diagnosis Ketosis (HCC)- Primary Acidosis Type 1 diabetes mellitus with ketoacidosis without coma (HCC) Altered mental status, unspecified altered mental status type Diagnosis Preventative health care- Primary Routine general medical examination at a health care facility Diagnosis Non-intractable vomiting with nausea, unspecified vomiting type Type 1 diabetes mellitus without complication (HCC) Type I (juvenile type) diabetes mellitus without mention of complication, not stated as uncontrolled Discharge Instructions * Attachments The following attachments cannot be sent through Care Everywhere. * Nausea and Vomiting ([place] [facility]) * Hypoglycemia in Diabetes: General Info ([place]) documented in this encounter Additional Source Comments (unrecognized sect ion and content) No Status Records FoundNo Status Records FoundNo Status Records FoundNo Status Records Found INFORMATION SOURCE (unrecogn ized section and content) DATE CREATED AUTHOR AUTHOR'S ORGANIZ ATION 10/13/2020 [facility] DATE CREATED AUTHOR AUTHOR'S ORGANIZ ATION 11/13/2020 [facility] DATE CREATED AUTHOR AUTHOR'S ORGANIZ ATION 10/11/2022 [facility] Reason for Visit (unrecogniz ed section and content) Reason Comments Well Child Pt presents in offic e for 19 yo WCC- Dad (Frantz) Reason Comments Emesis Reason Comments Immunization/Injection present in office with PGF Alexis for HPV vaccine Reason Comments Reason Onset Date Comments Prior Authorization 02/08/2023 Terrell Pelaez RN - 10/10/2020 12:14 PM Loulou Villalta - 10/10/2020 10:30 AM Juan Carlos Vaughan MD - 10/10/2020 9:29 AM Terrell Logan RN - 10/10/2020 9:25 AM EST ED Notes (unrecognized secti on and content) Lab called. Ammonia level hemolyzed and needs redrawn. Lab called to redraw lab. Called [facility] @ [phone] and spoke to Bridgette about getting pt transferred. Call given to Dr Ambrocio at this time. [facility] ED Attending Note: NAME: Sal Lo 19 y.o. CSN: [id number] PCP: Jesse Santana MD History: Chief Complaint: Emesis HPI: The history was obtained from the patient. Sal is a 19 y.o. male who presents with a chief complaint of Emesis. Patient 19-year-old male, history of diabetes type 1, presents with vomiting and nausea and abdominal pain Patient has been vomiting without able to take p.o. for the last 2 days. Is becoming more somnolent and confused, father states he is said his blood sugar was 200 yesterday, his bag was in the car so he doubts he actually checked it. Denies any fevers, no cough. The patient is becoming more confused. Patient complains of generalized abdominal pain Glucose today on arrival too high to measure PMHx: Past Medical History: Diagnosis Date MCAD (medium-chain acyl-CoA dehydrogenase deficiency) ([facility]) Type 1 diabetes ([facility]) PMSx: History reviewed. No pertinent surgical history. FAM. Hx: History reviewed. No pertinent family history. SOC. Hx: Social History Socioeconomic History Marital status: Single Spouse name: Not on file Number of children: Not on file Years of education: Not on file Highest education level: Not on file Occupational History Not on file Social Needs Financial resource strain: Not on file Food insecurity Worry: Not on file Inability: Not on file Transportation needs Medical: Not on file Non-medical: Not on file Tobacco Use Smoking status: Never Smoker Substance and Sexual Activity Alcohol use: Never Frequency: Never Drug use: Never Sexual activity: Not on file Lifestyle Physical activity Days per week: Not on file Minutes per session: Not on file Stress: Not on file Relationships Social connections Talks on phone: Not on file Gets together: Not on file Attends temple service: Not on file Active member of club or organization: Not on file Attends meetings of clubs or organizations: Not on file Relationship status: Not on file Other Topics Concern Not on file Social History Narrative Not on file MEDs: No current outpatient medications on file prior to encounter. ALL: No Known Allergies PACU Vitals 10/10/20 1200 BP: 121/79 Pulse: 96 Resp: Temp: SpO2: 100% Review of Systems Constitutional: Negative for activity change and appetite change. HENT: Negative for congestion, facial swelling and sinus pain. Respiratory: Negative for cough, choking and shortness of breath. Cardiovascular: Negative for chest pain. Gastrointestinal: Positive for abdominal pain, nausea and vomiting. Negative for abdominal distention. Genitourinary: Negative for dysuria and flank pain. Musculoskeletal: Negative for neck pain. Neurological: Negative for dizziness and syncope. Psychiatric/Behavioral: Negative for confusion and suicidal ideas. All other systems reviewed and are negative. Physical Exam Vitals signs and nursing note reviewed. Constitutional: Appearance: Normal appearance. He is not diaphoretic. HENT: Head: Normocephalic and atraumatic. Right Ear: External ear normal. Left Ear: External ear normal. Nose: Nose normal. No congestion or rhinorrhea. Mouth/Throat: Mouth: Mucous membranes are moist. Eyes: General: No scleral icterus. Extraocular Movements: Extraocular movements intact. Conjunctiva/sclera: Conjunctivae normal. Pupils: Pupils are equal, round, and reactive to light. Neck: Musculoskeletal: Neck supple. Cardiovascular: Rate and Rhythm: Normal rate and regular rhythm. Pulses: Normal pulses. Heart sounds: Normal heart sounds. No murmur. No gallop. Pulmonary: Effort: Pulmonary effort is normal. No respiratory distress. Breath sounds: Normal breath sounds. No wheezing or rales. Chest: Chest wall: No tenderness. Abdominal: Palpations: Abdomen is soft. There is no mass. Tenderness: There is abdominal tenderness (Generalized tenderness palpation of the entire abdomen). There is no guarding or rebound. Musculoskeletal: General: No swelling. Right lower leg: No edema. Left lower leg: No edema. Skin: General: Skin is warm. Neurological: General: No focal deficit present. Mental Status: He is alert and oriented to person, place, and time. Comments: Somnolence, slurred speech Psychiatric: Mood and Affect: Mood normal. Laboratory & Radiological Imaging (if done): Recent Results (from the past 24 hour(s)) POC Glucose Collection Time: 10/10/20 9:23 AM Result Value Ref Range Glucose >500 (CH) 65 - 99 mg/dL Chem 7 Collection Time: 10/10/20 9:32 AM Result Value Ref Range Sodium 127 (L) 135 - 145 mmol/L Potassium 3.6 3.5 - 5.1 mmol/L Chloride 86 (L) 98 - 108 mmol/L Bicarbonate 17 (L) 21 - 32 mmol/L Creatinine 1.34 (H) 0.50 - 1.00 mg/dL Glucose 462 (CH) 65 - 99 mg/dL BUN 37 (H) 8 - 25 mg/dL BUN/Creatinine Ratio 27.6 (H) 10.0 - 20.0 Anion Gap 28 (H) 10 - 20 mmol/L Beta-Hydroxybutyrate Collection Time: 10/10/20 9:32 AM Result Value Ref Range Beta-Hydroxybutyrate 6.0 (H) 0.0 - 0.3 mmol/L CBC Auto Differential Collection Time: 10/10/20 9:32 AM Result Value Ref Range WBC 25.91 (H) 4.50 - 11.00 K/mcL RBC 5.04 4.50 - 5.30 M/mcL Hemoglobin 14.7 13.0 - 16.0 g/dL Hematocrit 42.3 37.0 - 49.0 % MCV 83.9 78.0 - 98.0 fL MCH 29.2 25.0 - 35.0 pg MCHC 34.8 31.0 - 37.0 g/dL Platelets 379 150 - 400 K/mcL RDW - CV 13.0 11.6 - 14.8 % MPV 9.6 9.4 - 12.4 fL Neutrophils 79.8 % Lymphocytes 13.3 % Monocytes 5.2 % Eosinophils 0.0 % Basophils 0.4 % IG Percent 1.30 % Neutrophils Abs 20.68 (H) 1.70 - 7.00 K/mcL Lymphocytes Abs 3.44 0.90 - 4.00 K/mcL Monocytes Abs 1.34 (H) 0.30 - 0.90 K/mcL Eosinophils Abs 0.01 0.00 - 0.50 K/mcL Basophils Abs 0.11 0.00 - 0.30 K/mcL IG Absolute 0.33 (H) 0.00 - 0.30 K/mcL Nucleated RBC 0.0 % Nucleated RBC Abs 0.00 0.00 - 0.00 K/mcL Hepatic Function Panel (LFT) Collection Time: 10/10/20 9:32 AM Result Value Ref Range Total Protein 7.4 6.0 - 8.0 g/dL Albumin 4.1 3.2 - 4.5 g/dL Total Bilirubin 0.8 0.0 - 1.3 mg/dL Bilirubin, Direct 0.2 0.0 - 0.4 mg/dL Alkaline Phosphatase 155 75 - 270 U/L AST 30 0 - 45 U/L ALT 30 14 - 65 U/L Lipase Collection Time: 10/10/20 9:32 AM Result Value Ref Range Lipase 16 (L) 73 - 393 U/L POC Venous Blood Gas Panel-Pulm Collection Time: 10/10/20 9:44 AM Result Value Ref Range pH, Venous 7.36 7.32 - 7.42 pCO2, Alok 31.0 (L) 41.0 - 51.0 mm Hg pO2, Alok 51 (H) 25 - 40 mm Hg Base Excess, Alok -6.6 (L) -2.0 - 2.0 HCO3, Alok 17.6 (L) 24.0 - 28.0 mmol/L Ionized Calcium 4.0 (L) 4.5 - 5.3 mg/dL Lactic Acid 2.1 (H) 0.6 - 2.0 mmol/L Hemoglobin, Blood Gas 15.1 13.5 - 18.0 g/dL Hematocrit, Calculated 46.3 37.0 - 49.0 % O2 Sat, Alok 85.2 (H) 40.0 - 70.0 % O2 Hb 82.0 No established reference range % Carboxyhemoglobin 2.5 (H) <=1.5 % of total Hb Methemoglobin 1.3 0.0 - 2.0 % FIO2 21 Result Notification crit results to Dr. Ambrocio Specimen Source Not specified IMV 0 TIDAL VOLUME 0 RESP RATE 0 Sodium 130 (L) 135 - 145 mmol/L Potassium 3.7 3.5 - 5.1 mmol/L Glucose 493 (CH) 65 - 99 mg/dL Chloride 87 (L) 98 - 108 mmol/L COVID-19/Influenza A,B Molecular Collection Time: 10/10/20 11:01 AM Specimen: Nasopharyngeal; Swab Result Value Ref Range Influenza A Not Detected Not Detected Influenza B Not Detected Not Detected SARS-CoV-2 Not Detected Not Detected Urinalysis Collection Time: 10/10/20 11:01 AM Result Value Ref Range Color, Urine Colorless Colorless, Yellow Clarity, Urine Clear Clear Specific [place] 1.020 1.005 - 1.025 pH, Urine 5.0 5.0 - 7.0 Protein, Urine Negative Negative mg/dL Glucose, Urine >=500 (A) Negative mg/dL Ketones, Urine >=80 (A) Negative mg/dL Bilirubin, Urine Negative Negative Urobilinogen, Urine <2.0 <2.0 mg/dL Blood, Urine Negative Negative Nitrite, Urine Negative Negative Leukocyte Esterase, Urine Negative Negative WBCs, Urine 1 0 - 5 /hpf Bacteria, Urine None Seen None Seen /hpf Drugs of Abuse Screen, Urine Collection Time: 10/10/20 11:01 AM Result Value Ref Range Amphetamine Screen, Urine None Detected None Detected Barbiturate Screen, Urine None Detected None Detected Benzodiazepine Screen, Urine None Detected None Detected Cannabinoid Screen, Urine Presumptive Positive (A) None Detected Cocaine, Screen Urine None Detected None Detected Methadone Screen, Urine None Detected None Detected Opiate Screen, Urine None Detected None Detected Oxycodone Screen, Urine None Detected None Detected Ammonia Collection Time: 10/10/20 12:30 PM Result Value Ref Range Ammonia 79 (H) 12 - 47 micromol/L POC Glucose Collection Time: 10/10/20 1:02 PM Result Value Ref Range Glucose 433 (CH) 65 - 99 mg/dL CT Abdomen Pelvis With IV Contrast Only Preliminary Result CT head: No acute intracranial findings. CT abdomen and pelvis: Limited study due to motion artifact. Marked hepatic steatosis. No evidence of bowel obstruction. The appendix could not be confidently identified. No acute abdominopelvic abnormality within the limitation of the study. [email or web address] Workstation ID: [id number] CT Head Or Brain Without Contrast Preliminary Result CT head: No acute intracranial findings. CT abdomen and pelvis: Limited study due to motion artifact. Marked hepatic steatosis. No evidence of bowel obstruction. The appendix could not be confidently identified. No acute abdominopelvic abnormality within the limitation of the study. [email or web address] Workstation ID: [id number] Procedures: Procedures Critical Care Time on this patient was betweenn 33 minutes due to concern for metabolic derangements. This was exclusive of separately billable procedures. This includes evaluation of patient with genetic disorder along with type 1 diabetes with a significantly abated anion gap and keto acid buildup in the blood. Along with starting drips, giving insulin infusions, reviewing CT scans, discussion with multiple consultants and transfer ED Course / Medical Decision Making: Patient with nausea vomiting, altered mental status, and glucose too high to measure with a type I diabetic. Will get lab work DKA protocol pH normal at 7.36, glucose 493. Sodium 130, corrected around 135. Anion gap was elevated at 28, and beta hydroxybutyrate was 6 which is elevated. I spoke with ER physician, endocrinology and genetics over at [facility], they recommended ammonia level, 9 units of quick acting insulin, D5 drip, and transfer. They recommended further work-up for altered mental status, and l-carnitine infusion if no other source for altered mental status could be found The ammonia clotted, so repeat lab was drawn, and is elevated to 79, drug came back as positive for THC, which would be possibly consistent with the patient's altered mental status, although hyperammonemia as well could be, CT head, completed just prior to patient's transfer, given this, I was unable to get the l-carnitine prior to transfer. I have notified [facility] of this CT scans did return and were negative for acute findings. Patient was transferred to [facility] for further management, glucose was downtrending and mental status was slowly improving, neuro exam showed no focal deficit he still 5-5 strength bilaterally Clinical Impression: 1. Ketosis (HCC) 2. Type 1 diabetes mellitus with ketoacidosis without coma (HCC) 3. Altered mental status, unspecified altered mental status type Juan Carlos Ambrocio MD [facility] Emergency Department (Please note that portions of this note have been completed with a voice recognition software. Efforts were made to correct any errors, but occasionally words are mis-transcribed.) Juan Carlos Ambrocio MD 10/10/20 1315 PT STATES THAT HE HAS BEEN SICK FOR TWO DAYS WITH VOMITING AND NAUSEA. PT TYPE 1 DIABETIC. DENIES PAIN. BS TOO HIGH HERE IN ED. Bed: 05 Expected date: Expected time: Means of arrival: Comments: Next documented in this encounter Pt provided fluids and food per Dr. Basurto. Educated pt on pushing call light if feels nausea ED PROVIDER NOTE [facility] EMERGENCY DEPARTMENT NAME: Sal Lo AGE: 19 y.o. : 2000 VISIT DATE: 04/19/2020 CSN: [id number] PCP: Jesse Santana MD No chief complaint on file. 19-year-old male with a past medical history significant for type 1 diabetes presents emergency department with complaints of vomiting and hyperglycemia. He states that he has not been taking his insulin as prescribed and is not been checking his sugars and therefore he took extra insulin tonight because he thought his sugars were running high. Around 3 AM he started vomiting and feels as though he might be in DKA. He denies any pain at this time. He denies diarrhea fever chills he does complain of persistent nausea. History provided by: Patient side gluer used: No No past medical history on file. No past surgical history on file. No family history on file. Social History Socioeconomic History Marital status: Single Spouse name: Not on file Number of children: Not on file Years of education: Not on file Highest education level: Not on file Occupational History Not on file Social Needs Financial resource strain: Not on file Food insecurity Worry: Not on file Inability: Not on file Transportation needs Medical: Not on file Non-medical: Not on file Tobacco Use Smoking status: Not on file Substance and Sexual Activity Alcohol use: Not on file Drug use: Not on file Sexual activity: Not on file Lifestyle Physical activity Days per week: Not on file Minutes per session: Not on file Stress: Not on file Relationships Social connections Talks on phone: Not on file Gets together: Not on file Attends temple service: Not on file Active member of club or organization: Not on file Attends meetings of clubs or organizations: Not on file Relationship status: Not on file Other Topics Concern Not on file Social History Narrative Not on file No current outpatient medications on file prior to encounter. Allergies not on file Review of Systems Constitutional: Negative for fever. HENT: Negative for facial swelling and sore throat. Eyes: Negative for pain, discharge and visual disturbance. Respiratory: Negative for cough, chest tightness and shortness of breath. Cardiovascular: Negative for chest pain, palpitations and leg swelling. Gastrointestinal: Positive for nausea and vomiting. Negative for abdominal pain, constipation and diarrhea. Endocrine: Positive for polydipsia and polyuria. Genitourinary: Negative for dysuria and hematuria. Musculoskeletal: Negative for back pain and gait problem. Skin: Negative for pallor and rash. Allergic/Immunologic: Negative for immunocompromised state. Neurological: Negative for dizziness, seizures, syncope and headaches. Hematological: Negative for adenopathy. Psychiatric/Behavioral: Negative for behavioral problems and suicidal ideas. All other systems reviewed and are negative. Patient Vitals for the past 24 hrs: BP Temp Temp src Pulse Resp SpO2 Height Weight 04/19/20 0458 131/77 98.7 F (37.1 C) Oral 84 16 100 % 5' 8 55.3 kg (122 lb) Physical Exam Vitals signs and nursing note reviewed. Constitutional: General: He is not in acute distress. Appearance: Normal appearance. He is not ill-appearing. HENT: Head: Normocephalic and atraumatic. Right Ear: Ear canal and external ear normal. Left Ear: Ear canal and external ear normal. Nose: Nose normal. No rhinorrhea. Mouth/Throat: Mouth: Mucous membranes are moist. Pharynx: Oropharynx is clear. No oropharyngeal exudate. Eyes: General: No scleral icterus. Conjunctiva/sclera: Conjunctivae normal. Pupils: Pupils are equal, round, and reactive to light. Neck: Musculoskeletal: Neck supple. No neck rigidity. Cardiovascular: Rate and Rhythm: Normal rate and regular rhythm. Pulses: Normal pulses. Heart sounds: Normal heart sounds. No murmur. Pulmonary: Effort: Pulmonary effort is normal. No respiratory distress. Breath sounds: Normal breath sounds. No wheezing. Abdominal: General: Bowel sounds are normal. Palpations: Abdomen is soft. Tenderness: There is no abdominal tenderness. There is no guarding or rebound. Musculoskeletal: Normal range of motion. General: No swelling or signs of injury. Right lower leg: No edema. Left lower leg: No edema. Skin: General: Skin is warm. Capillary Refill: Capillary refill takes less than 2 seconds. Coloration: Skin is not jaundiced. Findings: No rash. Neurological: General: No focal deficit present. Mental Status: He is alert and oriented to person, place, and time. Cranial Nerves: No cranial nerve deficit. Sensory: No sensory deficit. Motor: No weakness. Gait: Gait normal. Psychiatric: Mood and Affect: Mood normal. Behavior: Behavior normal. Laboratory & Radiographic Imaging (if done): Results for orders placed or performed during the hospital encounter of 04/19/20 Comprehensive Metabolic Panel Result Value Ref Range Sodium 142 135 - 145 mmol/L Potassium 3.0 (L) 3.5 - 5.1 mmol/L Chloride 105 98 - 108 mmol/L Bicarbonate 26 21 - 32 mmol/L Anion Gap 14 10 - 20 mmol/L Glucose 76 65 - 99 mg/dL BUN 10 8 - 25 mg/dL Creatinine 1.13 (H) 0.50 - 1.00 mg/dL BUN/Creatinine Ratio 8.8 (L) 10.0 - 20.0 Total Protein 7.8 6.0 - 8.0 g/dL Albumin 4.4 3.2 - 4.5 g/dL Calcium 8.9 8.4 - 10.2 mg/dL Alkaline Phosphatase 145 75 - 270 U/L AST 16 0 - 45 U/L Total Bilirubin 0.3 0.0 - 1.3 mg/dL ALT 22 14 - 65 U/L Beta-Hydroxybutyrate Result Value Ref Range Beta-Hydroxybutyrate <0.1 0.0 - 0.3 mmol/L Urinalysis Result Value Ref Range Color, Urine Colorless Colorless, Yellow Clarity, Urine Clear Clear Specific [place] 1.004 (L) 1.005 - 1.025 pH, Urine 7.0 5.0 - 7.0 Protein, Urine Negative Negative mg/dL Glucose, Urine Negative Negative mg/dL Ketones, Urine Negative Negative mg/dL Bilirubin, Urine Negative Negative Urobilinogen, Urine <2.0 <2.0 mg/dL Blood, Urine Negative Negative Nitrite, Urine Negative Negative Leukocyte Esterase, Urine Negative Negative RBCs, Urine <1 0 - 3 /hpf Bacteria, Urine None Seen None Seen /hpf POC Glucose Result Value Ref Range Glucose 166 (H) 65 - 99 mg/dL POC Venous Blood Gas Panel-Pulm Result Value Ref Range pH, Venous 7.37 7.32 - 7.42 pCO2, Alok 42.4 41.0 - 51.0 mm Hg pO2, Alok 43 (H) 25 - 40 mm Hg Base Excess, Alok -0.7 -2.0 - 2.0 HCO3, Alok 24.7 24.0 - 28.0 mmol/L Hemoglobin, Blood Gas 15.0 13.5 - 18.0 g/dL Hematocrit, Calculated 45.9 37.0 - 49.0 % O2 Sat, Alok 78.9 (H) 40.0 - 70.0 % FIO2 21 IMV 0 TIDAL VOLUME 0 RESP RATE 0 CBC Auto Differential Result Value Ref Range WBC 9.58 4.50 - 11.00 K/mcL RBC 5.12 4.50 - 5.30 M/mcL Hemoglobin 15.1 13.0 - 16.0 g/dL Hematocrit 45.1 37.0 - 49.0 % MCV 88.1 78.0 - 98.0 fL MCH 29.5 25.0 - 35.0 pg MCHC 33.5 31.0 - 37.0 g/dL Platelets 336 150 - 400 K/mcL RDW - CV 12.0 11.6 - 14.8 % MPV 9.0 (L) 9.4 - 12.4 fL Neutrophils 44.4 % Lymphocytes 43.4 % Monocytes 9.0 % Eosinophils 2.3 % Basophils 0.4 % IG Percent 0.50 % Neutrophils Abs 4.25 1.70 - 7.00 K/mcL Lymphocytes Abs 4.16 (H) 0.90 - 4.00 K/mcL Monocytes Abs 0.86 0.30 - 0.90 K/mcL Eosinophils Abs 0.22 0.00 - 0.50 K/mcL Basophils Abs 0.04 0.00 - 0.30 K/mcL IG Absolute 0.05 0.00 - 0.30 K/mcL Nucleated RBC 0.0 % Nucleated RBC Abs 0.00 0.00 - 0.00 K/mcL No orders to display Procedures MDM Differential considerations include but are not limited to DKA, hyperglycemia, vomiting, gastroenteritis, electrolyte abnormality amongst others. Records Reviewed: No recent ER visits Will plan to check a VBG provide antiemetics as well as IV fluids, will also check electrolytes Labs were reviewed No DKA. Labs wnl. Passed PO challenge. Clinical Impression: 1. Non-intractable vomiting with nausea, unspecified vomiting type 2. Type 1 diabetes mellitus without complication (HCC) ED Disposition ED Disposition Condition Comment Discharge Stable Sal Lo discharged to home/self care in stable condition. Follow-up Information 1. Jesse Santana MD. Specialty: Pediatric Endocrinology [address] [place], [place] [id number] Contact information for after-discharge care Follow-up information has not been specified. Isabella Basurto MD 04/19/20 0601 Patient is here today for low blood sugar that was high before. It was bouncing between the 400's to 300's. He took about 20 units of novalog and he had 14 units of lantus. He is alert and oriented at this time and feels like hes possibly in DKA documented in this encounter Quick Note - ReynosoLashawn beckford RRT - 10/10/2020 9:44 AM EST Miscellaneous Notes (unrecog nized section and content) Critical VBG results given to Dr. Ambrocio documented in this encounter Care Teams (unrecognized sec tion and content) FOR RECORDS PERTAINING TO PATIENTS WHO ARE OR HAVE BEEN ENROLLED IN A CHEMICAL DEPENDENCY/SUBSTANCEABUSE PROGRAM, SOME INFORMATION MAY BE OMITTED. This clinical summary was aggregated from multiple sources. Caution should be exercised in using it in the provision of clinical care. This summary normalizes information from multiple sources, and as a consequence, information in this document may materially change the coding, format and clinical context of patient data. In addition, data may be omitted in some cases. CLINICAL DECISIONS SHOULD BE BASED ON THE PRIMARY CLINICAL RECORDS. [employer] provides no warranty or guarantee of the accuracy or completeness of information in this document.
[2023-11-09] MEDS: 0.9% Normal Saline (1000mL) 1,000 ML 1000 ML IV ×2 (17:38→18:38)
[2023-11-09] MEDS: Ondansetron 4 MG/2 ML Vial IV (17:38)
[2023-11-09 17:53] LABS: Absolute Neutrophil Count 9.3 X10^3/uL (2.0-7.7); Basophil# 0.04 X10^3/uL; Basophil% 0.4 % (0-1); Eosinophil# 0.13 X10^3/uL; Eosinophils% 1.2 % (0-5); Hematocrit 45.7 % (40-54); Hemoglobin 14.4 g/dL (13.0-16.5); Lymphocyte % 10.7 % (19-41); Mean Corp Hgb Conc 31.5 g/dL (32-36); Mean Corpuscular Hgb 29.2 pg (27.0-32.0); Mean Corpuscular Volume 92.7 fL (80-94); Mean Platelet Vol. 9.9 fl (6.2-12.0); Monocyte# 0.48 X10^3/uL; Monocyte% 4.3 % (0-10); NRBC Flagged by Analyzer 0 % (0-5); Neutrophil # 9.29 X10^3/uL (2.7-7.7); Neutrophil % 82.8 % (47-70); Platelet Count 339 K/mm3 (150-450); RBC Distribution Width SD 44.3 fl (35.1-43.9); Red Blood Count 4.93 M/mm3 (4.6-6.2); White Blood Count 11.2 K/mm3 (4.4-11.0)
[2023-11-09 18:16] LABS: ALB/GLOB Ratio 1.2 RATIO (0.9-2.4); AST(SGOT) 204 U/L (15-37); Alanine Aminotransfer ALT/SGPT 229 U/L (16-61); Albumin, Serum 4.1 g/dL (3.2-5.0); Alkaline Phosphatase 136 U/L (45-117); Anion Gap 22 (5-15); BUN 15 mg/dL (7-18); BUN/Creat Ratio 12.8 RATIO (10-20); Calcium,Total 9.7 mg/dL (8.5-10.1); Chloride 95 mmol/L (98-107); Creatinine, Serum 1.17 mg/dL (0.70-1.30); EST Glomerular Filtration Rate 84 mL/min (>60); Est Glom Filt Rate - Afr Amer 101 mL/min (>60); Estimated Creatinine Clearance 82.91 ml/min; Globulin 3.4 g/dL (2.2-4.2); Glucose 615 mg/dL (74-106); Lipase 19 U/L (13-75); Potassium 4.9 mmol/L (3.5-5.1); Protein, Total 7.5 g/dL (6.4-8.2); Sodium Level 132 mmol/L (136-145)
--- NOTE | 2023-11-09 18:37 | PCM.HP.STD ---
HPI - General General Date of Admission: 11/09/23 Date of Service: 11/09/23 Chief Complaint: Abdominal pain/nausea/vomiting HPI Narrative MACHELLE CALIX, is a 22 M who presented to the emergency department at [facility] on 11/09/2023 due to abdominal pain, nausea, and vomiting that began on the day of presentation. Patient reported it began rather suddenly and had been constant all day. He described the pain as tightness and burning and is diffuse across his entire abdomen. Patient reported he gets better when he is able to drink water. He has a history of diabetes and had a recent admission for DKA with rather rapid resolution. He denies any diarrhea, melena, hematochezia or coffee-ground emesis. He has severe thirst and polyuria. I asked him about compliance with his insulin initially he reported complete compliance however on further questioning he states that he does miss basal insulin sometimes but is unable to tell me how frequently. Vital signs on presentation showed temperature of 97.3, heart rate 97, blood pressure 140/87, respiratory rate 18 oxygen saturations are 97% on room air. CBC showed a mild leukocytosis with a white count of 11.2 and a left shift with an 82.8% neutrophilia however I believe this is likely related to dehydration with his DKA. Chemistry panel showed hyponatremia that is pseudohyponatremia due to a blood sugar of 615, potassium was 4.9, chloride 95, serum bicarbonate is 15 and anion gap is 22. BUN is 15 and serum creatinine is 1.17. He has chronically elevated transaminases and his bilirubin was 1.5, AST 204, ALT was 229 and alk phos was 136. He has been referred to GI previously and has not yet followed up. His lipase was normal. Acetone level serum was moderate. He was given IV fluids, antiemetics and started on an insulin drip in the emergency department and request for admission was made. [facility] Medical History Anxiety Depression Elevated liver enzymes H/O medication noncompliance History of cigarette smoking MCAD deficiency Nicotine vapor product user Type 1 diabetes Home Medications blood-glucose sensor (FreeStyle [place] 3 Sensor device) #2 ea 08/25/23 [Rx Last Taken Unknown] insulin aspart U-100 100 unit/mL (3 mL) subcutaneous pen (Novolog FlexPen U-100 Insulin aspart) 8 unit subcut TID DIABETES 10/24/23 [History Last Taken 11/09/23] insulin glargine 100 unit/mL (3 mL) subcutaneous pen (Lantus Solostar U-100 Insulin) 18 unit subcut QHS DIABETES 11/09/23 [History Last Taken 11/08/23] Allergy/AdvReac Type Severity Reaction Status Date / Time No Known Allergies Allergy Verified 11/09/23 17:18 Family History Mother Anxiety and depression Father Anxiety and depression Surgical History S/P left inguinal hernia repair Social History household members: other details: Currently living with his father with also financee, reporting moving alot. Smoking Status: Current every day smoker tobacco type: e-cigarettes Smokeless tobacco user: other Electronic Cigarette Use: with nicotine how long ago did patient quit smoking: Used cigarette tobacco 14-16 yrs old, 1/2 ppd until transitioned to vaping. 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 ROS Constitutional Constitutional: Reports anorexia and weakness; Denies change in weight, chills, fatigue, fever(s), malaise, night sweats or other Eyes Eyes: Denies blurry vision, change in eye color, change in vision, discharge from eye(s), double vision, erythema, eye pain, loss of vision or other ENT HEENT: Denies abnormal hearing, dysphagia, ear pain, epistaxis, headache(s), hearing loss, nasal congestion, nasal discharge, post nasal drip, sinus pressure, sore throat or other Cardiovascular Cardiovascular: Denies chest pain, claudication, dyspnea on exertion, edema, lightheadedness, orthopnea, palpitations, paroxysmal nocturnal dyspnea, rapid heart rate, syncope or other Respiratory/Chest Respiratory/Chest: Denies cough, dyspnea, excessive phlegm production, hemoptysis, productive cough, shortness of breath at rest, shortness of breath with exertion, wheezing or other Gastrointestinal Gastrointestinal: Reports abdominal pain, nausea and vomiting; Denies coffee ground emesis, constipation, diarrhea, dyspepsia, hematemesis, hematochezia, loose stools, melena or other Genitourinary Genitourinary: Denies burning urination, difficulty urinating, dysuria, hematuria, nocturia, urinary frequency, urinary hesitancy, urinary incontinence, urinary urgency or other Musculoskeletal Musculoskeletal: Denies arthralgias, back pain, joint pain, joint stiffness, joint swelling, myalgias, neck pain or other Neurologic Neurologic: Denies abnormal gait, abnormal speech, confusion, disequilibrium, dizziness, focal weakness, headache(s), numbness, paresthesias, seizure-like activity, seizures, syncope, tingling, tremor(s) or other Psychiatric Psychiatric: Denies anxiety, depression, homicidal ideation, suicidal ideation or other Endocrine Endocrinology: Reports polydipsia and polyuria; Denies change in body appearance, cold intolerance, excessive sweating, heat intolerance or other Hematologic/Lymphatic Hematologic/Lymphatic: Denies anemia, easy bleeding, easy bruising, lymphadenopathy or other Allergic/Immunologic Allergic/Immunologic: Denies rhinitis, hives, eczemia, asthma or other Vital Signs Vital Signs Vital Signs: 11/09/23 17:04 11/09/23 18:27 Temperature 97.3 F L 98.4 F Temperature Source Temporal Pulse Rate 97 89 Respiratory Rate 18 18 Blood Pressure 140/87 H 115/72 Blood Pressure Mean 104 86 Pulse Ox 97 97 Oxygen Delivery Method Room Air Weight Weight: 58.2 kg Body Mass Index (BMI) 19.5 Physical Exam Const alert and oriented x3; Negative for no apparent distress, average body habitus, healthy appearing or well nourished Constitutional Narrative: Thin, ill-appearing, young, white male, lying in bed with intermittent vomiting throughout my exam, appears ill General Appearance: cooperative HEENT normocephalic, head/scalp atraumatic and hearing grossly normal bilaterally HEENT Narrative: Mucous membranes are dry, Mallampati is 1, no thrush Eyes PERRL, EOMs intact bilaterally and conjunctivae normal Eyes Narrative: No scleral icterus Neck no lymphadenopathy and supple Neck Narrative: Trachea midline, no thyroid enlargement Resp no retractions, no use of accessory muscles and clear to auscultation bilaterally Resp Narrative: Mild tachypnea, with no signs of respiratory distress-suspect tachypnea is compensatory with DKA Auscultation: Negative for rales, rhonchi or wheezes Cardio regular rate, regular rhythm, S1 normal heart sound, S2 normal heart sound, no murmurs, no rub, no gallops and no clicks GI normal to inspection, nondistended, normoactive bowel sounds and soft to palpation; Negative for non-tender GI Narrative: Mild diffuse tenderness Extremity no clubbing, cyanosis or edema Extremity Narrative: 2+ pedal pulses Neuro oriented x3, CN's II-XII intact bilaterally, moves all extremities and no focal motor deficits Speech: speech normal Psych Psych Narrative: Affect is flat but appropriate for the situation, eye contact is good and patient interacts greatly Results Lab / Micro Data 11/09/23 17:30 11/09/23 17:30 Labs: Laboratory Results - last 24 hr 11/09/23 17:30: WBC 11.2 H, RBC 4.93, Hgb 14.4, Hct 45.7, MCV 92.7, MCH 29.2, MCHC 31.5 L, RDW Std Deviation 44.3 H, RDW Coeff of Violeta 13.0, Plt Count 339, MPV 9.9, Immature Gran % (Auto) 0.600, Neut % (Auto) 82.8 H, Lymph % (Auto) 10.7 L, Stoddard % (Auto) 4.3, Eos % (Auto) 1.2, Baso % (Auto) 0.4, Absolute Neuts (auto) 9.3 H, Absolute Lymphs (auto) 1.20, Nucleated RBC % 0, Sodium 132 L, Potassium 4.9, Chloride 95 L, Carbon Dioxide 15.0 L, Anion Gap 22 H, BUN 15, Creatinine 1.17, Estim Creat Clear Calc 82.91, Est GFR (MDRD) Af Amer 101, Est GFR (MDRD) Non-Af 84, BUN/Creatinine Ratio 12.8, Glucose 615 H*, Calcium 9.7, Total Bilirubin 1.50 H, AST 204 H, ALT 229 H, Alkaline Phosphatase 136 H, Total Protein 7.5, Albumin 4.1, Globulin 3.4, Albumin/Globulin Ratio 1.2, Lipase 19, Acetone Level MODERATE H Assessment & Plan Assessment/Plan (1) Diabetic ketoacidosis: (2) Type 1 diabetes mellitus: (3) Fatty liver disease, nonalcoholic: (4) High anion gap metabolic acidosis: (5) Noncompliance: (6) Leukocytosis: (7) Abdominal pain: (8) Nausea and vomiting: PLAN: Plan Diabetic ketoacidosis -This is patient's second admission this month -He initially reported compliance with his insulin and I discussed with him that there is no way he is going into DKA repetitively and he is taking his insulin he then admitted that he does miss doses of his basal insulin but unable to tell me how frequently he is missing doses. It sounds as if he tries to get himself out of DKA when he knows he is going into it by giving himself subcu bolus doses but I suspect it is too late by that point in time -Start DKA protocol with insulin drip -Aggressive IV fluids -Serial electrolyte monitoring -Await resolution of ketones and gap closure to transition back to subcu insulin Leukocytosis -Likely related to dehydration and acute illness -No signs of acute infection -Monitor Abdominal pain/nausea and vomiting -Due to DKA -Should resolve with resolution of DKA Elevated anion gap metabolic acidosis -Secondary to DKA -Should resolve with resolution of DKA -Bicarb on admission is 15 with an anion gap of 22 DM-1 -At baseline patient is taking 18 units of subcu Lantus and 8 units 3 times daily before meals -Will restart insulin once DKA has resolved -Will need diabetic diet on resolution of insulin after gap is cleared Transaminitis with hepatosteatosis -Noted on ultrasound in 2021 -I made a referral to gastroenterology at the time of his last discharge -Patient has not yet been seen or made an appointment -Would recommend again follow-up with GI at discharge History of ADHD -Patient is currently on no medications History of nicotine abuse -Recommend cessation -Nicotine patch available Remote history of substance abuse -No current issues DVT prophylaxis -Subcu Lovenox daily CODE STATUS Full code Critical care time greater than 35 minutes without procedures Charges/Coding Procedures Hospitalists Procedures: 56740 Critical Care 1st Hr
[2023-11-09] MEDS: Insulin Lispro 100 UNIT in 0.9% Normal Saline (100mL Bag) 99 ML 5.79999999999999982 UNIT CONT INF (18:38)
--- NOTE | 2023-11-09 18:48 | NURSING ---
11/09/23@1845- REPORT CALLED TO ANMOL REBOLLEDO ON ICU.
--- OUTSIDE RECORDS SUMMARY | 2023-11-09 18:51 | XMS RPT_ITS | CCD ---
Author Name Unknown Address [address] [place] [address] Organization [facility] Care Team Providers Care Security Threat Analyst Name Role Phone Tank De La Torre Unavailable Unavailable Tank De La Torre Unavailable Unavailable Emerson Rosario Unavailable Emerson Rosario Primary Care Provider [phone] Hillary Mojica Primary Care Provider Jesse Santana Primary Care Provider [phone] JESSE SANTANA Primary Care Unavailable JUAN CARLOS [...] Unavailable Hillary Mojica MD Primary Care Provider [phone] Medications Current Medications Medication Drug Class(es) Dates [...] Facility 11-12-2020 13:54-0500 Body Temperature 98.01 [degF] [facility] 11-12-2020 13:54-0500 Pulse (Heart Rate) 68 /min [facility] 11-12-2020 13:54-0500 Respiratory Rate 18 /min [facility] 10-10-2020 12:00-0500 BP Diastolic 79 mm[Hg] [facility] 10-10-2020 12:00-0500 BP Systolic 121 mm[Hg] [facility] 10-10-2020 12:00-0500 Pulse (Heart Rate) 96 /min [facility] 10-10-2020 12:00-0500 Pulse Oximetry 100 % [facility] 10-10-2020 11:24-0500 Respiratory Rate 16 /min [facility] 10-10-2020 09:44-0500 Respiratory rate 0 /min [facility] 10-10-2020 09:26-0500 BMI (Body Mass Index) 17.9 kg/m2 [facility] 10-10-2020 09:26-0500 Body Temperature 97.7 [degF] [facility] 10-10-2020 09:26-0500 Body weight 54.97 kg [facility] 10-10-2020 09:26-0500 Height 175.3 cm [facility] 08-08-2020 10:05-0400 BMI (Body Mass Index) 17.7 kg/m2 [facility] 08-08-2020 10:05-0400 Body Temperature 97.9 [degF] [facility] 08-08-2020 10:05-0400 Body weight 51.26 kg [facility] 08-08-2020 10:05-0400 BP Diastolic 60 mm[Hg] [facility] 08-08-2020 10:05-0400 BP Systolic 104 mm[Hg] [facility] 08-08-2020 10:05-0400 Height 170.2 cm [facility] 08-08-2020 10:05-0400 Pulse (Heart Rate) 74 /min [facility] 08-08-2020 10:05-0400 Respiratory Rate 16 /min [facility] 04-19-2020 06:38-0400 BP Diastolic 61 mm[Hg[facility] 06:38-0400 BP Systolic 118 mm[Hg] [facility] 04-19-2020 06:38-0400 Pulse (Heart Rate) 74 /min [facility] 04-19-2020 06:38-0400 Pulse Oximetry 100 % [facility] 04-19-2020 06:38-0400 Respiratory Rate 16 /min Isabellarina Agu[facility] 04-19-2020 05:10-0400 Respiratory rate 0 /min [facility] 04-19-2020 04:58-0400 BMI (Body Mass Index) 18.55 kg/m2 Isabella Jeff Iniguez [facility] 04-19-2020 04:58-0400 Body Temperature 98.71 [degF] Isabella Basurto [facility] 04-19-2020 04:58-0400 Body weight 55.34 kg Isabella Basurto [facility] 04-19-2020 04:58-0400 Height 172.7 cm Isabella Basurto [facility] Encounters Encounter Date Encounter Type Care Provider Facility Start: 02-08-2023 Telephone encounter Ethel Tran RN [facility] Procedures Date Procedure Procedure Detail Performing Clinician Start: 10-10-2020 Glucose [Mass/volume ] in Blood [facility] Start: 10-10-2020 Ct abdomen & [...] Start: 10-10-2020 Glucose [Mass/volume ] in Blood [facility] Start: 08-08-2020 Iadna chlamydia trac [...] Start: 04-19-2020 Glucose [Mass/volume ] in Blood [facility] Plan of Treatment Date Care Activity Detail Author Start: 04-28-2026 Lipid panel [facility] Adult Diabetes Lipid Screening [facility] Start: 07-04-2025 DTAP/TDAP/TD VACCINE (7 - Td) DTAP/TDAP/TD VACCINE (7 - Td) [facility] Work Phone: Start: 07-04-2025 Tetanus vaccination Tetanus: Every 10yrs [facility] Start: 07-04-2025 Tetanus, diphtheria and acellular pertussis vaccination DTAP Vaccines (7 - Td) [facility] Start: 08-04-2023 PCC Adult Diabetes Urine Microalbumin [facility] Adult Diabetes Urine Microalbumin [facility] Start: 11-03-2022 Hemoglobin A1c measurement [facility] Adult Diabetes A1c [facility] Start: 07-22-2022 Influenza vaccination INFLUENZA VACCINE (#1) [facility] Start: 07-21-2022 [facility] Adult Diabetes BMP [facility] Adult Diabetes BMP [facility] Start: 04-28-2022 ENDO DIABETES LIPID PLAN ENDO DIABETES LIPID PLAN [facility] Start: 03-13-2021 Vaccination for human papillomavirus HPV VACCINE ADOL (3 - Male 3-dose series) [facility] Start: 02-11-2021 End: 02-11-2021 Clinical Support Encounter 02/11/2021 Clinical Support Encounter [facility] Start: 02-05-2021 Hepatitis A immunization [facility] Start: 2020 Hepatitis C antibody, confirmatory test Hepatitis C Screening [facility] Start: 11-12-2020 End: 11-12-2020 Clinical Support Encounter 11/12/2020 Clinical Support Encounter [facility] Start: 10-03-2020 Meningococcal conjugate vaccination Meningoccocal ACWY Vaccine (1 - 2-dose series) [facility] Start: 09-05-2020 Vaccination for human papillomavirus [facility] Start: 07-22-2020 Influenza vaccination given Sequential Influenza Vaccine (#1) [facility] Start: 07-22-[address] [facility] Start: 2018 COVID-19 Vaccine (1 of 2) COVID-19 Vaccine (1 of 2) [facility] Start: 2018 Meningococcal conjugate vaccination [facility] Work Phone: Start: 07-22-2018 Influenza vaccination INFLUENZA VACCINE (#1) [facility] Work Phone: Start: 2017 HIV screening HIV Screening [facility] Start: 2017 Vaccination for human papillomavirus HPV VACCINE ADOL (1 - Male 3-dose series) [facility] Start: 2016 Endocrinology Transition Assessment Endocrinology Transition Assessment [facility] Start: 2015 HIV screening HIV SCREENING DISCUSSION [facility] Work Phone: Start: 2014 Adolescent depression screening assessment Depression Screening (PHQ9) [facility] Start: 2013 Vaccination for human papillomavirus HPV VACCINE ADOL (1 - Male 3-dose series) [facility] Work Phone: Start: 2012 Albumin DL <= 20 mg/L (U) [Mass/Vol] Urine Microalbumin [facility] Start: 2012 Diabetic foot examination Foot Exam [facility] Start: 2012 MENB (1 of 2 - Risk Bexsero 2-dose series) MENB (1 of 2 - Risk Bexsero 2-dose series) [facility] Start: 2012 Ophthalmic examination and evaluation Ophthalmology Exam [facility] Start: 2011 HPV VACCINES (1 - Male 2-dose series) HPV VACCINES (1 - Male 2-dose series) [facility] Start: 2009 DTaP/Tdap/Td VACCINES (1 - Tdap) DTaP/Tdap/Td VACCINES (1 - Tdap) [facility] Start: 2008 Pneumococcal vaccination PNEUMOCOCCAL VACCINE (1 - PCV) [facility] Start: 2005 History and physical examination, annual for health maintenance Wellness Visit [facility] Start: 2003 Hepatitis A immunization HEP A VACCINE (1 of 2 - 2-dose series) [facility] Work Phone: Start: 2003 MMR VACCINES (1 of 1 - Standard series) MMR VACCINES (1 of 1 - Standard series) [facility] Start: 2003 VARICELLA VACCINES (1 of 2 - 2-dose childhood series) VARICELLA VACCINES (1 of 2 - 2-dose childhood series) [facility] Start: 06-22-2003 COVID-19 Vaccine (#1) COVID-19 Vaccine (#1) [facility] Start: 2002 Diabetic foot examination [facility] Adult Diabetes Foot Exam [facility] Start: 2002 Glaucoma screening [facility] Adult Diabetes Eye Exam [facility] Start: 2002 HbA1c (Bld) [Mass fraction] A1C [facility] Start: 2002 HEPATITIS B VACCINES (1 of 3 - 3-dose series) HEPATITIS B VACCINES (1 of 3 - 3-dose series) [facility] CHLAMYDIA/GONOCOCCUS, DONAVON CHLAMY ALMA/GONOCOCCUS, DONAVON Microbiology Today Has multiple sexual partners 08/08/2020 11:30 AM EDT [facility] CT Abdomen Pelvis Wi th IV Contrast Only CT Abdomen Pelvis With IV Contrast Only Imaging [facility] 10/10/2020 12:55 PM EST [facility] CT of head without contrast CT Head Or Brain Without Contrast Imaging [facility] 10/10/2020 12:55 PM EST [facility] Screening test visua l acuity quantitative bilat IN VISUAL SCREENING TEST, BILAT IN - OFFICE PERFORMED Routine Well adolescent visit Ordered: 08/08/2020 [facility] Immunizations Immunization Date Immunization Notes Care Provider Vita johnson 11-12-2020 HPV, unspecified formulation [facility] Gianni C [facility] 11-12-2020 Human Papillomavirus 9-valent vaccine [facility] 10-12-2020 influenza, injectabl e, quadrivalent, preservative free [facility] 10-12-2020 influenza virus vacc ine, unspecified formulation Ethel Tran RN [facility] 08-08-2020 hepatitis A vaccine, pediatric/adolescent dosage, 2 dose schedule [facility] 08-08-2020 Human Papillomavirus 9-valent vaccine [facility] 08-08-2020 meningococcal oligosaccharide (groups A, C, Y and W-135) diphtheria toxoid conjugate vaccine (MCV4O) [facility] 08-08-2020 meningococcal vaccin e of unknown formulation and unknown serogroups [facility] 08-08-2020 hepatitis A vaccine, unspecified formulation; Translations: [HEPATITIS A VACCINE PED/ADOLES 0.5ML IM] [facility] 08-08-2020 hepatitis A and hepatitis B vaccine Juan Carlos Ambrocio [facility] 08-08-2020 HPV, unspecified formulation [facility] 10-04-2017 influenza, seasonal, injectable, preservative free Ethel Tran RN [facility] 10-04-2017 influenza virus vacc ine, unspecified formulation [facility] Work Phone: 11-13-2015 meningococcal oligosaccharide (groups A, C, Y and W-135) diphtheria toxoid conjugate vaccine (MCV4O) [facility] Work Phone: 07-04-2015 tetanus toxoid, redu deisy diphtheria toxoid, and acellular pertussis vaccine, adsorbed [facility] Work Phone: 04-24-2008 diphtheria, tetanus toxoids and acellular pertussis vaccine [facility] Work Phone: 04-24-2008 measles, mumps and rubella virus vaccine [facility] Work Phone: 04-24-2008 poliovirus vaccine, inactivated [facility] Work Phone: 04-24-2008 varicella virus vaccine [facility] Work Phone: 06-30-2004 diphtheria, tetanus toxoids and acellular pertussis vaccine [facility] Work Phone: 06-30-2004 haemophilus influenz ae type b vaccine, conjugate unspecified formulation [facility] Work Phone: 06-30-2004 poliovirus vaccine, inactivated [facility] Work Phone: 12-27-2003 measles, mumps and rubella virus vaccine [facility] Work Phone: 12-27-2003 pneumococcal conjuga te vaccine, 7 valent [facility] Work Phone: 12-27-2003 varicella virus vaccine [facility] Work Phone: 06-25-2003 diphtheria, tetanus toxoids and acellular pertussis vaccine [facility] Work Phone: 06-25-2003 haemophilus influenz ae type b vaccine, conjugate unspecified formulation [facility] Work Phone: 06-25-2003 hepatitis B vaccine, pediatric or pediatric/adolescent dosage [facility] Work Phone: 06-25-2003 pneumococcal conjuga te vaccine, 7 valent [facility] Work Phone: 04-27-2003 hepatitis B vaccine, pediatric or pediatric/adolescent dosage [facility] 04-26-2003 diphtheria, tetanus toxoids and acellular pertussis vaccine [facility] Work Phone: 04-26-2003 haemophilus influenz ae type b vaccine, conjugate unspecified formulation [facility] Work Phone: 04-26-2003 pneumococcal conjuga te vaccine, 7 valent [facility] Work Phone: 04-26-2003 poliovirus vaccine, inactivated [facility] Work Phone: 02-05-2003 diphtheria, tetanus toxoids and acellular pertussis vaccine [facility] Work Phone: 02-05-2003 haemophilus influenz ae type b vaccine, conjugate unspecified formulation Tammy [facility] Work Phone: 02-05-2003 hepatitis B vaccine, pediatric or pediatric/adolescent dosage [facility] Work Phone: 02-05-2003 pneumococcal conjuga te vaccine, 7 valent [facility] Work Phone: 02-05-2003 poliovirus vaccine, inactivated [facility] Work Phone: 2002 hepatitis B vaccine, pediatric or pediatric/adolescent dosage [facility] Work Phone: Payers Date Payer Category Payer Unknown [facility] ANTH BASIC [id number] 2021-Present [address] [place] [address] Commercial [id number] 2016 Unknown [id number] 2015 Private Health Insurance AETNA AETNA CHOICE POS/POSII/PREMIER CARE/PREMIER CARE PLUS [id number] 2015-Present [id number] 2014 Private Health Insurance [id number] 2014 Private Health Insurance [address] [facility] [id number] 2002-Present [id number] 2002 Unknown [id number] 2002 Unknown [id number] 2002 Unknown [id number] 2002 Unknown [id number] 1971 Unknown [id number] 1971 Unknown [id number] Private Health Insurance [id number] Private Health Insurance AETNA SRC/AETNA AFF HEALTH CH/PPO INDEM xxxxxxxxxxxx Effective for all dates xxxxxxxxxxxx [id number] Social History Date Type Detail Facility Start: 11-28-2018 End: 10-10-2020 Tobacco smoking status NHIS Never smoker [facility] Work Phone: Start: 2002 Sex Assigned At Not on file [facility] Work Phone: Start: 11-28-2018 Alcohol intake No [facility] Start: 08-08-2020 End: 07-21-2021 Tobacco use and exposure Never used [facility] Start: 08-08-2020 End: 11-12-2020 Alcohol intake Current non-drinker of alcohol (finding) [facility] Start: 10-10-2020 Alcohol intake Lifetime non-d petr (finding) [facility] Start: 10-10-2020 History SDOH Alcohol Frequency 1 [facility] Exposure to SARS-CoV -2 (event) Not sure [facility] Start: 07-21-2021 [facility] Start: 08-04-2022 Alcohol intake [facility] Medical Equipment Procedure Code Equipment Code Equipment Origin al Text Equipment Identifier Dates Use as directed to test blood sugar 6 times daily and as needed. [id number] Start: 01-21-2020 Use 4 to 6 times daily and as needed [id number] Start: 03-04-2020 Use as directed for injections up to 6x day [id number] Start: 03-04-2020 Use as directed 6 times daily. [id number] Start: 08-04-2022 Use as directed for injections up to 6x day [id number] Start: 08-04-2022 Monitor urine ketones prn when glucose above 300mg/dl and sick days [id number] Start: 08-04-2022 Use 4-6x/day and prn [id number] Star t: 08-04-2022 Use as directed to test blood sugar 6 times daily and as needed. [id number] Start: 02-03-2021 Use 4 to 6 times daily and as needed [id number] Start: 02-03-2021 Telephone encounter Note 02-08-2023 Telephone Encounter - Cele Adams APN - 02/08/2023 10:35 AM EDT Note Date & Type Note Facility 02-08-2023 Telephone encounter Note Called and spoke to pharmacy on file where rx had been sent from last visit. Per [facility] pharmacy there records show that novolog/aspart rx from 07/2022 was changed to fiasp under this provider's name. No documentation in pt chart that this provider approved change/rx fiasp. Per pharmacy rx were transferred to another pharmacy in [place]. No further action at this time. Per RN note below, requested pt to call back to inquire about f/u; if seen by outside provider or needs [facility] appt, if latter will be scheduled with Dr. Wilson, adult transition clinic. [facility] Note 02-08-2023 Telephone Encounter - Cele Adams APN - 02/08/2023 10:35 AM EDTTelephone Encounter - Ethel Tran RN - 02/08/2023 9:58 AM EDT Note Date & Type Note Facility 02-08-2023 Miscellaneous Notes Formattin g of this note might be different from the original. Called and spoke to pharmacy on file where rx had been sent from last visit. Per [facility] pharmacy there records show that novolog/aspart rx from 07/2022 was changed to fiasp under this provider's name. No documentation in pt chart that this provider approved change/rx fiasp. Per pharmacy rx were transferred to another pharmacy in [place]. No further action at this time. Per RN note below, requested pt to call back to inquire about f/u; if seen by outside provider or needs [facility] appt, if latter will be scheduled with [...] PA request deleted. documented in this encounter [facility] Telephone encounter Note 02-08-2023 Telephone Encounter - [...] the pharmacy regarding this. PA request deleted. 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 Helper Expl anation Advance Directives and Livin g Will 10/10/2020 5:24 AM Documents on File Type Date Recorded Patient Fisherman Helper Expl anation Advance Directives and Livin g Will 04/19/2020 5:24 AM Reason for Referral Status Reason Specialty Diagnoses / Procedures Referred By Contact Referred To Contact New Request Diagnoses Generalized anxiety disorder Tiffanie Pleitez, [employer] [address] [place] [address] History of Present Illness * Tiffanie Pleitez [...] grade School attended: [employer] Had been attending [employer] but transferred back to [employer] this week School performance: GPA 3.4 School attendance: no problems Activities: Sports :No Music:choir Community (4-H, spot 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 Santana at [facility]; Anxiety-feels pressure from changing schools and pressure at home; He did see a Tenriism counselorseveral years ago, but did not feel [...] meal and at bedtime. Strongly recommend contacting [facility] Endocrinology for an appointment. Also strongly recommend yearly ophthalmology exam UA for GC and CT sent to [facility] Discussed the importance of counseling along with medication management. Since Sal will be graduating from high school in 8 months and no longer a patient in our practice will refer to behavioral health so that his anxiety can be managed by the same provider once he graduates. [facility]erral [facility] to [facility]. 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 -If guns in home, keep locked up, [...] presents in office for 19 y.o. y.o. 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 Father has concerns with anxiety. documented in this encounter* Aliya Ivory LPN - 11/12/2020 1:40 PM EST Sal Lo is a 19 y.o. male present in [...] through Care Everywhere. * Nausea and Vomiting (Danish) * Hypoglycemia in Diabetes: General Info (Danish) documented in this encounter Additional Source Comments (unrecognized sect ion and content) No Status Records FoundNo Status Records FoundNo Status Records FoundNo Status Records Found INFORMATION SOURCE (unrecogn ized section and content) DATE CREATED AUTHOR AUTHOR'S ORGANIZ ATION 10/13/2020 [facility] DATE CREATED AUTHOR AUTHOR'S ORGANIZ ATION 11/13/2020 [facility] DATE CREATED AUTHOR AUTHOR'S ORGANIZ ATION 10/11/2022 [facility] Reason for Visit (unrecogniz ed section and [...] redrawn. Lab called to redraw lab. Called [facility] @ [phone] and spoke to Bridgette about getting pt transferred. Call given to Dr Ambrocio at this time. [facility] ED Attending Note: NAME: Sal Lo 19 y.o. CSN: [id number] PCP: Jesse Santana MD History: Chief Complaint: [...] Diagnosis Date MCAD (medium-chain acyl-CoA dehydrogenase deficiency) ([facility]) Type 1 diabetes ([facility]) PMSx: History reviewed. No pertinent surgical history. [...] file Gets together: Not on file Attends amish service: Not on file Active member of [...] Colorless, Yellow Clarity, Urine Clear Clear Specific Anderson 1.020 1.005 - 1.025 pH, Urine 5.0 [...] abnormality within the limitation of the study. [employer] Workstation ID: [id number] CT Head Or Brain Without Contrast Preliminary Result CT head: No acute intracranial findings. CT abdomen and pelvis: Limited study due to motion artifact. Marked hepatic steatosis. No evidence of bowel obstruction. The appendix could not be confidently identified. No acute abdominopelvic abnormality within the limitation of the study. [employer] Workstation ID: [id number] Procedures: Procedures Critical Care [...] ER physician, endocrinology and genetics over at [facility], they recommended ammonia level, 9 units of [...] l-carnitine prior to transfer. I have notified [facility] of this CT scans did return and were negative for acute findings. Patient was transferred to [facility] for further management, glucose was downtrending and mental status was slowly improving, neuro exam showed no focal deficit he still 5-5 strength bilaterally Clinical Impression: 1. Ketosis (HCC) 2. Type 1 diabetes mellitus with ketoacidosis without coma (HCC) 3. Altered mental status, unspecified altered mental status type Juan Carlos Ambrocio MD [facility] Emergency Department (Please note that portions of [...] light if feels nausea ED PROVIDER NOTE [facility] EMERGENCY DEPARTMENT NAME: Sal Lo AGE: 19 y.o. : 2000 VISIT DATE: 04/19/2020 CSN: [id number] PCP: Jesse Santana MD No chief complaint [...] of persistent nausea. 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 Jesse Santana MD. Specialty: Pediatric Endocrinology [address] [place], [place] [id number] Contact information for after-discharge care Follow-up information [...] BE BASED ON THE PRIMARY CLINICAL RECORDS. [employer] provides no warranty or guarantee of the accuracy or completeness of information in this document.
[2023-11-09 19:01] LABS: Bacteria 0 SEEN /hpf (None Seen); Color, Urine Yellow (Yellow); Glucose, Dipstick 1000 mg/dl (Normal); Leukocyte Esterase-Dipstick Negative /ul (Negative); Mucous, Urine 0 SEEN /hpf (<or=2+); Nitrite-Dipstick Negative (Negative); Occult Blood-Urine Negative /ul (Negative); Protein-Dipstick Negative (Negative); Red Blood Cells-Urine 0 SEEN /hpf (0-5); Specific Gravity, Urine 1.015 (1.002-1.030); Squamous Epithelial Cells - UA 0 SEEN /hpf (0-5); Urine Bilirubin Dipstick Negative (Negative); Urine Clarity Clear (Clear); Urine Urobilinogen Normal (Normal); White Blood Cells 0 SEEN /hpf (0-5)
[2023-11-09 19:08] LABS: Ketone-Dipstick 150 mg/dl (Negative)
[2023-11-09] MEDS: 0.9% Normal Saline (1000mL) 1,000 ML 999 ML IV (19:30)
--- OUTSIDE RECORDS SUMMARY | 2023-11-09 19:55 | XMS RPT_ITS | CCD ---
Author Name Unknown Address [address] [facility] [address] [place] [address] Organization [facility] Care Team Providers Care City Driver Name Role Phone Tank De La Torre Unavailable Unavailable Tank De La Torre Unavailable Unavailable Emerson Rosario Unavailable Emerson Rosario Primary Care Provider Hillary Mojica Primary Care Provider Jesse Santana Primary Care Provider JESSE SANTANA Primary Care Unavailable JUAN CARLOS AMBROCIO Attending Unavailable JUAN CARLOS AMBROCIO Admitting Unavailable ISABELLA BSAURTO Attending Unavaila JESSE Ochoa Primary Care Unavailable ISABELLA BASURTO Admitting Unavaila CELE Ken Attending Unavailable HILLARY MOJICA Primary Care Unavailable HILLARY MOJICA Referring Unavailable Paulette Dawn Attending Unavailable HILLARY MOJICA Primary Care Unavailable CELE ADAMS Attending Unavailable HILLARY MOJICA Primary Care Unavailable Hillary Mojica MD Primary Care Provider Medications Current Medications Medication Drug Class(es) Dates [...] Facility 11-12-2020 13:54-0500 Body Temperature 98.01 [degF] [facility] 11-12-2020 13:54-0500 Pulse (Heart Rate) 68 /min [facility] 11-12-2020 13:54-0500 Respiratory Rate 18 /min [facility] 10-10-2020 12:00-0500 BP Diastolic 79 mm[Hg] [facility] 10-10-2020 12:00-0500 BP Systolic 121 mm[Hg] [facility] 10-10-2020 12:00-0500 Pulse (Heart Rate) 96 /min [facility] 10-10-2020 12:00-0500 Pulse Oximetry 100 % [facility] 10-10-2020 11:24-0500 Respiratory Rate 16 /min [facility] 10-10-2020 09:44-0500 Respiratory rate 0 /min [facility] 10-10-2020 09:26-0500 BMI (Body Mass Index) 17.9 kg/m2 [facility] 10-10-2020 09:26-0500 Body Temperature 97.7 [degF] [facility] 10-10-2020 09:26-0500 Body weight 54.97 kg [facility] 10-10-2020 09:26-0500 Height 175.3 cm [facility] 08-08-2020 10:05-0400 BMI (Body Mass Index) 17.7 kg/m2 [facility] 08-08-2020 10:05-0400 Body Temperature 97.9 [degF] [facility] 08-08-2020 10:05-0400 Body weight 51.26 kg [facility] 08-08-2020 10:05-0400 BP Diastolic 60 mm[Hg] [facility] 08-08-2020 10:05-0400 BP Systolic 104 mm[Hg] [facility] 08-08-2020 10:05-0400 Height 170.2 cm [facility] 08-08-2020 10:05-0400 Pulse (Heart Rate) 74 /min [facility] 08-08-2020 10:05-0400 Respiratory Rate 16 /min [facility] 04-19-2020 06:38-0400 BP Diastolic 61 mm[Hg[facility] 06:38-0400 BP Systolic 118 mm[Hg] [facility] 04-19-2020 06:38-0400 Pulse (Heart Rate) 74 /min [facility] 04-19-2020 06:38-0400 Pulse Oximetry 100 % [facility] 04-19-2020 06:38-0400 Respiratory Rate 16 /min Isabellarina Aguilar [facility] 04-19-2020 05:10-0400 Respiratory rate 0 /min [facility] 04-19-2020 04:58-0400 BMI (Body Mass Index) 18.55 kg/m2 Isabella Jeff Iniguez [facility] 04-19-2020 04:58-0400 Body Temperature 98.71 [degF] Isabella Basurto [facility] 04-19-2020 04:58-0400 Body weight 55.34 kg Isabella Basurto [facility] 04-19-2020 04:58-0400 Height 172.7 cm Isabella Basurto [facility] Encounters Encounter Date Encounter Type Care Provider Facility Start: 02-08-2023 Telephone encounter Ethel Tran RN [facility] Procedures Date Procedure Procedure Detail Performing Clinician Start: 10-10-2020 Glucose [Mass/volume ] in Blood [facility] Start: 10-10-2020 Ct abdomen [...] Start: 10-10-2020 Glucose [Mass/volume ] in Blood [facility] Start: 08-08-2020 Iadna chlamydia [...] Start: 04-19-2020 Glucose [Mass/volume ] in Blood [facility] Plan of Treatment Date Care Activity Detail Author Start: 04-28-2026 Lipid panel [facility] Adult Diabetes Lipid Screening [facility] Start: 07-04-2025 DTAP/TDAP/TD VACCINE (7 - Td) DTAP/TDAP/TD VACCINE (7 - Td) [facility] Work Phone: Start: 07-04-2025 Tetanus vaccination Tetanus: Every 10yrs [facility] Start: 07-04-2025 Tetanus, diphtheria and acellular pertussis vaccination DTAP Vaccines (7 - Td) [facility] Start: 08-04-2023 PCC Adult Diabetes Urine Microalbumin [facility] Adult Diabetes Urine Microalbumin [facility] Start: 11-03-2022 Hemoglobin A1c measurement [facility] Adult Diabetes A1c [facility] Start: 07-22-2022 Influenza vaccination INFLUENZA VACCINE (#1) [facility] Start: 07-21-2022 [facility] Adult Diabetes BMP [facility] Adult Diabetes BMP [facility] Start: 04-28-2022 ENDO DIABETES LIPID PLAN ENDO DIABETES LIPID PLAN [facility] Start: 03-13-2021 Vaccination for human papillomavirus HPV VACCINE ADOL (3 - Male 3-dose series) [facility] Start: 02-11-2021 End: 02-11-2021 Clinical Support Encounter 02/11/2021 Clinical Support Encounter [facility] Start: 02-05-2021 Hepatitis A immunization [facility] Start: 2020 Hepatitis C antibody, confirmatory test Hepatitis C Screening [facility] Start: 11-12-2020 End: 11-12-2020 Clinical Support Encounter 11/12/2020 Clinical Support Encounter [facility] Start: 10-03-2020 Meningococcal conjugate vaccination Meningoccocal ACWY Vaccine (1 - 2-dose series) [facility] Start: 09-05-2020 Vaccination for human papillomavirus [facility] Start: 07-22-2020 Influenza vaccination given Sequential Influenza Vaccine (#1) [facility] Start: 07-22-2019 Influenza vaccination [facility] Start: 2018 COVID-19 Vaccine (1 of 2) COVID-19 Vaccine (1 of 2) [facility] Start: 2018 Meningococcal conjugate vaccination [facility] Work Phone: Start: 07-22-2018 Influenza vaccination INFLUENZA VACCINE (#1) [facility] Work Phone: Start: 2017 HIV screening HIV Screening [facility] Start: 2017 Vaccination for human papillomavirus HPV VACCINE ADOL (1 - Male 3-dose series) [facility] Start: 2016 Endocrinology Transition Assessment Endocrinology Transition Assessment [facility] Start: 2015 HIV screening HIV SCREENING DISCUSSION [facility] Work Phone: Start: 2014 Adolescent depression screening assessment Depression Screening (PHQ9) [facility] Start: 2013 Vaccination for human papillomavirus HPV VACCINE ADOL (1 - Male 3-dose series) [facility] Work Phone: Start: 2012 Albumin DL <= 20 mg/L (U) [Mass/Vol] Urine Microalbumin [facility] Start: 2012 Diabetic foot examination Foot Exam [facility] Start: 2012 MENB (1 of 2 - Risk Bexsero 2-dose series) MENB (1 of 2 - Risk Bexsero 2-dose series) [facility] Start: 2012 Ophthalmic examination and evaluation Ophthalmology Exam [facility] Start: 2011 HPV VACCINES (1 - Male 2-dose series) HPV VACCINES (1 - Male 2-dose series) [facility] Start: 2009 DTaP/Tdap/Td VACCINES (1 - Tdap) DTaP/Tdap/Td VACCINES (1 - Tdap) [facility] Start: 2008 Pneumococcal vaccination PNEUMOCOCCAL VACCINE (1 - PCV) [facility] Start: 2005 History and physical examination, annual for health maintenance Wellness Visit [facility] Start: 2003 Hepatitis A immunization HEP A VACCINE (1 of 2 - 2-dose series) [facility] Work Phone: Start: 2003 MMR VACCINES (1 of 1 - Standard series) MMR VACCINES (1 of 1 - Standard series) [facility] Start: 2003 VARICELLA VACCINES (1 of 2 - 2-dose childhood series) VARICELLA VACCINES (1 of 2 - 2-dose childhood series) [facility] Start: 06-22-2003 COVID-19 Vaccine (#1) COVID-19 Vaccine (#1) [facility] Start: 2002 Diabetic foot examination [facility] Adult Diabetes Foot Exam [facility] Start: 2002 Glaucoma screening [facility] Adult Diabetes Eye Exam [facility] Start: 2002 HbA1c (Bld) [Mass fraction] A1C [facility] Start: 2002 HEPATITIS B VACCINES (1 of 3 - 3-dose series) HEPATITIS B VACCINES (1 of 3 - 3-dose series) [facility] CHLAMYDIA/GONOCOCCUS, DONAVON CHLAMY ALMA/GONOCOCCUS, DONAVON Microbiology Today Has multiple sexual partners 08/08/2020 11:30 AM EDT [facility] CT Abdomen Pelvis Wi th IV Contrast Only CT Abdomen Pelvis With IV Contrast Only Imaging [facility] 10/10/2020 12:55 PM EST [facility] CT of head without contrast CT Head Or Brain Without Contrast Imaging [facility] 10/10/2020 12:55 PM EST [facility] Screening test visua l acuity quantitative bilat SD VISUAL SCREENING TEST, BILAT SD - OFFICE PERFORMED Routine Well adolescent visit Ordered: 08/08/2020 [facility] Immunizations Immunization Date Immunization Notes Care Provider Vita johnson 11-12-2020 HPV, unspecified formulation [facility] 11-12-2020 Human Papillomavirus 9-valent vaccine [facility] 10-12-2020 influenza, injectabl e, quadrivalent, preservative free [facility] Nurse [facility] 10-12-2020 influenza virus vacc ine, unspecified formulation Ethel Tran RN [facility] 08-08-2020 hepatitis A vaccine, pediatric/adolescent dosage, 2 dose schedule [facility] 08-08-2020 Human Papillomavirus 9-valent vaccine [facility] 08-08-2020 meningococcal oligosaccharide (groups A, C, Y and W-135) diphtheria toxoid conjugate vaccine (MCV4O) [facility] 08-08-2020 meningococcal vaccin e of unknown formulation and unknown serogroups [facility] 08-08-2020 hepatitis A vaccine, unspecified formulation; Translations: [HEPATITIS A VACCINE PED/ADOLES 0.5ML IM] [facility] 08-08-2020 hepatitis A and hepatitis B vaccine Juan Carlos Ambrocio [facility] 08-08-2020 HPV, unspecified formulation [facility] 10-04-2017 influenza, seasonal, injectable, preservative free Ethel Tran RN [facility] 10-04-2017 influenza virus vacc ine, unspecified formulation [facility] Work Phone: 11-13-2015 meningococcal oligosaccharide (groups A, C, Y and W-135) diphtheria toxoid conjugate vaccine (MCV4O) [facility] Work Phone: 07-04-2015 tetanus toxoid, redu deisy diphtheria toxoid, and acellular pertussis vaccine, adsorbed [facility] Work Phone: 04-24-2008 diphtheria, tetanus toxoids and acellular pertussis vaccine [facility] Work Phone: 04-24-2008 measles, mumps and rubella virus vaccine [facility] Work Phone: 04-24-2008 poliovirus vaccine, inactivated [facility] Work Phone: 04-24-2008 varicella virus vaccine [facility] Work Phone: 06-30-2004 diphtheria, tetanus toxoids and acellular pertussis vaccine [facility] Work Phone: 06-30-2004 haemophilus influenz ae type b vaccine, conjugate unspecified formulation [facility] Work Phone: 06-30-2004 poliovirus vaccine, inactivated [facility] Work Phone: 12-27-2003 measles, mumps and rubella virus vaccine [facility] Work Phone: 12-27-2003 pneumococcal conjuga te vaccine, 7 valent [facility] Work Phone: 12-27-2003 varicella virus vaccine [facility] Work Phone: 06-25-2003 diphtheria, tetanus toxoids and acellular pertussis vaccine [facility] Work Phone: 06-25-2003 haemophilus influenz ae type b vaccine, conjugate unspecified formulation [facility] Work Phone: 06-25-2003 hepatitis B vaccine, pediatric or pediatric/adolescent dosage [facility] Work Phone: 06-25-2003 pneumococcal conjuga te vaccine, 7 valent [facility] Work Phone: 04-27-2003 hepatitis B vaccine, pediatric or pediatric/adolescent dosage [facility] 04-26-2003 diphtheria, tetanus toxoids and acellular pertussis vaccine [facility] Work Phone: 04-26-2003 haemophilus influenz ae type b vaccine, conjugate unspecified formulation [facility] Work Phone: 04-26-2003 pneumococcal conjuga te vaccine, 7 valent [facility] Work Phone: 04-26-2003 poliovirus vaccine, inactivated [facility] Work Phone: 02-05-2003 diphtheria, tetanus toxoids and acellular pertussis vaccine [facility] Work Phone: 02-05-2003 haemophilus influenz ae type b vaccine, conjugate unspecified formulation [facility] Work Phone: 02-05-2003 hepatitis B vaccine, pediatric or pediatric/adolescent dosage [facility] Work Phone: 02-05-2003 pneumococcal conjuga te vaccine, 7 valent [facility] Work Phone: 02-05-2003 poliovirus vaccine, inactivated [facility] Work Phone: 2002 hepatitis B vaccine, pediatric or pediatric/adolescent dosage [facility] Work Phone: Payers Date Payer Category Payer Unknown [facility] ANTH BASIC [id number] 2021-Present [address] [place] [address] Commercial [id number] 2016 Unknown [id number] 2015 Private Health Insurance AETNA AETNA CHOICE POS/POSII/PREMIER CARE/PREMIER CARE PLUS [id number] 2015-Present [id number] 2014 Private Health Insurance [id number] 2014 Private Health Insurance 2002 Unknown [facility] [id number] 2002-Present [id number] 2002 Unknown [id number] 2002 Unknown [id number] 2002 Unknown [id number] 2002 Unknown [id number] 1971 Unknown [id number] 1971 Unknown [id number] Private Health Insurance [id number] Private Health Insurance AETNA SRC/AETNA AFF HEALTH CH/PPO INDEM xxxxxxxxxxxx Effective for all dates xxxxxxxxxxxx [id number] Social History Date Type Detail Facility Start: 11-28-2018 End: 10-10-2020 Tobacco smoking status NHIS Never smoker [facility] Work Phone: Start: 2002 Sex Assigned At Not on file [facility] Work Phone: Start: 11-28-2018 Alcohol intake No [facility] Start: 08-08-2020 End: 07-21-2021 Tobacco use and exposure Never used [facility] Start: 08-08-2020 End: 11-12-2020 Alcohol intake Current non-drinker of alcohol (finding) [facility] Start: 10-10-2020 Alcohol intake Lifetime non-d petr (finding) [facility] Start: 10-10-2020 History SDOH Alcohol Frequency 1 [facility] Exposure to SARS-CoV -2 (event) Not sure [facility] Start: 07-21-2021 [facility] Start: 08-04-2022 Alcohol intake Defer [facility] Medical Equipment Procedure Code Equipment Code Equipment Origin al Text Equipment Identifier Dates Use as directed to test blood sugar 6 times daily and as needed. [id number] Start: 01-21-2020 Use 4 to 6 times daily and as needed [id number] Start: 03-04-2020 Use as directed for injections up to 6x day [id number] Start: 03-04-2020 Use as directed 6 times daily. [id number] Start: 08-04-2022 Use as directed for injections up to 6x day [id number] Start: 08-04-2022 Monitor urine ketones prn when glucose above 300mg/dl and sick days [id number] Start: 08-04-2022 Use 4-6x/day and prn [id number] Star t: 08-04-2022 Use as directed to test blood sugar 6 times daily and as needed. [id number] Start: 02-03-2021 Use 4 to 6 times daily and as needed [id number] Start: 02-03-2021 Telephone encounter Note 02-08-2023 Telephone Encounter - Cele Adams APN - 02/08/2023 10:35 AM EDT Note Date & Type Note Facility 02-08-2023 Telephone encounter Note Called and spoke to pharmacy on file where rx had been sent from last visit. Per [facility] pharmacy there records show that novolog/aspart rx from 07/2022 was changed to fiasp under this provider's name. No documentation in pt chart that this provider approved change/rx fiasp. Per pharmacy rx were transferred to another pharmacy in [place]. No further action at this time. Per RN note below, requested pt to call back to inquire about f/u; if seen by outside provider or needs [facility] appt, if latter will be scheduled with Dr. [place], adult transition clinic. [facility] Note 02-08-2023 Telephone Encounter - Cele Adams APN - 02/08/2023 10:35 AM EDTTelephone Encounter - Ethel Tran RN - 02/08/2023 9:58 AM EDT Note Date & Type Note Facility 02-08-2023 Miscellaneous Notes Formattin g of this note might be different from the original. Called and spoke to pharmacy on file where rx had been sent from last visit. Per [facility] pharmacy there records show that novolog/aspart rx from 07/2022 was changed to fiasp under this provider's name. No documentation in pt chart that this provider approved change/rx fiasp. Per pharmacy rx were transferred to another pharmacy in [place]. No further action at this time. Per RN note below, requested pt to call back to inquire about f/u; if seen by outside provider or needs [facility] appt, if latter will be scheduled with [...] PA request deleted. documented in this encounter [facility] Telephone encounter Note 02-08-2023 Telephone Encounter - [...] the pharmacy regarding this. PA request deleted. [facility] Summary Purpose Family History No Family History Records FoundNo Family History Records FoundNo Family History Records FoundNo Family History Records Found Advance Directives Documents on File Type Date Recorded Patient Sign Board Erector Expl anation Advance Directives and Livin g [place] 10/10/2020 5:24 AM Documents on File Type Date Recorded Patient Sign Board Erector Expl anation Advance Directives and Livin g [place] 04/19/2020 5:24 AM Reason for Referral Status Reason Specialty Diagnoses / Procedures Referred By Contact Referred To Contact New Request Diagnoses Generalized anxiety disorder Tiffanie Pleitez, CHELSIE-AD OPERATIONS COORDINATOR [address] [place] [address] History of Present Illness * Tiffanie Pleitez [...] grade School attended: [employer] Had been attending [employer] but transferred back to [employer] this week School performance: GPA 3.4 School attendance: no problems Activities: Sports :No Music:choir Community (4-H, black oxide operator, etc): No Work: Will be working at [employer] Peer interaction: Has 1-2 good friends that [...] his blood sugar daily--Sees Dr. Santana at [facility]; Anxiety-feels pressure from changing schools and pressure at home; He did see a Hoahaoism counselorseveral years ago, but did not feel [...] meal and at bedtime. Strongly recommend contacting [facility] Endocrinology for an appointment. Also strongly recommend yearly ophthalmology exam UA for GC and CT sent to [facility] Discussed the importance of counseling along with medication management. Since Sal will be graduating from high school in 8 months and no longer a patient in our practice will refer to behavioral health so that his anxiety can be managed by the same provider once he graduates. Referral made to [facility]. 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 -If guns in home, keep locked [...] presents in office for 19 y.o. y.o. 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 Father has concerns with [...] through Care Everywhere. * Nausea and Vomiting (Mauritanian) * Hypoglycemia in Diabetes: General Info (Mauritanian) documented in this encounter Additional Source Comments (unrecognized sect ion and content) No Status Records FoundNo Status Records FoundNo Status Records FoundNo Status Records Found INFORMATION SOURCE (unrecogn ized section and content) DATE CREATED AUTHOR AUTHOR'S ORGANIZ ATION 10/13/2020 [facility] DATE CREATED AUTHOR AUTHOR'S ORGANIZ ATION 11/13/2020 [facility] DATE CREATED AUTHOR AUTHOR'S ORGANIZ ATION 10/11/2022 [facility] Reason for Visit (unrecogniz ed section [...] redrawn. Lab called to redraw lab. Called [facility] @ [phone] and spoke to Bridgette about getting pt transferred. Call given to Dr Ambrocio at this time. [facility] ED Attending Note: NAME: Sal Lo 19 y.o. CSN: [id number] PCP: Jesse Santana MD History: Chief Complaint: [...] MCAD (medium-chain acyl-CoA dehydrogenase deficiency) ([facility]) Type 1 diabetes ([facility]) PMSx: History reviewed. No pertinent surgical [...] file Gets together: Not on file Attends mandaeism service: Not on file Active member of [...] Colorless, Yellow Clarity, Urine Clear Clear Specific Valentine 1.020 1.005 - 1.025 pH, Urine 5.0 [...] abnormality within the limitation of the study. [employer] Workstation ID: [id number] CT Head Or Brain Without Contrast Preliminary Result CT head: No acute intracranial findings. CT abdomen and pelvis: Limited study due to motion artifact. Marked hepatic steatosis. No evidence of bowel obstruction. The appendix could not be confidently identified. No acute abdominopelvic abnormality within the limitation of the study. [employer] Workstation ID: [id number] Procedures: Procedures Critical Care [...] ER physician, endocrinology and genetics over at [facility], they recommended ammonia level, 9 units [...] l-carnitine prior to transfer. I have notified [facility] of this CT scans did return and were negative for acute findings. Patient was transferred to [facility] for further management, glucose was downtrending and mental status was slowly improving, neuro exam showed no focal deficit he still 5-5 strength bilaterally Clinical Impression: 1. Ketosis (HCC) 2. Type 1 diabetes mellitus with ketoacidosis without coma (HCC) 3. Altered mental status, unspecified altered mental status type Juan Carlos Ambrocio MD [facility] Emergency Department (Please note that portions [...] light if feels nausea ED PROVIDER NOTE [facility] EMERGENCY DEPARTMENT NAME: Sal Lo AGE: 19 y.o. : 2000 VISIT DATE: 04/19/2020 CSN: [id number] PCP: Jesse Santana MD No chief complaint [...] of persistent nausea. History provided by: Patient medical office rep used: No No past medical history on [...] file Gets together: Not on file Attends mandaeism service: Not on file Active member of [...] Colorless, Yellow Clarity, Urine Clear Clear Specific Valentine 1.004 (L) 1.005 - 1.025 pH, Urine [...] Jesse Santana MD. Specialty: Pediatric Endocrinology [address] [place], [place] [id number] Contact information for after-discharge care Follow-up information [...] BE BASED ON THE PRIMARY CLINICAL RECORDS. [employer] provides no warranty or guarantee of the accuracy or completeness of information in this document.
[2023-11-09 20:04] LABS: Anion Gap 17 (5-15); BUN 15 mg/dL (7-18); BUN/Creat Ratio 13.4 RATIO (10-20); Calcium,Total 7.9 mg/dL (8.5-10.1); Chloride 107 mmol/L (98-107); Creatinine, Serum 1.12 mg/dL (0.70-1.30); EST Glomerular Filtration Rate 88 mL/min (>60); Est Glom Filt Rate - Afr Amer 107 mL/min (>60); Estimated Creatinine Clearance 86.71 ml/min; Glucose 428 mg/dL (74-106); Magnesium 1.6 mg/dL (1.6-2.6); Phosphorus 2.4 mg/dL (2.5-4.9); Potassium 3.9 mmol/L (3.5-5.1); Sodium Level 138 mmol/L (136-145)
[2023-11-09] MEDS: KCL 20MEQ in D5.45NS 20 MEQ/1,000 ML IV.SOLN. 150 MEQ IV (21:04)
[2023-11-09 22:57] LABS: Bedside Glucose 165 mg/dL (74-106)
[2023-11-09 22:57] LABS: Bedside Glucose 190 mg/dL (74-106)
[2023-11-09 22:57] LABS: Bedside Glucose 400 mg/dL (74-106)
[2023-11-09 22:57] LABS: Bedside Glucose 150 mg/dL (74-106)
[2023-11-10] VITALS (13 sets, daily range): BP systolic 99–134; BP diastolic 64–82; PULSE 70–108; RESP 11–18; TEMP 36.4–36.5; O2SAT 97–100; BMI 19.5
[2023-11-10] MEDS: Ondansetron 4 MG/2 ML Vial IV (00:07)
[2023-11-10] MEDS: Acetaminophen 325 MG Tablet 650 MG PO (00:07)
--- NOTE | 2023-11-10 00:22 | NURSING ---
Patient refusing to have a second IV put in stating I wasn't happy about the first one. If you have to do that, you can check me out. Will continue to use the single IV for fluids, insulin and blood draws.
[2023-11-10 00:59] LABS: Bedside Glucose 219 mg/dL (74-106)
[2023-11-10 00:59] LABS: Bedside Glucose 187 mg/dL (74-106)
[2023-11-10 01:16] LABS: Anion Gap 13 (5-15); BUN 10 mg/dL (7-18); BUN/Creat Ratio 10.4 RATIO (10-20); Calcium,Total 7.9 mg/dL (8.5-10.1); Chloride 111 mmol/L (98-107); Creatinine, Serum 0.96 mg/dL (0.70-1.30); EST Glomerular Filtration Rate 105 mL/min (>60); Est Glom Filt Rate - Afr Amer 127 mL/min (>60); Estimated Creatinine Clearance 101.16 ml/min; Glucose 194 mg/dL (74-106); Magnesium 1.8 mg/dL (1.6-2.6); Phosphorus 2.6 mg/dL (2.5-4.9); Potassium 3.8 mmol/L (3.5-5.1); Sodium Level 143 mmol/L (136-145)
[2023-11-10 03:08] LABS: Bedside Glucose 109 mg/dL (74-106)
[2023-11-10 03:08] LABS: Bedside Glucose 100 mg/dL (74-106)
[2023-11-10] MEDS: KCL 20MEQ in D5.45NS 20 MEQ/1,000 ML IV.SOLN. 150 MEQ IV (03:45)
[2023-11-10 04:03] LABS: Bedside Glucose 176 mg/dL (74-106)
[2023-11-10 04:45] LABS: Absolute Lymphocyte Count 0.92 X10^3/uL (0.83-4.51); Absolute Neutrophil Count 6.5 X10^3/uL (2.0-7.7); Basophil# 0.04 X10^3/uL; Basophil% 0.5 % (0-1); Eosinophil# 0.06 X10^3/uL; Eosinophils% 0.7 % (0-5); Hematocrit 38.8 % (40-54); Hemoglobin 12.5 g/dL (13.0-16.5); Lymphocyte # 0.92 X10^3/ul (0.83-4.51); Lymphocyte % 11.3 % (19-41); Mean Corp Hgb Conc 32.2 g/dL (32-36); Mean Corpuscular Hgb 29.6 pg (27.0-32.0); Mean Corpuscular Volume 91.9 fL (80-94); Monocyte# 0.55 X10^3/uL; Monocyte% 6.8 % (0-10); NRBC Flagged by Analyzer 0 % (0-5); Neutrophil # 6.51 X10^3/uL (2.7-7.7); Neutrophil % 80.2 % (47-70); Platelet Count 252 K/mm3 (150-450); Red Blood Count 4.22 M/mm3 (4.6-6.2); White Blood Count 8.1 K/mm3 (4.4-11.0)
[2023-11-10 05:02] LABS: Anion Gap 11 (5-15); BUN 7 mg/dL (7-18); Calcium,Total 8.1 mg/dL (8.5-10.1); Chloride 111 mmol/L (98-107); Creatinine, Serum 0.78 mg/dL (0.70-1.30); EST Glomerular Filtration Rate 134 mL/min (>60); Est Glom Filt Rate - Afr Amer 162 mL/min (>60); Glucose 168 mg/dL (74-106); Potassium 3.5 mmol/L (3.5-5.1); Sodium Level 143 mmol/L (136-145)
[2023-11-10 05:07] LABS: Magnesium 1.9 mg/dL (1.6-2.6); Phosphorus 2.8 mg/dL (2.5-4.9)
[2023-11-10] MEDS: 0.9% Saline Lock 10 ML Syringe IV (06:06)
[2023-11-10] MEDS: Insulin Glargine-YFGN 100 UNIT/ML Pen 12 UNIT SC (06:43)
[2023-11-10 07:54] LABS: Bedside Glucose 242 mg/dL (74-106)
[2023-11-10] MEDS: Insulin Lispro 100 UNIT/ML INSULN.PEN SC (08:33)
--- NOTE | 2023-11-10 09:15 | DCINST_ITS ---
Discharge Instructions Diet Discharge Diet: Carb Control Diet Activity Discharge Activity: Return to Normal Activity Dressing / Incision Call your doctor if you observe: Fever of 101 or Higher, Shortness of breath, Dizziness, Fainting spells, Swelling in the ankles, Chest pain and Increased palpitations (irregular heartbeat) Follow Up Care Test Results: Test results from this visit will be discussed in further detail at your follow- up appointment, if applicable. Discharge Plan Admission Admit Date/Time: 11/09/23 18:50 Attending Provider: Martin Hankins Primary Care Provider: Chaya Varghese NP Consulting Providers: Rosemarie Anders Discharge Orders/Prescriptions Prescriptions: Continued (DME) FreeStyle [place] 3 Sensor Device See Rx Instructions .Route Qty: 2 5RF Rx Instructions: 1 sensor 14 days insulin aspart U-100 [Novolog FlexPen U-100 Insulin] 100 unit/mL (3 mL) Insulin Pen 8 unit SUBCUT TID insulin glargine [Lantus Solostar U-100 Insulin] 100 unit/mL (3 mL) insulin pen 18 unit SUBCUT QHS Referrals / Follow Up: Chaya Varghese CERTIFIED ETHICAL HACKER, CERTIFIED ETHICAL HACKER-C [Primary Care Provider] - Within 1 Week Disposition Disposition (needs filled in before D/C Order can be placed): Home, Self Care
--- NOTE | 2023-11-10 11:15 | CASEMGMT ---
ANMOL FELTON NOTE: Pt was just admitted 10/24 w/DKA and discharged home 10/24 w/Rx for Insulin glargine pen (Lantus) that was sent to [facility] pharmacy. Pt also to f/u with PCP and Dr Peck in [address] Calderón in 3 months. See this ANMOL FELTON assessment 10/24/23. ANMOL FELTON to room. Pt resting in bed. Awake/alert/oriented and willing to discuss discharge planning w/ANMOL FELTON. Pt states he did case picker the Insulin glargine @ [facility] after last admission. He states he is down to having only 1/3 vial left of Humalog and is not sure if he has any refills remaining. ANMOL FELTON placed call to [facility] who states pt has one refill remaining. Request made for them to fill this script. Pt made aware and states he will case picker from [facility]. He states he will f/u with Dr Peck to get more refills. He reports having all supplies needed for his glucometer. Pt states he has not made any appts yet since last admission. He was reminded of all 3 that need made. While ANMOL FELTON @ bedside, pt got on his phone and placed a request w/PCP office/Chaya Varghese CREDIT COLLECTIONS REP for f/u appt w/in the next week. He is awaiting response. Pt states he will call and schedule appts w/Dr Peck and Dr Calderón as well and denies needing assistance at this time. Pt states he is not sure what happened to cause readmission to the hospital. 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 He reports he had fallen asleep and only missed taking one dose of Lantus. He states sometimes he will take the Lantus in the middle of his shift and states, I may have to start doing that from now on so I don't forget or fall asleep when I get home . He also stated, I'm going to have to set alarm reminders on my phone . Pt reports he feels he has a good understanding of what he needs to do but it's mostly just a matter of doing it/applying it. He states he is on ADHD medication and d/t only able to get a 30-day Rx for this, he often will not f/u with getting new Rx and therefore feels he does not focus as well and gets distracted when not on his medications. He reports good family support and from his sig other, Layla (whom he calls his , but states they are not legally ). He states he plans to let them know that he needs reminders with taking his medications. [facility] referral was made last admission and per Isauro note from [facility], she has made multiple attempts to reach pt w/out success. ANMOL FELTON discussed this w/pt. Pt states that if it is a # he does not know that he does not answer it, and states, I forgot you had set that up. I'm going to have to make sure to answer my phone next time . He voices much interest in [facility]. ANMOL FELTON placed call to Isauro @ [facility] and made aware pt has been readmitted. She provided this ANMOL FELTON her cell # to give to pt so he can contact her next week on Tue, when she returns to work. Pt made aware and provided w/this # and made aware he can text Isauro via this # as well. He voices appreciation. He placed a reminder in his phone for next Tue to contact her. Pt states a roommate is now living w/him and Layla and his roommate drives. He plans to contact roommate to take him home today once he gets discharged. Pt states besides his ADHD medicine and Humalog (as noted above), he has all other medications and supplies needed. He denies having further discharge planning needs or concerns and thanked ANMOL FELTON for assistance. Nanda QUINONES RN, CM
--- NOTE | 2023-11-10 13:15 | PCM.DC.SUM ---
Providers Date of Admission: 11/09/23 Primary Care Physician: TERRELL Cortez Reason For Visit: DKA Diagnosis Discharge Diagnosis (1) Diabetic ketoacidosis: Status: Acute Code(s): E11.10 - Type 2 diabetes mellitus with ketoacidosis without coma (2) Type 1 diabetes mellitus: Status: Acute Code(s): E10.9 - Type 1 diabetes mellitus without complications (3) Fatty liver disease, nonalcoholic: Status: Acute Code(s): K76.0 - Fatty (change of) liver, not elsewhere classified (4) High anion gap metabolic acidosis: Status: Acute Code(s): E87.29 - Other acidosis (5) Noncompliance: Status: Acute Code(s): Z91.199 - Patient's noncompliance with other medical treatment and regimen due to unspecified reason (6) Leukocytosis: Status: Acute Code(s): D72.829 - Elevated white blood cell count, unspecified (7) Abdominal pain: Status: Acute Code(s): R10.9 - Unspecified abdominal pain (8) Nausea and vomiting: Status: Acute Code(s): R11.2 - Nausea with vomiting, unspecified Medications at Discharge Home Medications blood-glucose sensor (FreeStyle [place] 3 Sensor device) #2 ea 08/25/23 insulin aspart U-100 100 unit/mL (3 mL) subcutaneous pen (Novolog FlexPen U-100 Insulin aspart) 8 unit subcut TID DIABETES 10/24/23 insulin glargine 100 unit/mL (3 mL) subcutaneous pen (Lantus Solostar U-100 Insulin) 18 unit subcut QHS DIABETES 11/09/23 Hospital Course Operations None Procedures None Summary of Care Provided Minutes Spent on Discharge: 34 Hospital Course: Per HPI: MACHELLE CALIX, is a 22 M who presented to the emergency department at [facility] on 11/09/2023 due to abdominal pain, nausea, and vomiting that began on the day of presentation. Patient reported it began rather suddenly and had been constant all day. He described the pain as tightness and burning and is diffuse across his entire abdomen. Patient reported he gets better when he is able to drink water. He has a history of diabetes and had a recent admission for DKA with rather rapid resolution. He denies any diarrhea, melena, hematochezia or coffee-ground emesis. He has severe thirst and polyuria. I asked him about compliance with his insulin initially he reported complete compliance however on further questioning he states that he does miss basal insulin sometimes but is unable to tell me how frequently. Vital signs on presentation showed temperature of 97.3, heart rate 97, blood pressure 140/87, respiratory rate 18 oxygen saturations are 97% on room air. CBC showed a mild leukocytosis with a white count of 11.2 and a left shift with an 82.8% neutrophilia however I believe this is likely related to dehydration with his DKA. Chemistry panel showed hyponatremia that is pseudohyponatremia due to a blood sugar of 615, potassium was 4.9, chloride 95, serum bicarbonate is 15 and anion gap is 22. BUN is 15 and serum creatinine is 1.17. He has chronically elevated transaminases and his bilirubin was 1.5, AST 204, ALT was 229 and alk phos was 136. He has been referred to GI previously and has not yet followed up. His lipase was normal. Acetone level serum was moderate. He was given IV fluids, antiemetics and started on an insulin drip in the emergency department and request for admission was made. Hospital Course: 1. DKA with type 1 diabetes?22-year-old male with type 1 diabetes presented to the hospital with DKA. He was saying that he got off of his ADHD meds he was unable to focus on doing his insulin appropriately. 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 He did express understanding the risk and benefits of going home and still would like to go home today. All of his electrolytes derangements resolved on discharge. Of note he continues to have an elevated AST and ALT as well as bilirubin, however this is a little bit better than his previous admission this month and at that time he did have a referral for gastroenterology which she was encouraged to follow-up with. He did improve faster than anticipated. Physical Exam Narrative General: Alert, Oriented x3, Cooperative, No apparent distress HEENT: Atraumatic, PERRLA, EOMI, Normocephalic Oral: Moist Mucosa Neck: Supple, No JVD Lungs: Clear to auscultation, Normal air movement, No rhonchi, No wheeze, No rales Cardiovascular: Regular rate, Regular Rhythm, Normal S1, Normal S2, No murmurs Abdomen: Soft, Non Tender, Non-Distended, No Hepato-splenomegaly Extremities: No edema, Capillary Refill Less than 3 Seconds Skin: No rashes, No breakdown Musculoskeletal: No Tenderness to Palpation of Joints or Extremities Neurological: Cranial nerves II-XII grossly intact, Motor Exam 5/5 strength throughout, Sensory exam intact to light touch and pain Psych/Mental Status: Normal Affect, Appropriate Weight / BMI Weight Weight: 128 lb 15.527 oz Body Mass Index (BMI) 19.5 ABG / Lab / Microbiology Data 11/10/23 04:32 11/10/23 04:32 Laboratory: Laboratory Results - last 24 hr 11/09/23 17:30: WBC 11.2 H, RBC 4.93, Hgb 14.4, Hct 45.7, MCV 92.7, MCH 29.2, MCHC 31.5 L, RDW Std Deviation 44.3 H, RDW Coeff of Violeta 13.0, Plt Count 339, MPV 9.9, Immature Gran % (Auto) 0.600, Neut % (Auto) 82.8 H, Lymph % (Auto) 10.7 L, [place] % (Auto) 4.3, Eos % (Auto) 1.2, Baso % (Auto) 0.4, Absolute Neuts (auto) 9.3 H, Absolute Lymphs (auto) 1.20, Nucleated RBC % 0, Sodium 132 L, Potassium 4.9, Chloride 95 L, Carbon Dioxide 15.0 L, Anion Gap 22 H, BUN 15, Creatinine 1.17, Estim Creat Clear Calc 82.91, Est GFR (MDRD) Af Amer 101, Est GFR (MDRD) Non-Af 84, BUN/Creatinine Ratio 12.8, Glucose 615 H*, Calcium 9.7, Total Bilirubin 1.50 H, AST 204 H, ALT 229 H, Alkaline Phosphatase 136 H, Total Protein 7.5, Albumin 4.1, Globulin 3.4, Albumin/Globulin Ratio 1.2, Lipase 19, Acetone Level MODERATE H 11/09/23 18:56: Urine Color Yellow, Urine Clarity Clear, Urine pH 5.0, Ur Specific [place] 1.015, Urine Protein Negative, Urine Glucose (UA) 1000 H, Urine Ketones 150 A*, Urine Occult Blood Negative, Urine Nitrite Negative, Urine Bilirubin Negative, Urine Urobilinogen Normal, Ur Leukocyte Esterase Negative, Urine RBC 0 SEEN, Urine WBC 0 SEEN, Ur Squamous Epith Cells 0 SEEN, Urine Bacteria 0 SEEN, Urine Mucus 0 SEEN 11/09/23 19:20: POC Glucose 400 H 11/09/23 19:33: Sodium 138, Potassium 3.9, Chloride 107, Carbon Dioxide 14.0 L, Anion Gap 17 H, BUN 15, Creatinine 1.12, Estim Creat Clear Calc 86.71, Est GFR (MDRD) Af Amer 107, Est GFR (MDRD) Non-Af 88, BUN/Creatinine Ratio 13.4, Glucose 428 H, Calcium 7.9 L, Phosphorus 2.4 L, Magnesium 1.6 11/09/23 20:41: POC Glucose 190 H 11/09/23 21:39: POC Glucose 165 H 11/09/23 22:37: POC Glucose 150 H 11/09/23 23:38: POC Glucose 219 H 11/10/23 00:32: Sodium 143, Potassium 3.8, Chloride 111 H, Carbon Dioxide 19.0 L, Anion Gap 13, BUN 10, Creatinine 0.96, Estim Creat Clear Calc 101.16, Est GFR (MDRD) Af Amer 127, Est GFR (MDRD) Non-Af 105, BUN/Creatinine Ratio 10.4, Glucose 194 H, Calcium 7.9 L, Phosphorus 2.6, Magnesium 1.8 11/10/23 00:39: POC Glucose 187 H 11/10/23 01:51: POC Glucose 109 H 11/10/23 02:50: POC Glucose 100 11/10/23 03:41: POC Glucose 176 H 11/10/23 04:32: WBC 8.1, RBC 4.22 L, Hgb 12.5 L, Hct 38.8 L, MCV 91.9, MCH 29.6, MCHC 32.2, RDW Std Deviation 44.0 H, RDW Coeff of Violeta 13.0, Plt Count 252, MPV 9.0, Immature Gran % (Auto) 0.500, Neut % (Auto) 80.2 H, Lymph % (Auto) 11.3 L, [place] % (Auto) 6.8, Eos % (Auto) 0.7, Baso % (Auto) 0.5, Absolute Neuts (auto) 6.5, Absolute Lymphs (auto) 0.92, Nucleated RBC % 0, Sodium 143, Potassium 3.5, Chloride 111 H, Carbon Dioxide 21.0, Anion Gap 11, BUN 7, Creatinine 0.78, Estim Creat Clear Calc 124.50, Est GFR (MDRD) Af Amer 162, Est GFR (MDRD) Non-Af 134, BUN/Creatinine Ratio 9.0 L, Glucose 168 H, Calcium 8.1 L, Phosphorus 2.8, Magnesium 1.9 11/10/23 05:25: Acetone Level NEGATIVE 11/10/23 07:36: POC Glucose 242 H D/C Instructions Discharge Diet: Carb Control Diet Call your doctor if you observe: Fever of 101 or Higher, Shortness of breath, Dizziness, Fainting spells, Swelling in the ankles, Chest pain and Increased palpitations (irregular heartbeat) Meaningful Use Info Meaningful Use Diagnoses (Choose all that apply): None applicable Discharge Plan Admission Admit Date/Time: 11/09/23 18:50 Attending Provider: Martin Hankins Primary Care Provider: Chaya Varghese NP Consulting Providers: Rosemarie Anders Discharge Orders/Prescriptions Prescriptions: Continued (DME) FreeStyle [place] 3 Sensor Device See Rx Instructions .Route Qty: 2 5RF Rx Instructions: 1 sensor 14 days insulin aspart U-100 [Novolog FlexPen U-100 Insulin] 100 unit/mL (3 mL) Insulin Pen 8 unit SUBCUT TID insulin glargine [Lantus Solostar U-100 Insulin] 100 unit/mL (3 mL) insulin pen 18 unit SUBCUT QHS Referrals / Follow Up: Chaya Varghese REGISTRATION COORDINATOR, REGISTRATION COORDINATOR-C [Primary Care Provider] - Within 1 Week Disposition Disposition (needs filled in before D/C Order can be placed): Home, Self Care Charges/Coding Visit Charges Inpatient E&M: 44076 Disch Hosp >30min
--- OUTSIDE RECORDS SUMMARY | 2023-11-10 16:29 | XMS RPT_ITS | CCD ---
Author Name Unknown Address [address] [facility] [address] [place] [address] Organization [facility] Care Team Providers Care Assembly Line Supervisor Name Role Phone Tank De La Torre Unavailable Unavailable Tank De La Torre Unavailable Unavailable Emerson Rosario Unavailable Emerson Rosario Primary Care Provider [phone] Hillary Mojica Primary Care Provider [phone] Jesse Santana Primary Care Provider JESSE SANTANA Primary Care Unavailable JUAN CARLOS AMBRCOIO Attending Unavailable JUAN CARLOS AMBROCIO Admitting Unavailable ISABELLA BASURTO Attending Unavaila JESSE Ochoa Primary Care Unavailable ISABELLA BASURTO Admitting Unavaila CELE Ken Attending Unavailable HILLARY OMJICA Primary Care Unavailable HILLARY MOJICA Referring Unavailable [...] Facility 11-12-2020 13:54-0500 Body Temperature 98.01 [degF] [facility] 11-12-2020 13:54-0500 Pulse (Heart Rate) 68 /min [facility] 11-12-2020 13:54-0500 Respiratory Rate 18 /min [facility] 10-10-2020 12:00-0500 BP Diastolic 79 mm[Hg] [facility] 10-10-2020 12:00-0500 BP Systolic 121 mm[Hg] [facility] 10-10-2020 12:00-0500 Pulse (Heart Rate) 96 /min [facility] 10-10-2020 12:00-0500 Pulse Oximetry 100 % [facility] 10-10-2020 11:24-0500 Respiratory Rate 16 /min [facility] 10-10-2020 09:44-0500 Respiratory rate 0 /min [facility] 10-10-2020 09:26-0500 BMI (Body Mass Index) 17.9 kg/m2 [facility] 10-10-2020 09:26-0500 Body Temperature 97.7 [degF] [facility] 10-10-2020 09:26-0500 Body weight 54.97 kg [facility] 10-10-2020 09:26-0500 Height 175.3 cm [facility] 08-08-2020 10:05-0400 BMI (Body Mass Index) 17.7 kg/m2 [facility] 08-08-2020 10:05-0400 Body Temperature 97.9 [degF] [facility] 08-08-2020 10:05-0400 Body weight 51.26 kg [facility] 08-08-2020 10:05-0400 BP Diastolic 60 mm[Hg] [facility] 08-08-2020 10:05-0400 BP Systolic 104 mm[Hg] [facility] 08-08-2020 10:05-0400 Height 170.2 cm [facility] 08-08-2020 10:05-0400 Pulse (Heart Rate) 74 /min [facility] 08-08-2020 10:05-0400 Respiratory Rate 16 /min [facility] 04-19-2020 06:38-0400 BP Diastolic 61 mm[Hg] [facility]2020 06:38-0400 BP Systolic 118 mm[Hg] [facility] 04-19-2020 06:38-0400 Pulse (Heart Rate) 74 /min [facility] 04-19-2020 06:38-0400 Pulse Oximetry 100 % [facility] 04-19-2020 06:38-0400 Respiratory Rate 16 /min [facility] 04-19-2020 05:10-0400 Respiratory rate 0 /min [facility] 04-19-2020 04:58-0400 BMI (Body Mass Index) 18.55 kg/m2 Isabella Jeff Iniguez [facility] 04-19-2020 04:58-0400 Body Temperature 98.71 [degF] Isabella Basurto [facility] 04-19-2020 04:58-0400 Body weight 55.34 kg Isabella Basurto [facility] 04-19-2020 04:58-0400 Height 172.7 cm Isabella Basurto [facility] Encounters Encounter Date Encounter Type Care Provider Facility Start: 02-08-2023 Telephone encounter Ethel Tran RN [facility] Procedures Date Procedure Procedure Detail Performing Clinician Start: 10-10-2020 Glucose [Mass/volume ] in Blood [facility] Start: 10-10-2020 [...] Work Phone: Start: 10-10-2020 Calcium ionized Juan Acrlos P atel Work Phone: Start: 10-10-2020 Basic [...] Glucose [Mass/volume ] in Blood [facility] Start: 08-08-2020 [...] Glucose [Mass/volume ] in Blood [facility] Plan of Treatment Date Care Activity Detail Author Start: 04-28-2026 Lipid panel [facility] Adult Diabetes Lipid Screening [facility] Start: 07-04-2025 DTAP/TDAP/TD VACCINE (7 - Td) DTAP/TDAP/TD VACCINE (7 - Td) [facility] Work Phone: Start: 07-04-2025 Tetanus vaccination Tetanus: Every 10yrs [facility] Start: 07-04-2025 Tetanus, diphtheria and acellular pertussis vaccination DTAP Vaccines (7 - Td) [facility] Start: 08-04-2023 PCC Adult Diabetes Urine Microalbumin [facility] Adult Diabetes Urine Microalbumin [facility] Start: 11-03-2022 Hemoglobin A1c measurement [facility] Adult Diabetes A1c [facility] Start: 07-22-2022 Influenza vaccination INFLUENZA VACCINE (#1) [facility] Start: 07-21-2022 [facility] Adult Diabetes BMP [facility] Adult Diabetes BMP [facility] Start: 04-28-2022 ENDO DIABETES LIPID PLAN ENDO DIABETES LIPID PLAN [facility] Start: 03-13-2021 Vaccination for human papillomavirus HPV VACCINE ADOL (3 - Male 3-dose series) [facility] Start: 02-11-2021 End: 02-11-2021 Clinical Support Encounter 02/11/2021 Clinical Support Encounter [facility] Start: 02-05-2021 Hepatitis A immunization [facility] Start: 2020 Hepatitis C antibody, confirmatory test Hepatitis C Screening [facility] Start: 11-12-2020 End: 11-12-2020 Clinical Support Encounter 11/12/2020 Clinical Support Encounter [facility] Start: 10-03-2020 Meningococcal conjugate vaccination Meningoccocal ACWY Vaccine (1 - 2-dose series) [facility] Start: 09-05-2020 Vaccination for human papillomavirus [facility] Start: 07-22-2020 Influenza vaccination given Sequential Influenza Vaccine (#1) [facility] Start: 07-22-2019 Influenza vaccination [facility] Start: 2018 COVID-19 Vaccine (1 of 2) COVID-19 Vaccine (1 of 2) [facility] Start: 2018 Meningococcal conjugate vaccination [facility] Work Phone: Start: 07-22-2018 Influenza vaccination INFLUENZA VACCINE (#1) [facility] Work Phone: Start: 2017 HIV screening HIV Screening [facility] Start: 2017 Vaccination for human papillomavirus HPV VACCINE ADOL (1 - Male 3-dose series) [facility] Start: 2016 Endocrinology Transition Assessment Endocrinology Transition Assessment [facility] Start: 2015 HIV screening HIV SCREENING DISCUSSION [facility] Work Phone: Start: 2014 Adolescent depression screening assessment Depression Screening (PHQ9) [facility] Start: 2013 Vaccination for human papillomavirus HPV VACCINE ADOL (1 - Male 3-dose series) [facility] Work Phone: Start: 2012 Albumin DL <= 20 mg/L (U) [Mass/Vol] Urine Microalbumin [facility] Start: 2012 Diabetic foot examination Foot Exam [facility] Start: 2012 MENB (1 of 2 - Risk Bexsero 2-dose series) MENB (1 of 2 - Risk Bexsero 2-dose series) [facility] Start: 2012 Ophthalmic examination and evaluation Ophthalmology Exam [facility] Start: 2011 HPV VACCINES (1 - Male 2-dose series) HPV VACCINES (1 - Male 2-dose series) [facility] Start: 2009 DTaP/Tdap/Td VACCINES (1 - Tdap) DTaP/Tdap/Td VACCINES (1 - Tdap) [facility] Start: 2008 Pneumococcal vaccination PNEUMOCOCCAL VACCINE (1 - PCV) [facility] Start: 2005 History and physical examination, annual for health maintenance Wellness Visit [facility] Start: 2003 Hepatitis A immunization HEP A VACCINE (1 of 2 - 2-dose series) [facility] Work Phone: Start: 2003 MMR VACCINES (1 of 1 - Standard series) MMR VACCINES (1 of 1 - Standard series) [facility] Start: 2003 VARICELLA VACCINES (1 of 2 - 2-dose childhood series) VARICELLA VACCINES (1 of 2 - 2-dose childhood series) [facility] Start: 06-22-2003 COVID-19 Vaccine (#1) COVID-19 Vaccine (#1) [facility] Start: 2002 Diabetic foot examination [facility] Adult Diabetes Foot Exam [facility] Start: 2002 Glaucoma screening [facility] Adult Diabetes Eye Exam [facility] Start: 2002 HbA1c (Bld) [Mass fraction] A1C [facility] Start: 2002 HEPATITIS B VACCINES (1 of 3 - 3-dose series) HEPATITIS B VACCINES (1 of 3 - 3-dose series) [facility] CHLAMYDIA/GONOCOCCUS, DONAVON CHLAMY ALMA/GONOCOCCUS, DONAVON Microbiology Today Has multiple sexual partners 08/08/2020 11:30 AM EDT [facility] CT Abdomen Pelvis Wi th IV Contrast Only CT Abdomen Pelvis With IV Contrast Only Imaging [facility] 10/10/2020 12:55 PM EST [facility] CT of head without contrast CT Head Or Brain Without Contrast Imaging [facility] 10/10/2020 12:55 PM EST [facility] Screening test visua l acuity quantitative bilat HI VISUAL SCREENING TEST, BILAT HI - OFFICE PERFORMED Routine Well adolescent visit Ordered: 08/08/2020 [facility] Immunizations Immunization Date Immunization Notes Care Provider Vita johnson 11-12-2020 HPV, unspecified formulation [facility] 11-12-2020 Human Papillomavirus 9-valent vaccine [facility] 10-12-2020 influenza, injectabl e, quadrivalent, preservative free [facility] Nurse [facility] 10-12-2020 influenza virus vacc ine, unspecified formulation Ethel Tran RN [facility] 08-08-2020 hepatitis A vaccine, pediatric/adolescent dosage, 2 dose schedule [facility] 08-08-2020 Human Papillomavirus 9-valent vaccine [facility] 08-08-2020 meningococcal oligosaccharide (groups A, C, Y and W-135) diphtheria toxoid conjugate vaccine (MCV4O) [facility] 08-08-2020 meningococcal vaccin e of unknown formulation and unknown serogroups [facility] 08-08-2020 hepatitis A vaccine, unspecified formulation; Translations: [HEPATITIS A VACCINE PED/ADOLES 0.5ML IM] [facility] 08-08-2020 hepatitis A and hepatitis B vaccine Juan Carlos Ambrocio [facility] 08-08-2020 HPV, unspecified formulation [facility] 10-04-2017 influenza, seasonal, injectable, preservative free Ethel Tran RN [facility] 10-04-2017 influenza virus vacc ine, unspecified formulation [facility] Work Phone: 11-13-2015 meningococcal oligosaccharide (groups A, C, Y and W-135) diphtheria toxoid conjugate vaccine (MCV4O) [facility] Work Phone: 07-04-2015 tetanus toxoid, redu deisy diphtheria toxoid, and acellular pertussis vaccine, adsorbed [facility] Work Phone: 04-24-2008 diphtheria, tetanus toxoids and acellular pertussis vaccine [facility] Work Phone: 04-24-2008 measles, mumps and rubella virus vaccine [facility] Work Phone: 04-24-2008 poliovirus vaccine, inactivated [facility] Work Phone: 04-24-2008 varicella virus vaccine [facility] Work Phone: 06-30-2004 diphtheria, tetanus toxoids and acellular pertussis vaccine [facility] Work Phone: 06-30-2004 haemophilus influenz ae type b vaccine, conjugate unspecified formulation [facility] Work Phone: 06-30-2004 poliovirus vaccine, inactivated [facility] Work Phone: 12-27-2003 measles, mumps and rubella virus vaccine [facility] Work Phone: 12-27-2003 pneumococcal conjuga te vaccine, 7 valent [facility] Work Phone: 12-27-2003 varicella virus vaccine [facility] Work Phone: 06-25-2003 diphtheria, tetanus toxoids and acellular pertussis vaccine [facility] Work Phone: 06-25-2003 haemophilus influenz ae type b vaccine, conjugate unspecified formulation [facility] Work Phone: 06-25-2003 hepatitis B vaccine, pediatric or pediatric/adolescent dosage [facility] Work Phone: 06-25-2003 pneumococcal conjuga te vaccine, 7 valent [facility] Work Phone: 04-27-2003 hepatitis B vaccine, pediatric or pediatric/adolescent dosage [facility] 04-26-2003 diphtheria, tetanus toxoids and acellular pertussis vaccine [facility] Work Phone: 04-26-2003 haemophilus influenz ae type b vaccine, conjugate unspecified formulation [facility] Work Phone: 04-26-2003 pneumococcal conjuga te vaccine, 7 valent [facility] Work Phone: 04-26-2003 poliovirus vaccine, inactivated [facility] Work Phone: 02-05-2003 diphtheria, tetanus toxoids and acellular pertussis vaccine [facility] Work Phone: 02-05-2003 haemophilus influenz ae type b vaccine, conjugate unspecified formulation Tammy [facility] Work Phone: 02-05-2003 hepatitis B vaccine, pediatric or pediatric/adolescent dosage [facility] Work Phone: 02-05-2003 pneumococcal conjuga te vaccine, 7 valent [facility] Work Phone: 02-05-2003 poliovirus vaccine, inactivated [facility] Work Phone: 2002 hepatitis B vaccine, pediatric or pediatric/adolescent dosage [facility] Work Phone: Payers Date Payer Category Payer Unknown [facility] [employer] [id number] 2021-Present [address] [place] [address] Commercial [id number] 2016 Unknown [id number] 2015 Private Health Insurance AETNA AETNA CHOICE POS/POSII/PREMIER CARE/PREMIER CARE PLUS [id number] 2015-Present [id number] 2014 Private Health Insurance [id number] 2014 Private Health Insurance 2002 Unknown [facility] [id number] 2002-Present [id number] 2002 Unknown [id number] 2002 Unknown [id number] 2002 Unknown [id number] 2002 Unknown [id number] 1971 Unknown [id number] 1971 Unknown [id number] Private Health Insurance [id number] Private Health Insurance AETNA SRC/AETNA AFF HEALTH CH/PPO INDEM [id number] Effective for all dates xxxxxxxxxxxx [id number] Social History Date Type Detail Facility Start: 11-28-2018 End: 10-10-2020 Tobacco smoking status NHIS Never smoker [facility] Work Phone: Start: 2002 Sex Assigned At Not on file [facility] Work Phone: Start: 11-28-2018 Alcohol intake No [facility] Start: 08-08-2020 End: 07-21-2021 Tobacco use and exposure Never used [facility] Start: 08-08-2020 End: 11-12-2020 Alcohol intake Current non-drinker of alcohol (finding) [facility] Start: 10-10-2020 Alcohol intake Lifetime non-d petr (finding) [facility] Start: 10-10-2020 History SDOH Alcohol Frequency 1 [facility] Exposure to SARS-CoV -2 (event) Not sure [facility] Start: 07-21-2021 [facility] Start: 08-04-2022 Alcohol intake [facility] Medical Equipment Procedure Code Equipment Code Equipment Origin al Text Equipment Identifier Dates Use as directed to test blood sugar 6 times daily and as needed. [id number] Start: 01-21-2020 Use 4 to 6 times daily and as needed [id number] Start: 03-04-2020 Use as directed for injections up to 6x day [id number] Start: 03-04-2020 Use as directed 6 times daily. [id number] Start: 08-04-2022 Use as directed for injections up to 6x day [id number] Start: 08-04-2022 Monitor urine ketones prn when glucose above 300mg/dl and sick days [id number] Start: 08-04-2022 Use 4-6x/day and prn [id number] Star t: 08-04-2022 Use as directed to test blood sugar 6 times daily and as needed. [id number] Start: 02-03-2021 Use 4 to 6 times daily and as needed [id number] Start: 02-03-2021 Telephone encounter Note 02-08-2023 Telephone Encounter - Cele Adams APN - 02/08/2023 10:35 AM EDT Note Date & Type Note Facility 02-08-2023 Telephone encounter Note Called and spoke to pharmacy on file where rx had been sent from last visit. Per [facility] pharmacy there records show that novolog/aspart rx from 07/2022 was changed to fiasp under this provider's name. No documentation in pt chart that this provider approved change/rx fiasp. Per pharmacy rx were transferred to another pharmacy in [place]. No further action at this time. Per RN note below, requested pt to call back to inquire about f/u; if seen by outside provider or needs [facility] appt, if latter will be scheduled with Dr. Wilson, adult transition clinic. [facility] Note 02-08-2023 Telephone Encounter - Cele Adams APN - 02/08/2023 10:35 AM EDTTelephone Encounter - Ethel Tran RN - 02/08/2023 9:58 AM EDT Note Date & Type Note Facility 02-08-2023 Miscellaneous Notes Formattin g of this note might be different from the original. Called and spoke to pharmacy on file where rx had been sent from last visit. Per [facility] pharmacy there records show that novolog/aspart rx from 07/2022 was changed to fiasp under this provider's name. No documentation in pt chart that this provider approved change/rx fiasp. Per pharmacy rx were transferred to another pharmacy in [place]. No further action at this time. Per RN note below, requested pt to call back to inquire about f/u; if seen by outside provider or needs [facility] appt, if latter will be scheduled with [...] PA request deleted. documented in this encounter [facility] Telephone encounter Note 02-08-2023 Telephone Encounter [...] Fiasp prescription was sent on 02/08/2023 by lGadys Adams as well as [employer]. Spoke with Gladys Adams who stated she did not send over the prescriptions and she will follow-up with the pharmacy regarding this. PA request deleted. [facility] Summary Purpose Family History No Family History Records FoundNo Family History Records FoundNo Family History Records FoundNo Family History Records Found Advance Directives Documents on File Type Date Recorded Patient Network Project Manager Expl anation Advance Directives and Livin g Will 10/10/2020 5:24 AM Documents on File Type Date Recorded Patient Network Project Manager Expl anation Advance Directives and Livin g Will 04/19/2020 5:24 AM Reason for Referral Status Reason Specialty Diagnoses / Procedures Referred By Contact Referred To Contact New Request Diagnoses Generalized anxiety disorder Tiffanie Pleitez, [address] [place] [address] History of Present Illness * Tiffanie Pleitez [...] grade School attended: [employer] Had been attending [employer] but transferred back to [facility] [employer] 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 Santana at [facility]; Anxiety-feels pressure from changing schools and pressure at home; He did see a Baptism counselorseveral years ago, but did not feel [...] meal and at bedtime. Strongly recommend contacting [facility] Endocrinology for an appointment. Also strongly recommend yearly ophthalmology exam UA for GC and CT sent to [facility] Discussed the importance of counseling along with medication management. Since Sal will be graduating from high school in 8 months and no longer a patient in our practice will refer to behavioral health so that his anxiety can be managed by the same provider once he graduates. Referral made to [facility]. 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 -If guns in home, keep locked up, [...] presents in office for 19 y.o. y.o. 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 Father has concerns with [...] through Care Everywhere. * Nausea and Vomiting ([place]) * Hypoglycemia in Diabetes: General Info ([place]) documented in this encounter Additional Source Comments (unrecognized sect ion and content) No Status Records FoundNo Status Records FoundNo Status Records FoundNo Status Records Found INFORMATION SOURCE (unrecogn ized section and content) DATE CREATED AUTHOR AUTHOR'S ORGANIZ ATION 10/13/2020 [facility] DATE CREATED AUTHOR AUTHOR'S ORGANIZ ATION 11/13/2020 [facility] DATE CREATED AUTHOR AUTHOR'S ORGANIZ ATION 10/11/2022 [facility] Reason for Visit (unrecogniz ed section and [...] redrawn. Lab called to redraw lab. Called [facility] @ [phone] and spoke to Bridgette about getting pt transferred. Call given to Dr Ambrocio at this time. [facility] ED Attending Note: NAME: Sal Lo 19 y.o. CSN: [id number] PCP: Jesse Santana MD History: Chief Complaint: [...] Diagnosis Date MCAD (medium-chain acyl-CoA dehydrogenase deficiency) ([facility]) Type 1 diabetes ([facility]) PMSx: History reviewed. No pertinent surgical history. [...] Colorless, Yellow Clarity, Urine Clear Clear Specific Crawford 1.020 1.005 - 1.025 pH, Urine 5.0 [...] abnormality within the limitation of the study. [employer] Workstation ID: [id number] CT Head Or Brain Without Contrast Preliminary Result CT head: No acute intracranial findings. CT abdomen and pelvis: Limited study due to motion artifact. Marked hepatic steatosis. No evidence of bowel obstruction. The appendix could not be confidently identified. No acute abdominopelvic abnormality within the limitation of the study. [employer] Workstation ID: [id number] Procedures: Procedures Critical Care [...] ER physician, endocrinology and genetics over at [facility], they recommended ammonia level, 9 units [...] l-carnitine prior to transfer. I have notified [facility] of this CT scans did return and were negative for acute findings. Patient was transferred to [facility] for further management, glucose was downtrending and mental status was slowly improving, neuro exam showed no focal deficit he still 5-5 strength bilaterally Clinical Impression: 1. Ketosis (HCC) 2. Type 1 diabetes mellitus with ketoacidosis without coma (HCC) 3. Altered mental status, unspecified altered mental status type Juan Carlos Ambrocio MD [facility] [facility] (Please note that portions of [...] light if feels nausea ED PROVIDER NOTE [facility] NAME: Sal Lo AGE: 19 y.o. : 2000 VISIT DATE: 04/19/2020 CSN: [id number] PCP: Jesse Santana MD No chief complaint [...] of persistent nausea. History provided by: Patient parts interpreter used: No No past medical history on [...] Colorless, Yellow Clarity, Urine Clear Clear Specific [place] 1.004 (L) 1.005 - 1.025 pH, Urine [...] 1. Jesse Santana MD. Specialty: Pediatric Endocrinology [address] [place], [place] [id number] Contact information for after-discharge care Follow-up information [...] BE BASED ON THE PRIMARY CLINICAL RECORDS. [employer] provides no warranty or guarantee of the accuracy or completeness of information in this document.
[2023-11-11 01:33] LABS: Bedside Glucose 152 mg/dL (74-106)
[2023-11-11 01:33] LABS: Bedside Glucose 98 mg/dL (74-106)
--- NOTE | 2023-11-22 09:43 | CCN.REFER ---
NO CALL RECEIVED FROM PATIENT AFTER PHONE NUMBER LEFT WITH PATIENT AT LAST ADMISSION TO [place] IN CCN. T/C TO PATIENT 11/16, 11/17, AND 11/22 WITH NO ANSWER [phone]. VM ALSO LEFT ON 11/17 WITH PERSON TO NOTIFY EDDA @ [phone].
== END 2023-11-10 11:45 | disposition home or self-care (01) ==
LOC: ED 18:25 → ICU 19:42
PROVIDERS: Internal Medicine; Admitting Provider Internal Medicine; Emergency Provider Emergency Medicine; PCP Internal Medicine; Visit Provider Family Medicine
DX: E10.10 Type 1 diabetes mellitus with ketoacidosis without coma (principal); Z79.4 Long term (current) use of insulin; K76.0 Fatty (change of) liver, not elsewhere classified; F17.290 Nicotine dependence, other tobacco product, uncomplicated; Z91.199 Patient's noncompliance with other medical treatment and regimen due to unspecified reason; E87.1 Hypo-osmolality and hyponatremia
CPT/HCPCS: 80048; 80053; 81001; 82009; 82962; 83690; 83735; 84100; 85025; 94668; 96361; 96365; 96366; 96367; 96375; 96376; 99221; 99285; J7030; A4216; G0378; J2405

== ENCOUNTER 2024-03-30 17:37 | Emergency (ER) | payer OTHER, SELFPAY ==
[2024-03-30 17:37] VITALS: BP 147/103; BP 151/102; PULSE 103; PULSE 110; RESP 12; RESP 14; TEMP 36.1; O2SAT 97; O2SAT 99
[2024-03-30 17:45] VITALS: BMI 17.4
--- NOTE | 2024-03-30 18:19 | EX.ED.VIS.PS ---
HPI HPI - Psych History of Present Illness Chief Complaint: Suicidal Informant: patient and police/gold leaf layer Narrative Narrative: Patient brought and pink slipped by police due to suicidal thoughts. He admits to holding a knife, but he states he picked it up and then he sat back down, he states he could not use it to kill himself, and states if they would have left me at home, I would be okay. He has admitted depression and anxiety, has had it for years, he states his fianc?e and him are having relationship issues which is a major stressor here recently and he feels like any progress he tries to make with his relationship makes things worse for him. He has an appointment with his PCP try to get on an antidepressant again this coming week, and has an appointment with counseling this coming week which she has not seen yet. He was having issues with the other antidepressant medications we had to stop them. He smokes but denies any alcohol use or other drugs recently. Apparently his girlfriend was the one who called EMS/police, and according to her, saw him put the knife to his lower arm and said he was going to kill himself which the patient denies. PFSH [facility] Medical History Anxiety Depression Elevated liver enzymes H/O medication noncompliance History of cigarette smoking MCAD deficiency Nicotine vapor product user Type 1 diabetes Home Medications blood-glucose sensor (FreeStyle [place] 3 Sensor device) #2 ea 08/25/23 [Rx Last Taken Unknown] insulin aspart U-100 100 unit/mL (3 mL) subcutaneous pen (Novolog FlexPen U-100 Insulin aspart) 8 unit subcut TID DIABETES 10/24/23 [History Last Taken 11/09/23] insulin glargine 100 unit/mL (3 mL) subcutaneous pen (Lantus Solostar U-100 Insulin) 18 unit subcut QHS DIABETES 11/09/23 [History Last Taken 11/08/23] dextroamphetamine-amphetamine ER 30 mg 24hr capsule,extend release 1 cap PO DAILY 03/30/24 [History Last Taken Unknown] Allergy/AdvReac Type Severity Reaction Status Date / Time No Known Allergies Allergy Verified 03/30/24 17:38 Family History Mother Anxiety and depression Father Anxiety and depression Surgical History S/P left inguinal hernia repair Social History household members: other details: Currently living with his father with also financee, reporting moving alot. Smoking Status: Current every day smoker tobacco type: e-cigarettes Smokeless tobacco user: other Electronic Cigarette Use: with nicotine how long ago did patient quit smoking: Used cigarette tobacco 14-16 yrs old, 1/2 ppd until transitioned to vaping. 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 ROS ROS ED Constitutional Constitutional ED: Denies chills or fever(s) Eyes Eyes: Denies change in vision or diplopia ENT ENT ED: Denies rhinorrhea or sore throat Cardiovascular Cardiovascular: Denies chest pain or palpitations Respiratory/Chest Respiratory/Chest: Denies cough or dyspnea Gastrointestinal Gastrointestinal: Denies abdominal pain, diarrhea, nausea or vomiting Genitourinary Genitourinary ED: Denies dysuria or hematuria Musculoskeletal Musculoskeletal: Denies back pain or neck pain Integumentary Denies abscess or rash Neurologic Neurologic: Denies headache(s), paresthesias or weakness Psychiatric Psychiatric: Reports anxiety, depression and suicidal thoughts; Denies homicidal ideation EXAM Physical Exam Const Vital Signs: 03/30/24 17:37 03/30/24 17:37 03/30/24 18:37 Temperature 96.9 F L Temperature Source Temporal Pulse Rate 110 H 103 H Respiratory Rate 14 12 Blood Pressure 151/102 H 147/103 H 135/82 H Blood Pressure Mean 118 117 99 Pulse Ox 97 99 Oxygen Delivery Method Room Air Room Air Positive well nourished and well developed General Appearance ED: well developed and NAD HEENT Reports moist mucous membranes normocephalic and atraumatic Eyes PERRL and EOMs intact bilaterally General Eye ED: Negative for scleral icterus Neck no lymphadenopathy and supple Resp normal respiratory effort and clear to auscultation bilaterally Cardio no murmurs Rate: regular rate Rhythm: regular rhythm GI non-tender and non-distended Auscultation: normoactive bowel sounds Palpation: soft Back/Spine no CVA tenderness and normal ROM Extremity normal to inspection Extremity Narrative: No signs of self injury General Extremety ED: Negative for edema General Extremity: Negative for edema Neuro oriented x3, CN's II-XII intact bilaterally, no sensory deficits noted and gait normal Sensorium / Orientation: alert Motor Exam: strength 5/5 throughout Psych mental status grossly normal, thought process normal, cooperative, speech normal, activity/motor behavior normal and denies homicidal ideation Speech: normal speech Mood & Affect: depressed Thought Content: suicidality Skin Lesions: no lesions Rashes: no rashes MDM MDM MDM Narrative Medical decision making narrative: Labs reviewed, little hyperglycemic patient is a known type I diabetic. Will treat this with some insulin and discuss his dosing prior to ordering it. Alcohol is negative. Toxicology noted. He is medically clear for psychiatric evaluation, discussed with crisis for evaluation. Lab Data Attestation: I reviewed the patient's lab results. Labs: Laboratory Results - last 24 hr 03/30/24 03/30/24 17:55 17:59 WBC 5.0 RBC 4.71 Hgb 14.2 Hct 43.9 MCV 93.2 MCH 30.1 MCHC 32.3 RDW Std Deviation 41.1 RDW Coeff of Violeta 11.9 Plt Count 245 MPV 9.5 Immature Gran % (Auto) 0.400 Neut % (Auto) 58.5 Lymph % (Auto) 32.5 [place] % (Auto) 6.2 Eos % (Auto) 1.6 Baso % (Auto) 0.8 Absolute Neuts (auto) 2.9 Absolute Lymphs (auto) 1.63 Nucleated RBC % 0 Sodium 135 L Potassium 3.7 Chloride 101 Carbon Dioxide 24.0 Anion Gap 10 BUN 10 Creatinine 0.90 Estim Creat Clear Calc 95.49 Est GFR (MDRD) Af Amer 136 Est GFR (MDRD) Non-Af 112 BUN/Creatinine Ratio 11.0 Glucose 305 H Calcium 9.1 Urine Opiates Screen NEGATIVE Urine Methadone Screen NEGATIVE Ur Barbiturates Screen NEGATIVE Ur Phencyclidine Scrn NEGATIVE Ur Amphetamines Screen NEGATIVE MDMA (Ecstasy) Screen NEGATIVE U Benzodiazepines Scrn NEGATIVE Urine Cocaine Screen NEGATIVE U Cannabinoids Screen POSITIVE H Ur Drug Screen Comment Ethyl Alcohol 5.0 Discharge Plan Triage Chief Complaint: Suicidal ED Provider: Rudy Lyles Dx/Rx/DC Orders Clinical Impression: Hyperglycemia due to type 1 diabetes mellitus, Suicidal thoughts Prescriptions: No Action (DME) FreeStyle [place] 3 Sensor Device See Rx Instructions .Route Qty: 2 5RF Rx Instructions: 1 sensor 14 days insulin aspart U-100 [Novolog FlexPen U-100 Insulin] 100 unit/mL (3 mL) Insulin Pen 8 unit SUBCUT TID insulin glargine [Lantus Solostar U-100 Insulin] 100 unit/mL (3 mL) insulin pen 18 unit SUBCUT QHS dextroamphetamine-amphetamine 30 mg capsule,extended release 24hr 1 cap PO DAILY Primary Care Provider: Chaya Varghese NP Referrals: Chaya Varghese NP, REPORTS ANALYST-C [Primary Care Provider] -
[2024-03-30 18:26] LABS: Absolute Lymphocyte Count 1.63 X10^3/uL (0.83-4.51); Absolute Neutrophil Count 2.9 X10^3/uL (2.0-7.7); Basophil# 0.04 X10^3/uL; Basophil% 0.8 % (0-1); Eosinophil# 0.08 X10^3/uL; Eosinophils% 1.6 % (0-5); Hematocrit 43.9 % (40-54); Hemoglobin 14.2 g/dL (13.0-16.5); Lymphocyte # 1.63 X10^3/ul (0.83-4.51); Lymphocyte % 32.5 % (19-41); Mean Corp Hgb Conc 32.3 g/dL (32-36); Mean Corpuscular Hgb 30.1 pg (27.0-32.0); Mean Corpuscular Volume 93.2 fL (80-94); Mean Platelet Vol. 9.5 fl (6.2-12.0); Monocyte# 0.31 X10^3/uL; Monocyte% 6.2 % (0-10); NRBC Flagged by Analyzer 0 % (0-5); Neutrophil # 2.93 X10^3/uL (2.7-7.7); Neutrophil % 58.5 % (47-70); Platelet Count 245 K/mm3 (150-450); RBC Distribution Width CV 11.9 % (11.6-14.6); RBC Distribution Width SD 41.1 fl (35.1-43.9); Red Blood Count 4.71 M/mm3 (4.6-6.2)
[2024-03-30 18:37] VITALS: BP 135/82
[2024-03-30 18:38] LABS: Anion Gap 10 (5-15); BUN 10 mg/dL (7-18); Calcium,Total 9.1 mg/dL (8.5-10.1); Chloride 101 mmol/L (98-107); EST Glomerular Filtration Rate 112 mL/min (>60); Est Glom Filt Rate - Afr Amer 136 mL/min (>60); Estimated Creatinine Clearance 95.49 ml/min; Glucose 305 mg/dL (74-106); Potassium 3.7 mmol/L (3.5-5.1); Sodium Level 135 mmol/L (136-145)
[2024-03-30 18:41] LABS: Amphetamine Urine VISTA NEGATIVE (<1000 ng/mL); Barbiturate Urine VISTA NEGATIVE (< 200 ng/mL); Benzodiazepine Urine VISTA NEGATIVE (< 200 ng/mL); Cocaine Urine VISTA NEGATIVE (< 300 ng/mL); Ecstacy Urine VISTA NEGATIVE (< 500 ng/mL); Methadone Urine VISTA NEGATIVE (< 300 ng/mL); PCP Urine VISTA NEGATIVE (< 25 ng/mL); THC Urine VISTA POSITIVE (< 50 ng/mL); Vista UDS pH Range 5
--- NOTE | 2024-03-30 19:22 | NURSING ---
CALLED CRISIS AND FAXED CHART
[2024-03-31] MEDS: Insulin Lispro 100 UNIT/ML INSULN.PEN SC (00:26)
[2024-03-31 00:32] LABS: Bedside Glucose 271 mg/dL (74-106)
[2024-03-31 03:44] VITALS: BP 137/92; PULSE 80; RESP 16; TEMP 36.3; O2SAT 99
== END 2024-03-31 03:44 | disposition home or self-care (01) ==
PROVIDERS: Emergency Provider Emergency Medicine; PCP Internal Medicine; Visit Provider Emergency Medicine
DX: R45.851 Suicidal ideations (principal); E10.65 Type 1 diabetes mellitus with hyperglycemia; F41.9 Anxiety disorder, unspecified; F32.A Depression, unspecified; Z63.0 Problems in relationship with spouse or partner; F17.290 Nicotine dependence, other tobacco product, uncomplicated
CPT/HCPCS: 80048; 80307; 80320; 82962; 85025; 99285; G0480

== ENCOUNTER 2024-07-17 13:55 | Inpatient (IN) | payer OTHER, SELFPAY ==
[2024-07-17] VITALS (14 sets, daily range): BP systolic 105–132; BP diastolic 62–90; PULSE 74–90; RESP 11–22; TEMP 36.2–36.7; O2SAT 97–100; BMI 18.6; BMI 19.1
--- NOTE | 2024-07-17 14:19 | NURSING ---
Pt came in with bottle of Adderall, 3 pills in bottle. Bottle at nurses station.
--- NOTE | 2024-07-17 14:22 | EX.ED.DYSGE1 ---
HPI History of Present Illness Chief Complaint: Hyperglycemia Informant: patient Onset/Context/Timing Onset: Yesterday Context: Gradual Onset Timing: Continuous Quality: Fatigue, weakness Location: Generalized Worsened by: Nothing Relieved by: Sleeping Narrative Narrative: Patient presents with elevated blood sugars that have been getting worse since yesterday. Patient states they are gradually getting worse. Patient states he has been taking his insulin but not as much as he has been prescribed. Patient states that sometimes he misses his doses and forgets to check his sugar. Patient states he has been having some nausea and vomiting. Patient denies any polyuria but admits to some polydipsia. Patient does admit to some pain in his neck and back. Patient denies any fevers or chills. Patient also states he was using too much of his Adderall at home. Patient states he was using 2 tablets a day instead of 1. Patient states he has stopped using this. Mother believes that he has been using more than 2 tablets/day. [facility] Medical History Elevated liver enzymes Anxiety Depression Nicotine vapor product user History of cigarette smoking H/O medication noncompliance MCAD deficiency Type 1 diabetes Home Medications ?Medication ?Instructions ?Recorded ?Last Taken ?Type blood-glucose sensor (FreeStyle #2 ea 08/25/23 Unknown Rx [place] 3 Sensor device) insulin glargine 100 unit/mL (3 18 unit subcut [facility] DIABETES 11/09/23 11/08/23 History mL) subcutaneous pen (Lantus Solostar U-100 Insulin) dextroamphetamine-amphetamine ER 1 cap PO DAILY 03/30/24 Unknown History 30 mg 24hr capsule,extend release insulin lispro 100 unit/mL 14 unit subcut TID 03/30/24 Unknown History subcutaneous solution (Humalog U-100 Insulin) Allergy/AdvReac Type Severity Reaction Status Date / Time No Known Allergies Allergy Verified 07/17/24 13:56 Family History Mother Anxiety and depression Father Anxiety and depression Surgical History S/P left inguinal hernia repair Social History (Updated 07/17/24 @ 14:[address] Maikol Schwiger, DO) household members: other details: Currently living with his father with also financee, reporting moving alot. Smoking Status: Current every day smoker tobacco type: e-cigarettes Smokeless tobacco user: other Electronic Cigarette Use: with nicotine how long ago did patient quit smoking: Used cigarette tobacco 14-18 yrs old, 1/2 ppd until transitioned to vaping. alcohol intake: never substance use type: former substance user Date of last use: Previous abuse vivance, mushrooms, acid, reports clean x 1-2 years., marijuana and prescription drug ROS ROS ED Constitutional Constitutional ED: Denies chills or fever(s) Eyes Eyes: Denies blurry vision or change in vision ENT ENT ED: Denies rhinorrhea or sore throat Cardiovascular Cardiovascular: Denies chest pain or palpitations Respiratory/Chest Respiratory/Chest: Denies cough or dyspnea Gastrointestinal Gastrointestinal: Reports abdominal pain, nausea and vomiting Genitourinary Genitourinary ED: Denies dysuria or hematuria Musculoskeletal Musculoskeletal: Reports back pain and neck pain Integumentary Denies abscess or rash Neurologic Neurologic: Denies headache(s) or weakness Psychiatric Psychiatric: Denies suicidal ideation or suicidal thoughts Endocrine Endocrinology: Reports polydipsia Allergic/Immunologic Allergic/Immunologic ED: Denies mouth swelling or urticaria EXAM Physical Exam Const Vital Signs: 07/17/24 13:56 07/17/24 14:09 Temperature 97.2 F L Temperature Source Temporal Pulse Rate 78 Respiratory Rate 22 H Respiratory Effort Normal Respiratory Pattern Normal Blood Pressure 128/90 H Blood Pressure Mean 102 Pulse Ox 100 Oxygen Delivery Method Room Air Positive well nourished and well developed General Appearance ED: well developed and NAD HEENT Reports dry mucous membranes Mouth ED: Yes dry mucous membranes Mouth: dry mucous membranes Neck supple and no JVD Resp normal respiratory effort and clear to auscultation bilaterally Cardio regular rate and regular rhythm GI non-tender and non-distended Palpation: soft Neuro oriented x3, CN's II-XII intact bilaterally and no sensory deficits noted Sensorium / Orientation: alert Motor Exam: strength 5/5 throughout MDM MDM MDM Narrative Medical decision making narrative: Differential diagnosis includes DKA, hyperosmolar hyperglycemic nonketotic state, dehydration, substance abuse, electrolyte abnormality, and viral illness. CBC will be obtained to assess for leukocytosis and anemia. Basic metabolic profile will be obtained to assess for electrolyte abnormality, hyperglycemia, and renal function. Serum acetone will be obtained to assess for ketones. Urinalysis will be obtained to assess for glucosuria and ketonuria. Lab Data Attestation: I reviewed the patient's lab results. Lab results narrative: CBC was reviewed and was within normal limits. Basic metabolic profile was reviewed. Glucose was 410 and anion gap was elevated at 16. CO2 was slightly low at 19. Sodium was slightly low at 133. The remainder is within normal limits. Urinalysis was reviewed. Urine glucose was 1000 and urine ketones were 150. There is no evidence of urinary tract infection or hematuria. Serum acetone was reviewed and was small. Labs: Laboratory Results - last 24 hr 07/17/24 07/17/24 07/17/24 14:17 14:45 14:52 WBC 7.7 RBC 4.45 L Hgb 13.5 Hct 40.7 MCV 91.5 MCH 30.3 MCHC 33.2 RDW Std Deviation 40.7 RDW Coeff of Violeta 12.0 Plt Count 271 MPV 8.6 Immature Gran % (Auto) 0.400 Neut % (Auto) 78.8 H Lymph % (Auto) 14.9 L [place] % (Auto) 3.9 Eos % (Auto) 1.6 Baso % (Auto) 0.4 Absolute Neuts (auto) 6.1 Absolute Lymphs (auto) 1.15 Nucleated RBC % 0 Sodium 133 L Potassium 3.6 Chloride 98 Carbon Dioxide 19.0 L Anion Gap 16 H BUN 13 Creatinine 1.03 Est GFR (MDRD) Af Amer 117 Est GFR (MDRD) Non-Af 96 BUN/Creatinine Ratio 12.6 Glucose 410 H Calcium 8.8 Urine Color Yellow Urine Clarity Clear Urine pH 5.0 Ur Specific [place] 1.010 Urine Protein Negative Urine Glucose (UA) 1000 H Urine Ketones 150 A* Urine Occult Blood Negative Urine Nitrite Negative Urine Bilirubin Negative Urine Urobilinogen Normal Ur Leukocyte Esterase Negative Urine RBC 0 SEEN Urine WBC 0 SEEN Ur Squamous Epith Cells 0 SEEN Urine Bacteria 0 SEEN Urine Mucus 0 SEEN Acetone Level SMALL H POC Glucose 480 H* Treatment and Re-Evaluation :: Patient was given IV fluids. Patient and mother were advised of the findings. Patient was started on IV insulin. Case was discussed with the hospitalist. She will admit the patient to ICU. Patient and mother understood and were agreeable with the plan. All questions were answered. Discharge Plan Triage Chief Complaint: Hyperglycemia ED Provider: Maikol Hines Dx/Rx/DC Orders Clinical Impression: Diabetic ketoacidosis, Type 1 diabetes mellitus, Adderall use disorder, mild, abuse Prescriptions: No Action (DME) FreeStyle [place] 3 Sensor Device See Rx Instructions .Route Qty: 2 5RF Rx Instructions: 1 sensor 14 days insulin glargine [Lantus Solostar U-100 Insulin] 100 unit/mL (3 mL) insulin pen 18 unit SUBCUT QHS dextroamphetamine-amphetamine 30 mg capsule,extended release 24hr 1 cap PO DAILY insulin lispro [Humalog U-100 Insulin] 100 unit/mL solution 14 unit subcut TID Primary Care Provider: Chaya Varghese NP Referrals: Chaya Varghese NP, DRAWING TRACER-C [Primary Care Provider] - Print Language: Yemeni Disposition Disposition: Acute Care [facility]
[2024-07-17 14:38] LABS: Bedside Glucose 480 mg/dL (74-106)
[2024-07-17] MEDS: 0.9% Normal Saline (1000mL) 1,000 ML 1000 ML IV (14:48)
[2024-07-17 14:53] LABS: Absolute Lymphocyte Count 1.15 X10^3/uL (0.83-4.51); Absolute Neutrophil Count 6.1 X10^3/uL (2.0-7.7); Basophil# 0.03 X10^3/uL; Basophil% 0.4 % (0-1); Eosinophil# 0.12 X10^3/uL; Eosinophils% 1.6 % (0-5); Hematocrit 40.7 % (40-54); Hemoglobin 13.5 g/dL (13.0-16.5); Lymphocyte # 1.15 X10^3/ul (0.83-4.51); Lymphocyte % 14.9 % (19-41); Mean Corp Hgb Conc 33.2 g/dL (32-36); Mean Corpuscular Hgb 30.3 pg (27.0-32.0); Mean Corpuscular Volume 91.5 fL (80-94); Mean Platelet Vol. 8.6 fl (6.2-12.0); Monocyte% 3.9 % (0-10); NRBC Flagged by Analyzer 0 % (0-5); Neutrophil # 6.07 X10^3/uL (2.7-7.7); Neutrophil % 78.8 % (47-70); Platelet Count 271 K/mm3 (150-450); RBC Distribution Width SD 40.7 fl (35.1-43.9); Red Blood Count 4.45 M/mm3 (4.6-6.2); White Blood Count 7.7 K/mm3 (4.4-11.0)
[2024-07-17 14:58] LABS: Bacteria 0 SEEN /hpf (None Seen); Mucous, Urine 0 SEEN /hpf (<or=2+); Red Blood Cells-Urine 0 SEEN /hpf (0-5); Squamous Epithelial Cells - UA 0 SEEN /hpf (0-5); White Blood Cells 0 SEEN /hpf (0-5)
[2024-07-17 15:01] LABS: Glucose, Dipstick 1000 mg/dl (Normal); Leukocyte Esterase-Dipstick Negative /ul (Negative); Nitrite-Dipstick Negative (Negative); Occult Blood-Urine Negative /ul (Negative); Protein-Dipstick Negative (Negative); Urine Bilirubin Dipstick Negative (Negative); Urine Urobilinogen Normal (Normal)
[2024-07-17 15:02] LABS: Color, Urine Yellow (Yellow); Ketone-Dipstick 150 mg/dl (Negative); Urine Clarity Clear (Clear)
[2024-07-17 15:09] LABS: Anion Gap 16 (5-15); BUN 13 mg/dL (7-18); BUN/Creat Ratio 12.6 RATIO (10-20); Calcium,Total 8.8 mg/dL (8.5-10.1); Chloride 98 mmol/L (98-107); Creatinine, Serum 1.03 mg/dL (0.70-1.30); EST Glomerular Filtration Rate 96 mL/min (>60); Est Glom Filt Rate - Afr Amer 117 mL/min (>60); Glucose 410 mg/dL (74-106); Potassium 3.6 mmol/L (3.5-5.1); Sodium Level 133 mmol/L (136-145)
--- NOTE | 2024-07-17 15:49 | PCM.HP.STD ---
HPI - General General Date of Admission: 07/17/24 Date of Service: 07/17/24 Chief Complaint: Elevated blood glucose HPI Narrative MACHELLE CALIX, is a 23-year-old male history of type 1 diabetes, ADHD, fatty nonalcoholic liver disease, multiple episodes of DKA presented to [facility] ED 07/17/2024 due to 2 days of elevated blood glucose. In the ED glucose was 480 with small acetone and BMP revealed high anion gap metabolic acidosis concerning for DKA. Patient given IV fluids and started on insulin drip and hospitalist contacted for admission for DKA. Patient evaluated at bedside. Patient presently tired and suboptimal engagement with interview but does report over the past 1 to 2 days he has been nauseous and weak and fatigued and has had elevated glucose. Reports compliance with his 13 to 14 units per meal but sometimes will not take his long-acting, does not follow with an supervisor compressed yeast, does not have an insulin pump. Reports other than feeling tired, nauseous, fatigued he has no other new or acute complaints. Was prescribed Adderall was taking this more than prescribed but has not taken it for 2 days intentionally as he is trying to get off of it. Reports he vapes but denies any other substance use. [facility] Medical History Elevated liver enzymes Anxiety Depression Nicotine vapor product user History of cigarette smoking H/O medication noncompliance MCAD deficiency Type 1 diabetes Home Medications ?Medication ?Instructions ?Recorded ?Last Taken ?Type blood-glucose sensor (FreeStyle #2 ea 08/25/23 Unknown Rx [place] 3 Sensor device) insulin glargine 100 unit/mL (3 18 unit subcut [facility] DIABETES 11/09/23 11/08/23 History mL) subcutaneous pen (Lantus Solostar U-100 Insulin) dextroamphetamine-amphetamine ER 1 cap PO DAILY 03/30/24 Unknown History 30 mg 24hr capsule,extend release insulin lispro 100 unit/mL 14 unit subcut TID 03/30/24 Unknown History subcutaneous solution (Humalog U-100 Insulin) Allergy/AdvReac Type Severity Reaction Status Date / Time No Known Allergies Allergy Verified 07/17/24 13:56 Family History Mother Anxiety and depression Father Anxiety and depression Surgical History S/P left inguinal hernia repair Social History (Updated 07/17/24 @ 14:[address] Maikol Hines DO) household members: other details: Currently living with his father with also financee, reporting moving alot. Smoking Status: Current every day smoker tobacco type: e-cigarettes Smokeless tobacco user: other Electronic Cigarette Use: with nicotine how long ago did patient quit smoking: Used cigarette tobacco [age] yrs old, 1/2 ppd until transitioned to vaping. alcohol intake: never substance use type: former substance user Date of last use: Previous abuse vivance, mushrooms, acid, reports clean x 1-2 years., marijuana and prescription drug ROS ROS Narrative General: Denies fever/chills HENT: Denies headache, denies stuffy nose, denies sore throat EYES: Denies changes in vision Resp: Denies cough, denies shortness of breath Cardiac: Denies chest pain GI: Denies abdominal pain, denies changes in bowel, improving nausea : Denies changes in urination Extremity: Denies swelling MSK: Denies weakness but feels generally tired and fatigued Neuro: Denies any numbness/tingling Heme: Denies any bleeding or bruising Skin: Denies rashes Psychiatric: Feels generally tired Vital Signs Vital Signs Vital Signs: 07/17/24 13:56 07/17/24 14:09 Temperature 97.2 F L Temperature Source Temporal Pulse Rate 78 Respiratory Rate 22 H Respiratory Effort Normal Respiratory Pattern Normal Blood Pressure 128/90 H Blood Pressure Mean 102 Pulse Ox 100 Oxygen Delivery Method Room Air Weight Weight: 55.565 kg Body Mass Index (BMI) 18.6 Physical Exam Narrative General: Tired but will wake up and answer questions HEENT: Atraumatic, normocephalic Eyes: Anicteric, normal conjunctiva, extraocular movements grossly intact Neck: Supple Respiratory: Clear to auscultation bilaterally, normal respiratory effort Cardiovascular: Regular rate and rhythm GI: Soft, nontender, nondistended Extremities: No edema Musculoskeletal: Moving all extremities Neuro: No overt focal neurological deficits Skin: No rashes appreciated Psych: Wants to sleep, somewhat reluctant to wake up and participate in exam Results Lab / Micro Data 07/17/24 14:45 07/17/24 14:45 Labs: Laboratory Results - last 24 hr 07/17/24 14:17: POC Glucose 480 H* 07/17/24 14:45: WBC 7.7, RBC 4.45 L, Hgb 13.5, Hct 40.7, MCV 91.5, MCH 30.3, MCHC 33.2, RDW Std Deviation 40.7, RDW Coeff of Violeta 12.0, Plt Count 271, MPV 8.6, Immature Gran % (Auto) 0.400, Neut % (Auto) 78.8 H, Lymph % (Auto) 14.9 L, [place] % (Auto) 3.9, Eos % (Auto) 1.6, Baso % (Auto) 0.4, Absolute Neuts (auto) 6.1, Absolute Lymphs (auto) 1.15, Nucleated RBC % 0, Sodium 133 L, Potassium 3.6, Chloride 98, Carbon Dioxide 19.0 L, Anion Gap 16 H, BUN 13, Creatinine 1.03, Est GFR (MDRD) Af Amer 117, Est GFR (MDRD) Non-Af 96, BUN/Creatinine Ratio 12.6, Glucose 410 H, Calcium 8.8, Acetone Level SMALL H 07/17/24 14:52: Urine Color Yellow, Urine Clarity Clear, Urine pH 5.0, Ur Specific [place] 1.010, Urine Protein Negative, Urine Glucose (UA) 1000 H, Urine Ketones 150 A*, Urine Occult Blood Negative, Urine Nitrite Negative, Urine Bilirubin Negative, Urine Urobilinogen Normal, Ur Leukocyte Esterase Negative, Urine RBC 0 SEEN, Urine WBC 0 SEEN, Ur Squamous Epith Cells 0 SEEN, Urine Bacteria 0 SEEN, Urine Mucus 0 SEEN Assessment & Plan Assessment/Plan (1) Diabetic ketoacidosis: (2) Type 1 diabetes mellitus: PLAN: Plan #DKA in setting of chronic type 1 diabetes -Serum glucose in ED 480, anion gap 16 w/ bicarb 19 -Urine ketones 150 -Serum acetone small -Admit to intensive care unit -N.p.o. -Insulin drip started -Aggressive fluid hydration -Glucose checks and DKA protocol -BMP every 4H -Replace electrolytes per protocol -I's and O's -A1c in the a.m. -When serum glucose is <250 mg/dl, change IV fluids to D5%1/2NS at 150 ml/hr and continue insulin drip as per nomogram -May benefit from following with an supervisor compressed yeast postdischarge # History of ADHD -Presently on Adderall -Patient filled this on the however only had 3 pills left in the bottle even though he filled 30-day supply and has only been 15 days, reports he had been using more than prescribed but has not used it in 2 days with intent of stopping -Continue to hold -Will need outpatient follow-up # Depression -In ED patient reports taking 100 mg of Zoloft daily, will continue this #Tobacco use -Advise cessation -Nicotine replacement available if desired #DVT ppx: Lovenox subcu Mayda Grissom MD Charges/Coding Visit Charges Inpatient E&M: 22356 Init Hosp L1
[2024-07-17] MEDS: Insulin Lispro 100 UNIT in 0.9% Normal Saline (100mL Bag) 99 ML 5.6 UNIT CONT INF (16:35)
[2024-07-17] MEDS: Dext 5%-0.45% NS 1,000 ML 150 ML IV (17:48)
[2024-07-17 18:17] LABS: Bedside Glucose 173 mg/dL (74-106)
[2024-07-17 18:39] LABS: Anion Gap 9 (5-15); BUN 9 mg/dL (7-18); BUN/Creat Ratio 9.9 RATIO (10-20); Calcium,Total 9.1 mg/dL (8.5-10.1); Chloride 106 mmol/L (98-107); EST Glomerular Filtration Rate 112 mL/min (>60); Est Glom Filt Rate - Afr Amer 135 mL/min (>60); Estimated Creatinine Clearance 105.06 ml/min; Glucose 132 mg/dL (74-106); Magnesium 1.9 mg/dL (1.6-2.6); Potassium 3.2 mmol/L (3.5-5.1); Sodium Level 141 mmol/L (136-145)
[2024-07-17 19:07] LABS: Bedside Glucose 123 mg/dL (74-106)
--- NOTE | 2024-07-17 19:49 | PN.HOSP_ITS ---
Hospitalist Note Glucose 123, gap closed, bicarb within normal limits, suspect that patient's DKA especially given how quickly it resolved was due to noncompliance with his long- acting insulin. Patient not nauseous and willing to eat, resume diet and subcu insulin. Drip to be DC'd 2 hours after eating/subcu insulin patient tolerating. If patient remains stable will be able to make PCU status overnight
[2024-07-17] MEDS: Insulin Glargine-YFGN 100 UNIT/ML Pen 15 UNIT SC (20:46)
[2024-07-17] MEDS: Potassium Chloride 10mEq/100mL 10 MEQ/100 ML IV.SOLN. 100 MEQ IV BOLUS ×3 (20:47→23:40)
[2024-07-18 00:45] LABS: Bedside Glucose 103 mg/dL (74-106)
[2024-07-18 00:45] LABS: Bedside Glucose 117 mg/dL (74-106)
[2024-07-18] MEDS: Potassium Chloride 10mEq/100mL 10 MEQ/100 ML IV.SOLN. 100 MEQ IV BOLUS (01:03)
[2024-07-18 05:00] VITALS: BP 114/70; PULSE 76; RESP 12; TEMP 36.3; O2SAT 99
[2024-07-18 06:00] VITALS: BMI 19.1
[2024-07-18 06:19] LABS: Absolute Lymphocyte Count 2.92 X10^3/uL (0.83-4.51); Absolute Neutrophil Count 3.7 X10^3/uL (2.0-7.7); Basophil# 0.04 X10^3/uL; Basophil% 0.6 % (0-1); Eosinophil# 0.18 X10^3/uL; Eosinophils% 2.5 % (0-5); Hematocrit 41.6 % (40-54); Hemoglobin 13.6 g/dL (13.0-16.5); Lymphocyte # 2.92 X10^3/ul (0.83-4.51); Lymphocyte % 40.5 % (19-41); Mean Corp Hgb Conc 32.7 g/dL (32-36); Mean Corpuscular Hgb 30.2 pg (27.0-32.0); Mean Corpuscular Volume 92.2 fL (80-94); Mean Platelet Vol. 8.8 fl (6.2-12.0); Monocyte% 5.5 % (0-10); NRBC Flagged by Analyzer 0 % (0-5); Neutrophil # 3.66 X10^3/uL (2.7-7.7); Neutrophil % 50.8 % (47-70); Platelet Count 310 K/mm3 (150-450); RBC Distribution Width SD 40.9 fl (35.1-43.9); Red Blood Count 4.51 M/mm3 (4.6-6.2); White Blood Count 7.2 K/mm3 (4.4-11.0)
[2024-07-18 07:12] LABS: ALB/GLOB Ratio 1.1 RATIO (0.9-2.4); AST(SGOT) 136 U/L (15-37); Alanine Aminotransfer ALT/SGPT 167 U/L (16-61); Albumin, Serum 3.3 g/dL (3.2-5.0); Alkaline Phosphatase 86 U/L (45-117); Anion Gap 9 (5-15); BUN 7 mg/dL (7-18); BUN/Creat Ratio 8.2 RATIO (10-20); Chloride 105 mmol/L (98-107); Creatinine, Serum 0.85 mg/dL (0.70-1.30); EST Glomerular Filtration Rate 120 mL/min (>60); Est Glom Filt Rate - Afr Amer 145 mL/min (>60); Estimated Creatinine Clearance 111.22 ml/min; Glucose 151 mg/dL (74-106); Magnesium 2.3 mg/dL (1.6-2.6); Potassium 3.9 mmol/L (3.5-5.1); Protein, Total 6.3 g/dL (6.4-8.2); Sodium Level 141 mmol/L (136-145); Thyroid Stim Hormone (TSH) 0.914 uIU/mL (0.358-3.740)
[2024-07-18 08:06] LABS: Bedside Glucose 169 mg/dL (74-106)
[2024-07-18] MEDS: Insulin Lispro 100 UNIT/ML INSULN.PEN 10 UNIT SC (08:39)
[2024-07-18] MEDS: Insulin Lispro 100 UNIT/ML INSULN.PEN SC (08:40)
[2024-07-18] MEDS: 0.9% Saline Lock 10 ML Syringe IV (08:43)
--- NOTE | 2024-07-18 08:56 | PN.HOSP_ITS ---
Reason for Visit Reason for Visit: Diagnoses Type 1 diabetes mellitus without complications (07/17/24) Type 2 diabetes mellitus with ketoacidosis without coma (07/17/24) Subjective Subjective Feels better. States he been using his insulin but has been misusing Adderall. Had been established with Dr. Peck in the past but had not seen her in a few years. Objective Data Objective Data Vital Signs: Vital Signs Temp Pulse Resp BP Pulse Ox O2 Del Method 36.3 C L 76 12 114/70 99 Room Air 07/18/24 05:00 07/18/24 05:00 07/18/24 05:00 07/18/24 05:00 07/18/24 05:00 07/18/24 05:00 Oxygen Delivery Method Room Air Weight: 57.2 kg Body Mass Index (BMI) 19.1 Intake & Output: Intake and Output for Last 24 Hours 07/16/24 07/17/24 07/18/24 23:59 23:59 23:59 Intake Total 1929.64 / 1929.64 200 / 200 Balance 192.64 / 192.64 200 / 200 Lab / Micro Data 07/18/24 05:20 07/18/24 05:20 Labs: Laboratory Results - last 24 hr 07/17/24 14:17: POC Glucose 480 H* 07/17/24 14:45: WBC 7.7, RBC 4.45 L, Hgb 13.5, Hct 40.7, MCV 91.5, MCH 30.3, MCHC 33.2, RDW Std Deviation 40.7, RDW Coeff of Violeta 12.0, Plt Count 271, MPV 8.6, Immature Gran % (Auto) 0.400, Neut % (Auto) 78.8 H, Lymph % (Auto) 14.9 L, [place] % (Auto) 3.9, Eos % (Auto) 1.6, Baso % (Auto) 0.4, Absolute Neuts (auto) 6.1, Absolute Lymphs (auto) 1.15, Nucleated RBC % 0, Sodium 133 L, Potassium 3.6, Chloride 98, Carbon Dioxide 19.0 L, Anion Gap 16 H, BUN 13, Creatinine 1.03, Est GFR (MDRD) Af Amer 117, Est GFR (MDRD) Non-Af 96, BUN/Creatinine Ratio 12.6, Glucose 410 H, Calcium 8.8, Acetone Level SMALL H 07/17/24 14:52: Urine Color Yellow, Urine Clarity Clear, Urine pH 5.0, Ur Specific [place] 1.010, Urine Protein Negative, Urine Glucose (UA) 1000 H, Urine Ketones 150 A*, Urine Occult Blood Negative, Urine Nitrite Negative, Urine Bilirubin Negative, Urine Urobilinogen Normal, Ur Leukocyte Esterase Negative, Urine RBC 0 SEEN, Urine WBC 0 SEEN, Ur Squamous Epith Cells 0 SEEN, Urine Bacteria 0 SEEN, Urine Mucus 0 SEEN 07/17/24 17:37: POC Glucose 173 H 07/17/24 17:55: Sodium 141, Potassium 3.2 L, Chloride 106, Carbon Dioxide 26.0, Anion Gap 9, BUN 9, Creatinine 0.90, Estim Creat Clear Calc 105.06, Est GFR (MDRD) Af Amer 135, Est GFR (MDRD) Non-Af 112, BUN/Creatinine Ratio 9.9 L, G lucose 132 H, Calcium 9.1, Magnesium 1.9 07/17/24 18:45: POC Glucose 123 H 07/17/24 20:04: POC Glucose 103 07/17/24 20:45: POC Glucose 117 H 07/18/24 05:20: WBC 7.2, RBC 4.51 L, Hgb 13.6, Hct 41.6, MCV 92.2, MCH 30.2, MCHC 32.7, RDW Std Deviation 40.9, RDW Coeff of Violeta 12.0, Plt Count 310, MPV 8.8, Immature Gran % (Auto) 0.100, Neut % (Auto) 50.8, Lymph % (Auto) 40.5, [place] % (Auto) 5.5, Eos % (Auto) 2.5, Baso % (Auto) 0.6, Absolute Neuts (auto) 3.7, Absolute Lymphs (auto) 2.92, Nucleated RBC % 0, Sodium 141, Potassium 3.9, Chloride 105, Carbon Dioxide 27.0, Anion Gap 9, BUN 7, Creatinine 0.85, Estim Creat Clear Calc 111.22, Est GFR (MDRD) Af Amer 145, Est GFR (MDRD) Non-Af 120, BUN/Creatinine Ratio 8.2 L, Glucose 151 H, Calcium 9.0, Phosphorus 3.0, Magnesium 2.3, Total Bilirubin 0.40, AST 136 H, ALT 167 H, Alkaline Phosphatase 86, Total Protein 6.3 L, Albumin 3.3, Globulin 3.0, Albumin/Globulin Ratio 1.1, TSH 0.914 07/18/24 07:46: POC Glucose 169 H Physical Exam Const alert and no apparent distress HEENT head/scalp atraumatic and moist oral mucous membranes Resp normal respiratory effort, no retractions, no use of accessory muscles and clear to auscultation bilaterally Cardio regular rate, regular rhythm, S1 normal heart sound and S2 normal heart sound GI normal to inspection, nondistended, normoactive bowel sounds, soft to palpation, non-tender and non-distended Neuro Sensorium / Orientation: awake and alert Assessment & Plan Assessment/Plan (1) Diabetic ketoacidosis: (2) Type 1 diabetes mellitus: PLAN: Plan DKA in setting of chronic type 1 diabetes * Resolved * Back on basal and prandial insulin. * Follow-up with endocrinology strongly recommended. * Patient requesting prescription for his Lantus. I talked to him [id number] following up with endocrinology and seeing about getting an insulin pump and a continuous glucose monitor. He states that he did previously have a CGM in the past but was not useful for him because he was very thin at that time. Though he still very thin he said that he has bulked up in the interim. History of ADHD and amphetamine misuse * Patient taking Adderall but went through 30-day supply 15 days. * Follow up with Chaya Varghese (who prescribes the medication) #DVT ppx: Lovenox subcu
[2024-07-18 09:11] LABS: Hemoglobin A1c 9.7 % (3.8-5.6)
[2024-07-18 11:00] VITALS: BP 119/96; PULSE 88; RESP 14; TEMP 35.7; O2SAT 99
--- NOTE | 2024-07-18 11:03 | DS.PCM_ITS ---
Providers Date of Admission: 07/17/24 Primary Care Physician: ELMER CortezC Reason For Visit: DIABETIC KETOACIDOSIS Diagnosis Discharge Diagnosis (1) Diabetic ketoacidosis: Status: Acute Code(s): E11.10 - Type 2 diabetes mellitus with ketoacidosis without coma (2) Type 1 diabetes mellitus: Status: Acute Code(s): E10.9 - Type 1 diabetes mellitus without complications Plan DKA in setting of chronic type 1 diabetes * Resolved * Back on basal and prandial insulin. * Follow-up with endocrinology strongly recommended. * Patient requesting prescription for his Lantus. I talked to him [id number] following up with endocrinology and seeing about getting an insulin pump and a continuous glucose monitor. He states that he did previously have a CGM in the past but was not useful for him because he was very thin at that time. Though he still very thin he said that he has bulked up in the interim. History of ADHD and amphetamine misuse * Patient taking Adderall but went through 30-day supply 15 days. * Follow up with Chaya Varghese (who prescribes the medication) #DVT ppx: Lovenox subcu Medications at Discharge Home Medications blood-glucose sensor (FreeStyle [place] 3 Sensor device) #2 ea 08/25/23 dextroamphetamine-amphetamine ER 30 mg 24hr capsule,extend release 1 cap PO DAILY adhd 03/30/24 insulin lispro 100 unit/mL subcutaneous solution (Humalog U-100 Insulin) 14 unit subcut TID DM1 03/30/24 insulin glargine 100 unit/mL (3 mL) subcutaneous pen (Lantus Solostar U-100 Insulin) 18 unit (0.18 mL) subcut QHS DIABETES #15 mL 07/18/24 Weight / BMI Weight Weight: 57.2 kg Body Mass Index (BMI) 19.1 ABG / Lab / Microbiology Data 07/18/24 05:20 07/18/24 05:20 Laboratory: Laboratory Results - last 24 hr 07/17/24 14:17: POC Glucose 480 H* 07/17/24 14:45: WBC 7.7, RBC 4.45 L, Hgb 13.5, Hct 40.7, MCV 91.5, MCH 30.3, MCHC 33.2, RDW Std Deviation 40.7, RDW Coeff of Violeta 12.0, Plt Count 271, MPV 8.6, Immature Gran % (Auto) 0.400, Neut % (Auto) 78.8 H, Lymph % (Auto) 14.9 L, [place] % (Auto) 3.9, Eos % (Auto) 1.6, Baso % (Auto) 0.4, Absolute Neuts (auto) 6.1, Absolute Lymphs (auto) 1.15, Nucleated RBC % 0, Sodium 133 L, Potassium 3.6, Chloride 98, Carbon Dioxide 19.0 L, Anion Gap 16 H, BUN 13, Creatinine 1.03, Est GFR (MDRD) Af Amer 117, Est GFR (MDRD) Non-Af 96, BUN/Creatinine Ratio 12.6, Glucose 410 H, Calcium 8.8, Acetone Level SMALL H 07/17/24 14:52: Urine Color Yellow, Urine Clarity Clear, Urine pH 5.0, Ur Specific [place] 1.010, Urine Protein Negative, Urine Glucose (UA) 1000 H, Urine Ketones 150 A*, Urine Occult Blood Negative, Urine Nitrite Negative, Urine Bilirubin Negative, Urine Urobilinogen Normal, Ur Leukocyte Esterase Negative, Urine RBC 0 SEEN, Urine WBC 0 SEEN, Ur Squamous Epith Cells 0 SEEN, Urine Bacteria 0 SEEN, Urine Mucus 0 SEEN 07/17/24 17:37: POC Glucose 173 H 07/17/24 17:55: Sodium 141, Potassium 3.2 L, Chloride 106, Carbon Dioxide 26.0, Anion Gap 9, BUN 9, Creatinine 0.90, Estim Creat Clear Calc 105.06, Est GFR (MDRD) Af Amer 135, Est GFR (MDRD) Non-Af 112, BUN/Creatinine Ratio 9.9 L, G lucose 132 H, Calcium 9.1, Magnesium 1.9 07/17/24 18:45: POC Glucose 123 H 07/17/24 20:04: POC Glucose 103 07/17/24 20:45: POC Glucose 117 H 07/18/24 05:20: WBC 7.2, RBC 4.51 L, Hgb 13.6, Hct 41.6, MCV 92.2, MCH 30.2, MCHC 32.7, RDW Std Deviation 40.9, RDW Coeff of Violeta 12.0, Plt Count 310, MPV 8.8, Immature Gran % (Auto) 0.100, Neut % (Auto) 50.8, Lymph % (Auto) 40.5, [place] % (Auto) 5.5, Eos % (Auto) 2.5, Baso % (Auto) 0.6, Absolute Neuts (auto) 3.7, Absolute Lymphs (auto) 2.92, Nucleated RBC % 0, Sodium 141, Potassium 3.9, Chloride 105, Carbon Dioxide 27.0, Anion Gap 9, BUN 7, Creatinine 0.85, Estim Creat Clear Calc 111.22, Est GFR (MDRD) Af Amer 145, Est GFR (MDRD) Non-Af 120, BUN/Creatinine Ratio 8.2 L, Glucose 151 H, Hemoglobin A1c 9.7 H, Calcium 9.0, Phosphorus 3.0, Magnesium 2.3, Total Bilirubin 0.40, AST 136 H, ALT 167 H, Alkaline Phosphatase 86, Total Protein 6.3 L, Albumin 3.3, Globulin 3.0, Albumin/Globulin Ratio 1.1, TSH 0.914 07/18/24 07:46: POC Glucose 169 H D/C Instructions Discharge Diet: 2000 Calorie Control Diet Meaningful Use Info Meaningful Use Meaningful Use Diagnoses (Choose all that apply): None applicable Ischemic Stroke Statin Dosing Therapy Reference: STATIN DOSE THERAPY REFERENCE: * Patients > 75 years receive moderate or high dose statin therapy. * Patients 75 years or YOUNGER should receive HIGH intensity statin dose unless contraindicated. You will be required to document reason for non-treatment if statin daily dose does not meet guidelines. HIGH DOSE STATIN THERAPY DAILY Atorvastatin > than or = to 40 mg Rosuvastatin > than or = to 20 mg Amlodipine + Atorvastatin > than or = to 2.5/40 mg Ezetimibe + Simvastatin 10/80 mg Simvastatin 80mg Discharge Plan Admission Admit Date/Time: 07/17/24 15:49 Primary Reason for Your Visit: DKA Attending Provider: Maikol Serna Primary Care Provider: Chaya Varghese NP Consulting Providers: Mayda Grissom Discharge Orders/Prescriptions Prescriptions: Continued (DME) FreeStyle [place] 3 Sensor Device See Rx Instructions .Route Qty: 2 5RF Rx Instructions: 1 sensor 14 days dextroamphetamine-amphetamine 30 mg capsule,extended release 24hr 1 cap PO DAILY insulin lispro [Humalog U-100 Insulin] 100 unit/mL solution 14 unit subcut TID insulin glargine [Lantus Solostar U-100 Insulin] 100 unit/mL (3 mL) insulin pen 18 unit SUBCUT QHS Qty: 15 1RF Referrals / Follow Up: [facility] [Provider Group] - Within 1 Month Chaya Varghese NP, [employer] [Primary Care Provider] - Disposition Disposition (needs filled in before D/C Order can be placed): Home, Self Care Charges/Coding Visit Charges Inpatient E&M: 93259 Disch Hosp
[2024-07-18 11:05] VITALS: BP 119/96; PULSE 88; RESP 14; TEMP 35.7; O2SAT 99
[2024-07-18] MEDS: Sertraline 100 MG Tablet PO (11:05)
[2024-07-18 11:22] LABS: Bedside Glucose 126 mg/dL (74-106)
--- NOTE | 2024-07-18 11:30 | CASEMGMT ---
RN CM Face to Face with patient for initial transition planning/care coordination assessment. RN CM introduced self and role at [facility]. Patient lying in bed, alert and oriented. Patient willing to participate in assessment and is able to answer all questions appropriately. Care providers, pharmacy, and demographics verified. 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 Living Arrangements: Patient lives with significant other in a 5th floor apartment with elevator. Patient is independent. Transportation: walks, father assist with transport when needed. DME/HHC: Patient states he has glucometer with supplies and insulin with supplies. No previous HHC or SNF. Patient wishes to discharge home and is aware to follow up with PCP and endocrinology at discharge. Patient states he has no further needs or concerns at this time. CM to follow for discharge planning needs that may arise. Disposition Plan: Patient to discharge home with family support and follow-up plans in place. Yue QUINONES, RN, CM
== END 2024-07-18 15:00 | disposition home or self-care (01) | DRG 639 ==
LOC: ED 15:39 → ICU 16:12
PROVIDERS: Admitting Provider Internal Medicine; Emergency Provider Emergency Medicine; PCP Internal Medicine
DX: E10.10 Type 1 diabetes mellitus with ketoacidosis without coma (principal); F15.10 Other stimulant abuse, uncomplicated; F32.A Depression, unspecified; F17.290 Nicotine dependence, other tobacco product, uncomplicated; Z79.4 Long term (current) use of insulin; F90.9 Attention-deficit hyperactivity disorder, unspecified type; Z91.148 Patient's other noncompliance with medication regimen for other reason; Z79.899 Other long term (current) drug therapy
CPT/HCPCS: 80048; 80053; 81001; 82009; 82962; 83036; 83735; 84100; 84443; 85025; 99284; J7030; A4216; J7799